=== PATIENT | female | born 1960 | race Asian ===

== ENCOUNTER 2016-08-24 10:21 | Inpatient (IN) | payer MEDICARE, MEDICAID ==
--- NOTE | 2016-08-24 10:59 | ED Physician Chart ---
Chief Complaint/HPI - Patient Information Date Seen:: 08/24/16 Time Seen:: 10:45 Chief Complaint:: agitation History of Present Illness:: This 56-year-old female was discharged from a assisted facility last week. She has since then been living with her elderly mother. She was fine for the first 2-3 days only but then had a hard time sleeping at night. Yesterday the patient became increasingly agitated and for example asked her mother to leave the house. The patient is accompanied by her brother. The plan is to have the patient readmitted to the assisted facility but the they will accept her only after she's been discharged from an acute care facility. Allergies:: Allergies Allergy/AdvReac Type Severity Reaction Status Date / Time No Known Allergies Allergy Verified 08/24/16 10:47 Vitals:: Vital Signs - 8 hr 08/24/16 10:25 Temp 98.9 F HR 108 RR 20 BP 145/73 O2 Sat % 98 Historian:: Patient, Family Member Review:: Nurse's Note Reviewed Review of Systems - Review of Systems General/Constitutional: No fever, No chills Skin: No skin lesions Head: No headache Eyes: No loss of vision ENT: No earache Neck: No neck pain Cardio Vascular: No chest pain, No palpitations Pulmonary: No SOB GI: No nausea, No vomiting G/U: No dysuria, No frequency Musculoskeletal: No bone or joint pain, No back pain Endocrine: No polyuria, No polydipsia Psychiatric: Prior psych history, Depression Hematopoietic: No bruising Allergic/Immuno: No urticaria Neurological: No syncope, No focal symptoms Past Medical History - Past Medical History Past Medical History: HTN (chronic renal disease; hypothyroidism; hyperlipidemia ; paranoid schizophrenia; anxiety; insomnia; major depression), Dyslipidemia, Thyroid disorder, Other (chronic renal disease; type 2 diabetes;) Family History: Diabetes Melitus, HTN Social History: Smoker, No Alcohol Surgical History: other (repair of left wrist laceration sustained 20 years ago in a suicide attempt) Psychiatricy History: Depression, Schizophrenia Medication: Reviewed Family Medical History - Family Member Father Age: 62 Ethnicity: Non- Living Status: Hx Family Hypertension: Yes Hx Family Stroke: Yes Hx Family Diabetes: Yes Physical Exam - Physical Examination General/Constitutional: Well-developed, well-nourished, Alert, No distress, Non- toxic appearing, Ambulatory Other Gen/Cons comments:: Alert and oriented to the correct year only Head: Atraumatic Eyes: Lids, conjuctiva normal, PERRL Skin: Nl inspection, No rash, No skin lesions, No ecchymosis, Well hydrated, No lymphadenopathy ENMT: External ears, nose nl, TM canals nl, Nasal exam nl, Oropharynx nl, Tonsils nl Other ENMT comments:: Some teeth carious to gumline Neck: No nuchal rigidity Respiratory: Nl effort/Exclusion, Clear to Auscultation Cardio Vascular: RRR, No murmur, gallop, rubs, NL S1 S2 GI: No tenderness/rebounding/guarding, No organomegaly, Nondistended, No mass/ bruits : No CVA tenderness Extremities: No tenderness or effusion, Full ROM, Normal digits & nails Neuro/Psych: Normal gait, No focal deficits Misc: Normal back Labs/Radiology/EKG Results - Lab Results Results: Laboratory Results - last 24 hr 08/24/16 08/24/16 11:03 11:03 WBC 7.7 RBC 3.87 Hgb 12.4 Hct 35.3 MCV 91.3 MCH 32.0 H MCHC Differential 35.0 RDW 11.8 Plt Count 242 MPV 7.9 Neutrophils % 68.5 Lymphocytes % 24.4 Monocytes % 5.8 Eosinophils % 0.8 Basophils % 0.5 Sodium 131 L Potassium 4.1 Chloride 103 Carbon Dioxide 24.0 Anion Gap 8.1 BUN 29 H Creatinine 1.7 H Est GFR ( Amer) 39.7 Est GFR (Non-Af Amer) 32.8 BUN/Creatinine Ratio 17.1 Glucose 352 H Calcium 8.9 Triglycerides 185 H Cholesterol 169 LDL Cholesterol Direct 97 HDL Cholesterol 49 - EKG Interpretations Rate & Rhythm: normal sinus rhythm with a rate of 95 [place]: left axis deviation Intervals: incomplete right bundle-branch block ED Septic Shock - . Is Septic Shock (SBP<90, OR Lactate>4 mmol\L) present?: No - <6hrs of presentation: Vital Signs: Vital Signs - 8 hr 08/24/16 10:25 Temp 98.9 F HR 108 RR 20 BP 145/73 O2 Sat % 98 Reassessment (Disposition) - Reassessment Reassessment Condition:: Unchanged - Diagnosis Diagnosis:: paranoid schiizophrenia; hyponatremia; renal insufficiency - Patient Disposition Admitted to:: [facility] Spoke to:: David Luther Admitting Medical Physician:: David Luther Admitting Psych Physician:: Chidi Guardado Condition at Disposition:: Stable, Unchanged ED Discharge Plan - Patient Disposition Instructions: Psychosis
[2016-08-24 11:10] LABS: % BASOPHILS 0.5 % (0.0-2.0); % EOSINOPHILS 0.8 % (0.0-5.0); % LYMPHOCYTES 24.4 % (20.0-50.0); % MONOCYTES 5.8 % (2.0-10.0); % NEUTROPHILS 68.5 % (40.0-80.0); HEMATOCRIT 35.3 % (35.0-45.0); HEMOGLOBIN 12.4 gm/dL (11.7-15.5); MEAN CELL VOLUME 91.3 fl (81-100); MEAN PLATELET VOLUME 7.9 fl; NEUTROPHILE ABSOLUTE 5.3 Th/cmm (1.8-8.0); PLATELET COUNT 242 Th/cmm (150-400); RED BLOOD COUNT 3.87 Mil/cmm (3.80-5.10); RED CELL DISTRIBUTION WIDTH 11.8 % (11.5-20.0); WHITE BLOOD COUNT 7.7 Th/cmm (4.8-10.8)
[2016-08-24 11:32] LABS: ANION GAP 8.1 (7.0-16.0); BUN/CREATININE RATIO 17.1; CALCIUM SERUM 8.9 mg/dL (8.6-10.3); CREATININE - SERUM 1.7 mg/dL (0.6-1.2); POTASSIUM SERUM 4.1 mEq/L (3.5-5.1)
[2016-08-24] MEDS ORDERED: Maalox 30 mL Cup PO PRN (16:10)
[2016-08-24] MEDS ORDERED: Magnesium Hydroxide (MOM) 30 mL UDC PO PRN (16:10)
[2016-08-24 16:20] VITALS: BP 142/84
[2016-08-24] MEDS ORDERED: Haloperidol Lactate 5 mg/mL 1mL Vial IM ONE (16:42)
[2016-08-24] MEDS ORDERED: Haloperidol Lactate 5 mg/mL 1mL Vial ONE (16:44)
[2016-08-24] MEDS ORDERED: Non-Formulary Item 1 EA (Lisinopril [Zestril*] 2.5 MG) PO SCH (21:00)
[2016-08-25] MEDS: INSULIN ASPART SLIDING SCALE 100 UNITS/ML UNIT SUBQ SCH ×2 (06:51→17:07)
[2016-08-25 08:09] LABS: HEP B CORE IGM Negative (Negative); HEP C ANTIBODY <0.1 s/co ratio (0.0-0.9)
[2016-08-25] MEDS: Benztropine 1 MG TAB PO SCH (08:56)
[2016-08-25] MEDS: Multivitamin Tab PO SCH (08:56)
[2016-08-25] MEDS: Insulin Detemir 100 units/mL 10mL Vial SUBQ SCH ×2 (08:58→17:09)
--- NOTE | 2016-08-25 14:21 | History & Physical ---
ADMIT DATE: 08/24/2016 PATIENT IDENTIFICATION: A 56-year-old female. CHIEF COMPLAINT: "I want to go home." HISTORY OF PRESENT ILLNESS: A 56-year-old [place] female who was discharged from retirement facility to home and she was living with her and mother. The patient was noted to have increasing agitation and difficulty in sleeping. The patient was brought in to the Emergency Room at the [facility]. The patient was evaluated and subsequently admitted to Geropsych Unit. PAST MEDICAL HISTORY: Remarkable for: 1. Diabetes. 2. Hypertension. 3. Hyperlipidemia. 4. DJD. 5. Hypothyroidism. 6. Psychotic disorder. MEDICATIONS AT HOME: List has been reviewed and reconciled appropriately. ALLERGIES: The patient is allergic to not on any medications. SOCIAL HISTORY: She lives with her mother. The patient occasionally smokes. The patient denies any alcohol or drug use. She used to work in a [employer] prior to be ____ her disability. FAMILY MEDICAL HISTORY: Remarkable for diabetes and hypertension. REVIEW OF SYSTEMS: The patient currently denies any headache, blurred vision, double vision, dysphagia, odynophagia, runny nose, stuffy nose, fever, chills, cough, chest pain, shortness of breath, palpitation, dizziness, nausea, vomiting, diarrhea, dysuria, hematuria, hematochezia, melena. No seizure or syncopal episode. PHYSICAL EXAMINATION: GENERAL: The patient is alert, awake, oriented, lying in the bed without any acute distress. VITAL SIGNS: Temperature 98, pulse is 74, respiratory rate 18, blood pressure is ____/73. SKIN: Warm to touch. Adequate skin turgor. No petechiae. No purpura. HEENT: Normocephalic, atraumatic. Extraocular muscles are intact. Tongue was pink and coated. Multiple absent teeth and poor dental hygiene noted. No oral lesions noted. No exudate. No sinus tenderness. External auditory canal and tympanic membranes are well visualized. NECK: Supple, no JVD, no hepatojugular reflux. No lymphadenopathy, thyromegaly or carotid bruit. HEART: Both heart sounds are regular. No S3, no S4, no murmur. CHEST: Lung equal in expansion, no wheezing, no crackles. ABDOMEN: Soft. No guarding, no rigidity. Liver and spleen palpable. No palpable mass. EXTREMITIES: No edema, no cyanosis or clubbing. Peripheral pulses +2. No calf tenderness noted. NEUROLOGIC: Alert, awake, lying in the bed without any acute distress, 2-12 cranial nerves are intact. Power in upper and lower extremities 5-. Sensation to touch intact. Babinskis in both toes are going down. No cerebral sign. AVAILABLE DIAGNOSTIC DATA: Performed in the Emergency Room has been reviewed. CLINICAL IMPRESSION: 1. Most likely chronic kidney disease, stage III. 2. Diabetes. 3. Hypertension. 4. Hyperlipidemia. 5. Hypothyroidism. 6. Degenerative joint disease. 7. Psychotic disorder exacerbation. 8. Debility. PLAN: The patient is admitted at this time to psychiatric unit. Psychiatric evaluation and management deferred to psychiatrist. The patient will be placed on sliding scale insulin along with Levemir. Continue her lisinopril for the hypertension and metformin for the diabetes along with other medication as the patient was receiving. The patient will be followed by us during the stay in the Geropsych Unit at [facility]. The patient will be given general nursing care as well. Fall precaution will be given. Care plan has been reviewed and discussed with the staff. JOB# [id number]
--- NOTE | 2016-08-25 15:12 | History & Physical ---
ADMIT DATE: 08/25/2016 IDENTIFYING INFORMATION: The patient is 56-year-old female. REASON FOR ADMISSION: The patient came in because of agitation, uncontrolled at home. HISTORY OF PRESENT ILLNESS: The patient was a poor historian. ___ with her, she said she is not going to talk to me. She has her own psychiatrist. According to the information from the staff that apparently she is ____ in [facility] until 2 weeks ago and she went home. Her brother said she was not manageable at home and when she first came to the unit, she was very agitated, loud, very hard to redirect, had to be medicated. The patient apparently has been on psychotropic medication. She is on Abilify 20 mg at bedtime. She is on Depakote. The dose is not confirmed yet. The patient is on Cogentin 1 mg daily. The patient was a very poor historian and refused to talk to me. When I started ____ questions, she started yelling and punching the bed. She said she is not willing to talk to me, very poor insight. PAST PSYCHIATRIC HISTORY: Some mental illness. MEDICAL HISTORY: Deferred to the medical problems. ALLERGIES: No known drug allergies. MEDICATIONS: She is diabetic. She has high blood pressure. She is also on Zoloft 50 mg daily, Klonopin 1 mg twice a day, metformin, diphenhydramine. FAMILY AND SOCIAL HISTORY: Unable to get any information. The only information I had that she was in a halfway, [facility], then went home 2 weeks ago and has been causing management problems. MENTAL STATUS EXAMINATION: The patient was uncooperative, loud, punching the bed when I started asking questions, telling me is none of my business, how old she is or she has children. She would not answer any of my questions. I was unable to do a formal mental status exam on her as always she was very agitated, irritable, unable to make sense be reasonable. Unable to test her memory. Her insight and judgment is impaired. I was unable to ask about her sleep or appetite, whether she wants to harm herself or anybody, whether she is hearing voices or seeing things. IMPRESSION: AXIS I: Psychosis, not otherwise specified, dementia, cognitive disorder, not otherwise specified. MEDICAL DIAGNOSES: Diabetes mellitus and hypertension. Her assets, she is taking her medication. Negative poor coping skills. INITIAL TREATMENT PLAN: The patient will be started back on her medication. We will do group therapy, milieu therapy, individual therapy. ESTIMATED LENGTH OF STAY: 3-7 days. DISCHARGE CRITERIA: Decrease agitation and psychosis. After discharge, outpatient. PSYCHIATRIC# [id number]
[2016-08-26] MEDS: INSULIN ASPART SLIDING SCALE 100 UNITS/ML UNIT SUBQ SCH ×2 (06:37→16:49)
[2016-08-26] MEDS: Benztropine 1 MG TAB PO SCH (09:11)
[2016-08-26] MEDS: Multivitamin Tab PO SCH (09:11)
[2016-08-26] MEDS: Insulin Detemir 100 units/mL 10mL Vial SUBQ SCH ×2 (10:23→18:34)
--- NOTE | 2016-08-26 21:54 | Progress Notes ---
DATE: 08/26/[address] Guardado. Case was discussed with staff of the patient, reviewed records. The patient continues to be unpredictable and impulsive. She is conserved. She has been needing redirection. She is on Depakote 500 mg twice a day, Zoloft 50 mg daily, aripiprazole 20 mg at bedtime, and Klonopin 1 mg twice a day with no side effects with the medication, no sedation, no nausea, and no extrapyramidal symptoms. Also, she is on Depakote ____ mg twice a day. Depakote level is pending. We will continue to work with the patient in group therapy, milieu therapy, and adjust the medication as needed. JOB# [id number]
[2016-08-27] MEDS: INSULIN ASPART SLIDING SCALE 100 UNITS/ML UNIT SUBQ SCH ×2 (06:36→17:44)
[2016-08-27] MEDS: Multivitamin Tab PO SCH (08:16)
[2016-08-27] MEDS: Insulin Detemir 100 units/mL 10mL Vial SUBQ SCH ×2 (08:17→17:45)
[2016-08-27] MEDS: Benztropine 1 MG TAB PO SCH (08:17)
--- NOTE | 2016-08-28 04:41 | Progress Notes ---
DATE: 08/27/2016 Case was discussed with staff of the patient, reviewed records. The patient continues to be unpredictable, impulsive, continues to have poor insight. Unable to make safe plan for self-care. Continues to have episodes where she is loud, needing redirection. Continues to be unpredictable, impulsive. She has a conservator that is her brother. She has been compliant with the medication, no side effects, no sedation, no nausea and no extrapyramidal symptoms. Lab work showed Depakote levels to be a 56.3, which is within acceptable range. MRSA screen was negative. Her TSH was within normal range. RPR nonreactive. She has high triglycerides 185. The rest of the lipid profile within normal range. Hemoglobin A1c was high at 7.3. Chemistry panel showed low sodium and high blood sugar, high BUN and high creatinine, defer that to the medical doctor. EKG shows normal axis, sinus rhythm, incomplete right bundle branch block. I will be consulting Dr. Luther regarding abnormal lab work and EKG ____ Delfina, the charge nurse regarding that as there is no way to ____ and we will continue outpatient group therapy, milieu therapy and adjust medications as needed. JOB# [id number]
[2016-08-28] MEDS: INSULIN ASPART SLIDING SCALE 100 UNITS/ML UNIT SUBQ SCH ×2 (07:05→17:28)
[2016-08-28] MEDS: Multivitamin Tab PO SCH (08:59)
[2016-08-28] MEDS: Benztropine 1 MG TAB PO SCH (09:00)
--- NOTE | 2016-08-28 09:38 | General Progress Note ---
Subjective - Review of Systems Subjective: PATIENT IS SEEN AND EXAMINED. UNABLE TO GET MEANINGFUL HISTORY. CHART REVIEWED. DISCUSSED WITH STAFF RE:CONCERNS. Objective - Results Result Diagrams: 08/24/16 11:03 08/24/16 11:03 Recent Labs: Laboratory Last Values WBC 7.7 Th/cmm (4.8-10.8) 08/24/16 11:03 RBC 3.87 Mil/cmm (3.80-5.10) 08/24/16 11:03 Hgb 12.4 gm/dL (11.7-15.5) 08/24/16 11:03 Hct 35.3 % (35.0-45.0) 08/24/16 11:03 MCV 91.3 fl (81-100) 08/24/16 11:03 MCH 32.0 pg (27.0-31.0) H 08/24/16 11:03 MCHC Differential 35.0 pg (28.0-36.0) 08/24/16 11:03 RDW 11.8 % (11.5-20.0) 08/24/16 11:03 Plt Count 242 Th/cmm (150-400) 08/24/16 11:03 MPV 7.9 fl 08/24/16 11:03 Neutrophils % 68.5 % (40.0-80.0) 08/24/16 11:03 Lymphocytes % 24.4 % (20.0-50.0) 08/24/16 11:03 Monocytes % 5.8 % (2.0-10.0) 08/24/16 11:03 Eosinophils % 0.8 % (0.0-5.0) 08/24/16 11:03 Basophils % 0.5 % (0.0-2.0) 08/24/16 11:03 Sodium 131 mEq/L (136-145) L 08/24/16 11:03 Potassium 4.1 mEq/L (3.5-5.1) 08/24/16 11:03 Chloride 103 mEq/L (98-107) 08/24/16 11:03 Carbon Dioxide 24.0 mEq/L (21.0-31.0) 08/24/16 11:03 Anion Gap 8.1 (7.0-16.0) 08/24/16 11:03 BUN 29 mg/dL (7-25) H 08/24/16 11:03 Creatinine 1.7 mg/dL (0.6-1.2) H 08/24/16 11:03 Est GFR ( Amer) 39.7 ml/min (>90) 08/24/16 11:03 Est GFR (Non-Af Amer) 32.8 ml/min 08/24/16 11:03 BUN/Creatinine Ratio 17.1 08/24/16 11:03 Glucose 352 mg/dL (70-105) H 08/24/16 11:03 POC Glucose 100 MG/DL (70 - 105) 08/28/16 05:56 Hemoglobin A1c % 7.3 % (4.0-6.0) H 08/24/16 11:03 Calcium 8.9 mg/dL (8.6-10.3) 08/24/16 11:03 Triglycerides 185 mg/dL (<150) H 08/24/16 11:03 Cholesterol 169 mg/dL (<200) 08/24/16 11:03 LDL Cholesterol Direct 97 mg/dL (75-193) 08/24/16 11:03 HDL Cholesterol 49 mg/dL (23-92) 08/24/16 11:03 TSH 0.66 uIU/ml (0.34-5.60) 08/24/16 11:03 Valproic Acid 56.3 ug/mL (50.0-100.0) 08/26/16 12:36 RPR NONREACTIVE (NONREACTIVE) 08/24/16 11:03 Hepatitis A IgM Ab Negative (Negative) 08/24/16 11:03 Hep Bs Antigen Negative (Negative) 08/24/16 11:03 Hep B Core IgM Ab Negative (Negative) 08/24/16 11:03 Hepatitis C Antibody <0.1 s/co ratio (0.0-0.9) 08/24/16 11:03 - Physical Exam Vitals and I&O: Vital Signs Temp 98.3 F 08/28/16 06:06 Pulse 96 08/28/16 06:06 Resp 20 08/28/16 06:06 BP 118/80 08/28/16 06:06 Pulse Ox 99 08/28/16 06:06 Intake & Output 08/27/16 08/28/16 08/28/16 18:59 06:59 18:59 Intake Total 1000 240 Balance 1000 240 Intake: Oral 1000 240 Other: # Voids 4 2 # Bowel Movements 1 0 Stool Characteristics Soft Formed Active Medications: Current Medications Acetaminophen (Tylenol) 650 mg PO Q4HR PRN PRN Reason: Pain (Mild) Stop: 10/23/16 16:09 Last Admin: 08/28/16 08:59 Dose: 650 mg Al Hydrox/Mg Hydrox/Simethicone (Maalox) 30 ml PO Q4HR PRN PRN Reason: GI DISTRESS Stop: 10/23/16 16:09 Aripiprazole (Abilify) 20 mg PO HS JOURDAN Stop: 10/23/16 20:59 Last Admin: 08/27/16 20:48 Dose: 20 mg Benztropine Mesylate (Cogentin) 1 mg PO DAILY JOURDAN Stop: 10/24/16 08:59 Last Admin: 08/28/16 09:00 Dose: 1 mg Clonazepam (Klonopin) 1 mg PO BID JOURDAN PRN Reason: Protocol Stop: 10/24/16 08:59 Last Admin: 08/28/16 09:00 Dose: 1 mg Divalproex Sodium (Depakote Dr) 500 mg PO BID JOURDAN PRN Reason: Protocol Stop: 10/24/16 08:59 Last Admin: 08/28/16 09:00 Dose: 500 mg Docusate Sodium (Colace) 100 mg PO DAILY JOURDAN Stop: 10/24/16 08:59 Last Admin: 08/28/16 09:00 Dose: 100 mg Insulin Aspart (Novolog Insulin Sliding Scale) 0 units SUBQ BIDAC JOURDAN PRN Reason: Protocol Stop: 10/24/16 07:29 Last Admin: 08/28/16 07:05 Dose: Not Given Insulin Detemir (Levemir Insulin) 23 units SUBQ BID JOURDAN PRN Reason: Protocol Stop: 10/24/16 08:59 Last Admin: 08/27/16 17:45 Dose: 23 unit Lisinopril (Zestril) 2.5 mg PO HS JOURDAN Stop: 10/23/16 20:59 Last Admin: 08/27/16 20:48 Dose: 2.5 mg Lorazepam (Ativan) 1 mg PO Q4HR PRN; Protocol PRN Reason: Anxiety Stop: 09/23/16 16:09 Lorazepam (Ativan) 1 mg PO Q6HR JOURDAN PRN Reason: Protocol Stop: 10/24/16 00:00 Last Admin: 08/28/16 06:45 Dose: 1 mg Multivitamins/Vitamin C (Theragran) 1 tab PO DAILY JOURDAN Stop: 10/24/16 08:59 Last Admin: 08/28/16 08:59 Dose: 1 tab Sertraline HCl (Zoloft) 50 mg PO DAILY JOURDAN PRN Reason: Protocol Stop: 10/24/16 08:59 Last Admin: 08/28/16 09:00 Dose: 50 mg Zolpidem Tartrate (Ambien) 5 mg PO HS PRN PRN Reason: Insomnia Stop: 10/23/16 16:09 Last Admin: 08/24/16 21:51 Dose: 5 mg General: Alert, Cooperative, No acute distress HEENT: Atraumatic, PERRLA, EOMI Neck: Supple Cardiovascular: Regular rate, Normal S1, Normal S2 Lungs: Clear to auscultation Abdomen: Bowel sounds, Soft Extremities: Other (no edema.) Neurological: Normal gait, Normal speech, Strength at 5/5 X4 ext, Normal tone Assessment/Plan - Assessment Assessment: DIABETES INSULIN REQUIRING. HYPERTENSION. HYPOTHYRODISM. CKD3. DJD. PSYCH DISORDER. HYPERLIPEDEMIA. - Plan Plan: MONITOR GLUCOSE AND VITALS INSULIN THERAPY PSYCH MEDS PSYCH FOLLOW UP. GENERAL NURSING CARE MEDICATION MANAGEMENT. SYMPTOMS CONTROL CONTINUE CURRENT CARE DISCUSSED WITH STAFF. Nutritional Asmnt/Malnutr-PDOC - Dietary Evaluation Malnutrition Findings (Please click <Entered> for more info): Nutritional Asmnt/Malnutrition Start: 08/25/16 14: 17 Text: Status: Active Freq: Document 08/25/16 14:17 GSUN (Rec: 08/25/16 14:30 GSUN [email or web address]) Nutritional Asmnt/Malnutrition Patient General Information Nutritional Screening High Risk Screening Diagnosis ER: paranoid schizophrenia, renal insufficiency Pertinent Medical Hx/Surgical Hx ER: HTN, chronic renal disease , hypothyroidism, hyperlipidemia, paranoid schizophrenia, anxiety, insomnia, major depression, DM2 Subjective Information 56 year old female from SNF. Upon entering pt's room, pt asked RD to leave, unable to interview. Mild fat wasting to legs noted. Spoke to MANAN Haile RN stated pt has very good appetite, eats whatever she wants, does not follow a DM diet, no difficulties chewing/ swallowing noted. RD discussed [id number] for pt with RN. Current Diet Order/ Nutrition Support [id number] Pertinent Medications Maalox, Colace, Novolog, Levemir, Theragran Pertinent Labs 08/24: sodium 131L, BUN 29H, creaitnine 1.7H, glucose 352H, A1c 7.3H, triglycerides 185H Nutritional Hx/Data Height 1.65 m Height (Calculated Centimeters) 165.1 Current Weight (lbs) 63.957 kg Weight (Calculated Kilograms) 64.0 Weight (Calculated Grams) 93995.5 [place] Body Weight 125 Weight Status Approriate GI Symptoms Skin Integrity/Comment: Paul 20. Skin intact. Estimated Nutritional Goals BEE in Kcals: Using Current wt Calories/Kcals/Kg CBW 64kg Kcals Calculated 1600-1920kcal (25-30kcal/kg) Protein: Using Current wt Protein g/kg: CBW Protein Calculated 38-1g (0.6-1g/kg, renal) Fluid: ml Per MD (hx. renal) Nutritional Problem 1. Problem Problem Altered nutrition related laboratory values related to Etiology DM aeb Signs/Symptoms: A1c 7.3, glucose 352 on adm Intervention/Recommendation Comments 1. Recommend [id number] to promote glycemic control. Discussed with MANAN Haile. 2. Monitor sodium level, recommend low sodium restriction to aid renal function if/once sodium level normalize. Expected Outcomes/Goals Expected Outcomes/Goals 1. PO intake to meet at least 75% of estimated nutritional needs.
[2016-08-28] MEDS: Insulin Detemir 100 units/mL 10mL Vial SUBQ SCH ×2 (09:45→17:31)
[2016-08-28] MEDS ORDERED: ARIPIPRAZOLE PO ONE (14:30)
[2016-08-28] MEDS ORDERED: Haloperidol Lactate 5 mg/mL 1mL Vial IM ONE (14:37)
[2016-08-28] MEDS: ARIPIPRAZOLE PO SCH (21:00)
[2016-08-29] MEDS: INSULIN ASPART SLIDING SCALE 100 UNITS/ML UNIT SUBQ SCH ×2 (06:47→16:52)
--- NOTE | 2016-08-29 07:33 | Progress Notes ---
DATE: 08/28/2016 Case was discussed with staff of the patient, reviewed records. The patient continues to be unpredictable, intrusive, interfering in everybody's business, loud, needing redirection, unpredictable, impulsive, continues to have poor insight. Continues to be unable to make safe plan for self-care. She is conserved, needing redirection. She is on Abilify 20 mg a day; I will be increasing the dose to 25 mg a day, and so far no side effects, no sedation, no nausea, no extrapyramidal symptoms. Her Depakote level is 56.3, which is within acceptable range which also means she has been taking her medication. We will continue to work with the patient in group therapy, milieu therapy, and adjust the medication as needed. JOB# [id number]
[2016-08-29] MEDS: Benztropine 1 MG TAB PO SCH (09:41)
[2016-08-29] MEDS: Insulin Detemir 100 units/mL 10mL Vial SUBQ SCH ×2 (09:42→17:59)
[2016-08-29] MEDS: Multivitamin Tab PO SCH (09:42)
--- NOTE | 2016-08-29 18:44 | General Progress Note ---
Subjective - Review of Systems Subjective: PATIENT IS SEEN AND EXAMINED. CHART REVIEWED. WHEN AM I GOING HOME. DISCUSSED WITH STAFF RE:CONCERNS. Objective - Results Result Diagrams: 08/24/16 11:03 08/24/16 11:03 Recent Labs: Laboratory Last Values WBC 7.7 Th/cmm (4.8-10.8) 08/24/16 11:03 RBC 3.87 Mil/cmm (3.80-5.10) 08/24/16 11:03 Hgb 12.4 gm/dL (11.7-15.5) 08/24/16 11:03 Hct 35.3 % (35.0-45.0) 08/24/16 11:03 MCV 91.3 fl (81-100) 08/24/16 11:03 MCH 32.0 pg (27.0-31.0) H 08/24/16 11:03 MCHC Differential 35.0 pg (28.0-36.0) 08/24/16 11:03 RDW 11.8 % (11.5-20.0) 08/24/16 11:03 Plt Count 242 Th/cmm (150-400) 08/24/16 11:03 MPV 7.9 fl 08/24/16 11:03 Neutrophils % 68.5 % (40.0-80.0) 08/24/16 11:03 Lymphocytes % 24.4 % (20.0-50.0) 08/24/16 11:03 Monocytes % 5.8 % (2.0-10.0) 08/24/16 11:03 Eosinophils % 0.8 % (0.0-5.0) 08/24/16 11:03 Basophils % 0.5 % (0.0-2.0) 08/24/16 11:03 Sodium 131 mEq/L (136-145) L 08/24/16 11:03 Potassium 4.1 mEq/L (3.5-5.1) 08/24/16 11:03 Chloride 103 mEq/L (98-107) 08/24/16 11:03 Carbon Dioxide 24.0 mEq/L (21.0-31.0) 08/24/16 11:03 Anion Gap 8.1 (7.0-16.0) 08/24/16 11:03 BUN 29 mg/dL (7-25) H 08/24/16 11:03 Creatinine 1.7 mg/dL (0.6-1.2) H 08/24/16 11:03 Est GFR ( Amer) 39.7 ml/min (>90) 08/24/16 11:03 Est GFR (Non-Af Amer) 32.8 ml/min 08/24/16 11:03 BUN/Creatinine Ratio 17.1 08/24/16 11:03 Glucose 352 mg/dL (70-105) H 08/24/16 11:03 POC Glucose 150 MG/DL (70 - 105) H 08/29/16 16:10 Hemoglobin A1c % 7.3 % (4.0-6.0) H 08/24/16 11:03 Calcium 8.9 mg/dL (8.6-10.3) 08/24/16 11:03 Triglycerides 185 mg/dL (<150) H 08/24/16 11:03 Cholesterol 169 mg/dL (<200) 08/24/16 11:03 LDL Cholesterol Direct 97 mg/dL (75-193) 08/24/16 11:03 HDL Cholesterol 49 mg/dL (23-92) 08/24/16 11:03 TSH 0.66 uIU/ml (0.34-5.60) 08/24/16 11:03 Valproic Acid 56.3 ug/mL (50.0-100.0) 08/26/16 12:36 RPR NONREACTIVE (NONREACTIVE) 08/24/16 11:03 Hepatitis A IgM Ab Negative (Negative) 08/24/16 11:03 Hep Bs Antigen Negative (Negative) 08/24/16 11:03 Hep B Core IgM Ab Negative (Negative) 08/24/16 11:03 Hepatitis C Antibody <0.1 s/co ratio (0.0-0.9) 08/24/16 11:03 - Physical Exam Vitals and I&O: Vital Signs Temp 98 F 08/29/16 15:47 Pulse 87 08/29/16 15:47 Resp 19 08/29/16 15:47 BP 114/64 08/29/16 15:47 Pulse Ox 99 08/29/16 15:47 Intake & Output 08/28/16 08/29/16 08/29/16 18:59 06:59 18:59 Intake Total 1600 1700 Balance 1600 1700 Intake: Oral 1600 1700 Other: # Voids 4 2 6 # Bowel Movements 1 0 Active Medications: Current Medications Acetaminophen (Tylenol) 650 mg PO Q4HR PRN PRN Reason: Pain (Mild) Stop: 10/23/16 16:09 Last Admin: 08/29/16 11:15 Dose: 650 mg Al Hydrox/Mg Hydrox/Simethicone (Maalox) 30 ml PO Q4HR PRN PRN Reason: GI DISTRESS Stop: 10/23/16 16:09 Aripiprazole 15 mg/ (Aripiprazole 10 mg) 25 mg PO HS JOURDAN Stop: 10/27/16 20:59 Last Admin: 08/28/16 21:00 Dose: 25 mg Benztropine Mesylate (Cogentin) 1 mg PO DAILY JOURDAN Stop: 10/24/16 08:59 Last Admin: 08/29/16 09:41 Dose: 1 mg Clonazepam (Klonopin) 1 mg PO BID JOURDAN PRN Reason: Protocol Stop: 10/24/16 08:59 Last Admin: 08/29/16 16:23 Dose: 1 mg Divalproex Sodium (Depakote Dr) 500 mg PO BID JOURDAN PRN Reason: Protocol Stop: 10/24/16 08:59 Last Admin: 08/29/16 16:24 Dose: 500 mg Docusate Sodium (Colace) 100 mg PO DAILY JOURDAN Stop: 10/24/16 08:59 Last Admin: 08/29/16 09:42 Dose: 100 mg Insulin Aspart (Novolog Insulin Sliding Scale) 0 units SUBQ BIDAC JOURDAN PRN Reason: Protocol Stop: 10/24/16 07:29 Last Admin: 08/29/16 16:52 Dose: Not Given Insulin Detemir (Levemir Insulin) 23 units SUBQ BID JOURDAN PRN Reason: Protocol Stop: 10/24/16 08:59 Last Admin: 08/29/16 17:59 Dose: 23 unit Lisinopril (Zestril) 2.5 mg PO HS JOURDAN Stop: 10/23/16 20:59 Last Admin: 08/28/16 21:00 Dose: 2.5 mg Lorazepam (Ativan) 1 mg PO Q4HR PRN; Protocol PRN Reason: Anxiety Stop: 09/23/16 16:09 Lorazepam (Ativan) 1 mg PO Q6HR JOURDAN PRN Reason: Protocol Stop: 10/24/16 00:00 Last Admin: 08/29/16 17:59 Dose: 1 mg Multivitamins/Vitamin C (Theragran) 1 tab PO DAILY JOURDAN Stop: 10/24/16 08:59 Last Admin: 08/29/16 09:42 Dose: 1 tab Sertraline HCl (Zoloft) 50 mg PO DAILY JOURDAN PRN Reason: Protocol Stop: 10/24/16 08:59 Last Admin: 08/29/16 09:41 Dose: 50 mg Zolpidem Tartrate (Ambien) 5 mg PO HS PRN PRN Reason: Insomnia Stop: 10/23/16 16:09 Last Admin: 08/28/16 21:00 Dose: 5 mg General: Alert, Cooperative, No acute distress HEENT: Atraumatic, PERRLA, EOMI Neck: Supple, +2 carotid pulse wo bruit Cardiovascular: Regular rate, Normal S1, Normal S2 Lungs: Clear to auscultation Abdomen: Bowel sounds, Soft Extremities: Other (no edema.) Neurological: Normal gait, Strength at 5/5 X4 ext Assessment/Plan - Assessment Assessment: DIABETES INSULIN REQUIRING. HYPERTENSION. HYPOTHYRODISM. CKD3. DJD. PSYCH DISORDER. HYPERLIPEDEMIA. - Plan Plan: MONITOR GLUCOSE AND VITALS INSULIN THERAPY PSYCH MEDS PSYCH FOLLOW UP. GENERAL NURSING CARE MEDICATION MANAGEMENT. SYMPTOMS CONTROL CONTINUE CURRENT CARE DISCUSSED WITH STAFF. Nutritional Asmnt/Malnutr-PDOC - Dietary Evaluation Malnutrition Findings (Please click <Entered> for more info): Nutritional Asmnt/Malnutrition Start: 08/25/16 14: 17 Text: Status: Active Freq: Document 08/25/16 14:17 GSUN (Rec: 08/25/16 14:30 [email or web address]) Nutritional Asmnt/Malnutrition Patient General Information Nutritional Screening High Risk Screening Diagnosis ER: paranoid schizophrenia, renal insufficiency Pertinent Medical Hx/Surgical Hx ER: HTN, chronic renal disease , hypothyroidism, hyperlipidemia, paranoid schizophrenia, anxiety, insomnia, major depression, DM2 Subjective Information 56 year old female from SNF. Upon entering pt's room, pt asked RD to leave, unable to interview. Mild fat wasting to legs noted. Spoke to MANAN Haile RN stated pt has very good appetite, eats whatever she wants, does not follow a DM diet, no difficulties chewing/ swallowing noted. RD discussed [id number] for pt with RN. Current Diet Order/ Nutrition Support [id number] Pertinent Medications Maalox, Colace, Novolog, Levemir, Theragran Pertinent Labs 08/24: sodium 131L, BUN 29H, creaitnine 1.7H, glucose 352H, A1c 7.3H, triglycerides 185H Nutritional Hx/Data Height 1.65 m Height (Calculated Centimeters) 165.1 Current Weight (lbs) 63.957 kg Weight (Calculated Kilograms) 64.0 Weight (Calculated Grams) 96041.5 [place] Body Weight 125 Weight Status Approriate GI Symptoms Skin Integrity/Comment: Paul 20. Skin intact. Estimated Nutritional Goals BEE in Kcals: Using Current wt Calories/Kcals/Kg CBW 64kg Kcals Calculated 1600-1920kcal (25-30kcal/kg) Protein: Using Current wt Protein g/kg: CBW Protein Calculated 38-1g (0.6-1g/kg, renal) Fluid: ml Per MD (hx. renal) Nutritional Problem 1. Problem Problem Altered nutrition related laboratory values related to Etiology DM aeb Signs/Symptoms: A1c 7.3, glucose 352 on adm Intervention/Recommendation Comments 1. Recommend [id number] to promote glycemic control. Discussed with MANAN Haile. 2. Monitor sodium level, recommend low sodium restriction to aid renal function if/once sodium level normalize. Expected Outcomes/Goals Expected Outcomes/Goals 1. PO intake to meet at least 75% of estimated nutritional needs.
[2016-08-29] MEDS: ARIPIPRAZOLE PO SCH (20:44)
--- NOTE | 2016-08-30 05:55 | Progress Notes ---
DATE: 08/29/2016 Case discussed with staff of the patient, reviewed records. The patient has been very agitated yesterday, had to be medicated with Haldol and Benadryl. The patient continues to be unpredictable, impulsive, needing redirection. Continues to have poor insight. Unable to make safe plan for her self-care, loud, agitated. I did increase her Abilify dose yesterday and so far, no side effects, no sedation, no nausea, no extrapyramidal symptoms and we will continue to work with the patient in group therapy, milieu therapy, adjust the medication as needed. JOB# [id number]
[2016-08-30] MEDS: INSULIN ASPART SLIDING SCALE 100 UNITS/ML UNIT SUBQ SCH ×3 (06:30→17:19)
--- NOTE | 2016-08-30 07:56 | Progress Notes ---
DATE: 08/30/2016 SUBJECTIVE: Chart reviewed and the patient interviewed. Also discussed the patient's condition with the staff and reviewed records and labs. The patient is still severely manicy and paranoid. The patient did not stop talking most of the time during my interview and her speech is pressured. The patient also is still rambling and she has thought processes that are circumstantial and tangential with flight of ideas. The patient also is intrusive to others and she still gets aggressive and agitated easily. She also needs lots of redirections and she has difficulty following directions. The patient also is having a problem with her anger and she gets agitated when staff tries to redirect her and gets more agitated. The patient is disheveled. She also is restless and she has pressured speech. She also seems to be paranoid. Also thought processes are circumstantial and tangential with flight of ideas. ASSESSMENT: The patient is still manicy and psychotic. TREATMENT PLAN: We will continue to monitor her behavior and her condition closely. Also, it seems that the Abilify has not been helping the patients much. We will discontinue Abilify and we will start the patient on Seroquel in a dose of 50 mg twice a day and 100 mg at bedtime. Also, we will continue to work on her irritability and her agitation. Also, we will get Depakote blood level. JOB# [id number]
[2016-08-30] MEDS: Multivitamin Tab PO SCH (08:18)
[2016-08-30] MEDS: Benztropine 1 MG TAB PO SCH (08:20)
[2016-08-30] MEDS: Insulin Detemir 100 units/mL 10mL Vial SUBQ SCH ×2 (09:32→16:17)
[2016-08-30] MEDS ORDERED: Haloperidol Lactate 5 mg/mL 1mL Vial ONE (18:47)
[2016-08-30] MEDS ORDERED: Haloperidol Lactate 5 mg/mL 1mL Vial IM ONE (18:47)
[2016-08-31] MEDS: INSULIN ASPART SLIDING SCALE 100 UNITS/ML UNIT SUBQ SCH ×2 (06:40→16:39)
[2016-08-31] MEDS: Multivitamin Tab PO SCH (08:12)
[2016-08-31] MEDS: Benztropine 1 MG TAB PO SCH (08:13)
[2016-08-31] MEDS: Insulin Detemir 100 units/mL 10mL Vial SUBQ SCH ×2 (09:48→16:38)
--- NOTE | 2016-08-31 13:43 | General Progress Note ---
Subjective - Review of Systems Subjective: PATIENT IS SEEN AND EXAMINED. CHART REVIEWED. DISCUSSED WITH STAFF RE:CONCERNS. Objective - Results Result Diagrams: 08/24/16 11:03 08/24/16 11:03 Recent Labs: Laboratory Last Values WBC 7.7 Th/cmm (4.8-10.8) 08/24/16 11:03 RBC 3.87 Mil/cmm (3.80-5.10) 08/24/16 11:03 Hgb 12.4 gm/dL (11.7-15.5) 08/24/16 11:03 Hct 35.3 % (35.0-45.0) 08/24/16 11:03 MCV 91.3 fl (81-100) 08/24/16 11:03 MCH 32.0 pg (27.0-31.0) H 08/24/16 11:03 MCHC Differential 35.0 pg (28.0-36.0) 08/24/16 11:03 RDW 11.8 % (11.5-20.0) 08/24/16 11:03 Plt Count 242 Th/cmm (150-400) 08/24/16 11:03 MPV 7.9 fl 08/24/16 11:03 Neutrophils % 68.5 % (40.0-80.0) 08/24/16 11:03 Lymphocytes % 24.4 % (20.0-50.0) 08/24/16 11:03 Monocytes % 5.8 % (2.0-10.0) 08/24/16 11:03 Eosinophils % 0.8 % (0.0-5.0) 08/24/16 11:03 Basophils % 0.5 % (0.0-2.0) 08/24/16 11:03 Sodium 131 mEq/L (136-145) L 08/24/16 11:03 Potassium 4.1 mEq/L (3.5-5.1) 08/24/16 11:03 Chloride 103 mEq/L (98-107) 08/24/16 11:03 Carbon Dioxide 24.0 mEq/L (21.0-31.0) 08/24/16 11:03 Anion Gap 8.1 (7.0-16.0) 08/24/16 11:03 BUN 29 mg/dL (7-25) H 08/24/16 11:03 Creatinine 1.7 mg/dL (0.6-1.2) H 08/24/16 11:03 Est GFR ( Amer) 39.7 ml/min (>90) 08/24/16 11:03 Est GFR (Non-Af Amer) 32.8 ml/min 08/24/16 11:03 BUN/Creatinine Ratio 17.1 08/24/16 11:03 Glucose 352 mg/dL (70-105) H 08/24/16 11:03 POC Glucose 96 MG/DL (70 - 105) 08/31/16 06:15 Hemoglobin A1c % 7.3 % (4.0-6.0) H 08/24/16 11:03 Calcium 8.9 mg/dL (8.6-10.3) 08/24/16 11:03 Triglycerides 185 mg/dL (<150) H 08/24/16 11:03 Cholesterol 169 mg/dL (<200) 08/24/16 11:03 LDL Cholesterol Direct 97 mg/dL (75-193) 08/24/16 11:03 HDL Cholesterol 49 mg/dL (23-92) 08/24/16 11:03 TSH 0.66 uIU/ml (0.34-5.60) 08/24/16 11:03 Valproic Acid 58.7 ug/mL (50.0-100.0) 08/31/16 05:55 RPR NONREACTIVE (NONREACTIVE) 08/24/16 11:03 Hepatitis A IgM Ab Negative (Negative) 08/24/16 11:03 Hep Bs Antigen Negative (Negative) 08/24/16 11:03 Hep B Core IgM Ab Negative (Negative) 08/24/16 11:03 Hepatitis C Antibody <0.1 s/co ratio (0.0-0.9) 08/24/16 11:03 - Physical Exam Vitals and I&O: Vital Signs Temp 97.6 F 08/30/16 14:00 Pulse 101 08/31/16 11:13 Resp 20 08/31/16 11:13 BP 125/70 08/30/16 21:00 Pulse Ox 98 08/30/16 14:00 Intake & Output 08/30/16 08/31/16 08/31/16 18:59 06:59 18:59 Intake Total 800 Balance 800 Intake: Oral 800 Other: # Voids 3 # Bowel Movements 1 Stool Characteristics Soft Formed Active Medications: Current Medications Acetaminophen (Tylenol) 650 mg PO Q4HR PRN PRN Reason: Pain (Mild) Stop: 10/23/16 16:09 Last Admin: 08/30/16 09:17 Dose: 650 mg Al Hydrox/Mg Hydrox/Simethicone (Maalox) 30 ml PO Q4HR PRN PRN Reason: GI DISTRESS Stop: 10/23/16 16:09 Benztropine Mesylate (Cogentin) 1 mg PO DAILY JOURDAN Stop: 10/24/16 08:59 Last Admin: 08/31/16 08:13 Dose: 1 mg Clonazepam (Klonopin) 2 mg PO BID JOURDAN PRN Reason: Protocol Stop: 10/24/16 08:59 Last Admin: 08/31/16 08:12 Dose: 2 mg Divalproex Sodium (Depakote Dr) 500 mg PO BID JOURDAN PRN Reason: Protocol Stop: 10/24/16 08:59 Last Admin: 08/31/16 08:12 Dose: 500 mg Docusate Sodium (Colace) 100 mg PO DAILY JOURDAN Stop: 10/24/16 08:59 Last Admin: 08/31/16 08:12 Dose: 100 mg Insulin Aspart (Novolog Insulin Sliding Scale) 0 units SUBQ BIDAC JOURDAN PRN Reason: Protocol Stop: 10/24/16 07:29 Last Admin: 08/31/16 06:40 Dose: Not Given Insulin Detemir (Levemir Insulin) 23 units SUBQ BID JOURDAN PRN Reason: Protocol Stop: 10/24/16 08:59 Last Admin: 08/31/16 09:48 Dose: 23 unit Lisinopril (Zestril) 2.5 mg PO HS JOURDAN Stop: 10/23/16 20:59 Last Admin: 08/30/16 21:00 Dose: 2.5 mg Lorazepam (Ativan) 1 mg PO Q4HR PRN; Protocol PRN Reason: Anxiety Stop: 09/23/16 16:09 Last Admin: 08/30/16 14:50 Dose: 1 mg Lorazepam (Ativan) 1 mg PO Q6HR JOURDAN PRN Reason: Protocol Stop: 10/24/16 00:00 Last Admin: 08/31/16 12:51 Dose: 1 mg Multivitamins/Vitamin C (Theragran) 1 tab PO DAILY JOURDAN Stop: 10/24/16 08:59 Last Admin: 08/31/16 08:12 Dose: 1 tab Quetiapine Fumarate (Seroquel) 50 mg PO BID JOURDAN PRN Reason: Protocol Stop: 10/29/16 08:59 Last Admin: 08/31/16 08:13 Dose: 50 mg Quetiapine Fumarate (Seroquel) 100 mg PO HS JOURDAN PRN Reason: Protocol Stop: 10/29/16 20:59 Last Admin: 08/30/16 22:50 Dose: 100 mg Sertraline HCl (Zoloft) 50 mg PO DAILY JOURDAN PRN Reason: Protocol Stop: 10/24/16 08:59 Last Admin: 08/31/16 08:12 Dose: 50 mg Zolpidem Tartrate (Ambien) 5 mg PO HS PRN PRN Reason: Insomnia Stop: 10/23/16 16:09 Last Admin: 08/30/16 21:01 Dose: 5 mg General: Alert, Cooperative, No acute distress HEENT: Atraumatic, PERRLA, EOMI Neck: Supple, JVD Cardiovascular: Regular rate, Normal S1, Normal S2 Lungs: Clear to auscultation Abdomen: Bowel sounds, Soft Assessment/Plan - Assessment Assessment: DIABETES INSULIN REQUIRING. HYPERTENSION. HYPOTHYRODISM. CKD3. DJD. PSYCH DISORDER. HYPERLIPEDEMIA. - Plan Plan: MONITOR GLUCOSE AND VITALS INSULIN THERAPY PSYCH MEDS PSYCH FOLLOW UP. GENERAL NURSING CARE MEDICATION MANAGEMENT. SYMPTOMS CONTROL CONTINUE CURRENT CARE DISCUSSED WITH STAFF. Nutritional Asmnt/Malnutr-PDOC - Dietary Evaluation Malnutrition Findings (Please click <Entered> for more info): Nutritional Asmnt/Malnutrition Start: 08/25/16 14: 17 Text: Status: Active Freq: Document 08/25/16 14:17 GSUN (Rec: 08/25/16 14:30 [email or web address]) Nutritional Asmnt/Malnutrition Patient General Information Nutritional Screening High Risk Screening Diagnosis ER: paranoid schizophrenia, renal insufficiency Pertinent Medical Hx/Surgical Hx ER: HTN, chronic renal disease , hypothyroidism, hyperlipidemia, paranoid schizophrenia, anxiety, insomnia, major depression, DM2 Subjective Information 56 year old female from SNF. Upon entering pt's room, pt asked RD to leave, unable to interview. Mild fat wasting to legs noted. Spoke to RN Lazara, RN stated pt has very good appetite, eats whatever she wants, does not follow a DM diet, no difficulties chewing/ swallowing noted. RD discussed [id number] for pt with RN. Current Diet Order/ Nutrition Support [id number] Pertinent Medications Maalox, Colace, Novolog, Levemir, Theragran Pertinent Labs 08/24: sodium 131L, BUN 29H, creaitnine 1.7H, glucose 352H, A1c 7.3H, triglycerides 185H Nutritional Hx/Data Height 1.65 m Height (Calculated Centimeters) 165.1 Current Weight (lbs) 63.957 kg Weight (Calculated Kilograms) 64.0 Weight (Calculated Grams) 21430.5 [place] Body Weight 125 Weight Status Approriate GI Symptoms Skin Integrity/Comment: Paul 20. Skin intact. Estimated Nutritional Goals BEE in Kcals: Using Current wt Calories/Kcals/Kg CBW 64kg Kcals Calculated 1600-1920kcal (25-30kcal/kg) Protein: Using Current wt Protein g/kg: CBW Protein Calculated 38-1g (0.6-1g/kg, renal) Fluid: ml Per MD (hx. renal) Nutritional Problem 1. Problem Problem Altered nutrition related laboratory values related to Etiology DM aeb Signs/Symptoms: A1c 7.3, glucose 352 on adm Intervention/Recommendation Comments 1. Recommend [id number] to promote glycemic control. Discussed with MANAN Haile. 2. Monitor sodium level, recommend low sodium restriction to aid renal function if/once sodium level normalize. Expected Outcomes/Goals Expected Outcomes/Goals 1. PO intake to meet at least 75% of estimated nutritional needs.
--- NOTE | 2016-09-01 04:13 | Progress Notes ---
DATE: 08/31/2016 SUBJECTIVE: Chart reviewed and the patient interviewed. Also, discussed the patient's condition with the staff and reviewed records and labs. The patient continued to be easily agitated and she is still in angry and in irritable mood. The patient also is still resisting care and she is still fighting with peers and staff. She is also going around unit yelling and screaming. Also, according to staff, the patient did not sleep, ____had just few hours last night. She is rather____ intrusive to others and disruptive to the ____ and to the unit. The patient is disheveled and the thought processes are disorganized and the patient is unable to carry on conversation. She is also easily agitated. ASSESSMENT: The patient is still psychotic and agitated. TREATMENT PLAN: Yesterday, I stopped Abilify and started the patient on Seroquel. We will continue adjusting the dose. Also, Depakote level will be done later on today. Also, we will continue to work on her poor impulse control and her agitation and we will continue to follow up closely. JOB# [id number]
[2016-09-01] MEDS: INSULIN ASPART SLIDING SCALE 100 UNITS/ML UNIT SUBQ SCH ×2 (06:52→17:16)
[2016-09-01] MEDS: Multivitamin Tab PO SCH (09:00)
[2016-09-01] MEDS: Benztropine 1 MG TAB PO SCH (09:01)
[2016-09-01] MEDS: Insulin Detemir 100 units/mL 10mL Vial SUBQ SCH ×2 (09:06→17:17)
--- NOTE | 2016-09-02 | Progress Notes ---
DATE: 09/01/2016 SUBJECTIVE: Chart reviewed and the patient interviewed. Also discussed the patient's condition with the staff and reviewed records and labs. The patient is still manicy and hyperverbal and hyper-talkative. The patient also is sexually inappropriate and she was trying to hug me and hold my hands and grapping me while I was trying to talk to her. The patient also is preoccupied with her discharge, but at the same time. She is still manicy and she still has difficulty with her mood. Also, her speech is still pressured. The patient also is intrusive to others. LABORATORY DATA: The patient's Depakote blood level came back to be 58.7 which is within therapeutic level, but still with her manic behavior it can be increased. TREATMENT PLAN: We will continue monitoring her behavior and her condition closely. Also, we will increase Depakote to 500 mg in the morning and 1000 mg at bedtime and also we will increase Seroquel to 100 mg twice a day and 200 mg at bedtime and we will continue to work on her irritability and her agitation and her manic and inappropriate behavior. Also, director case management is working with the patient's in regard to her possibility of getting her home versus if she is going to go to live ____ place if the family will not be able to take care of her. JOB# [id number]
[2016-09-02] MEDS: INSULIN ASPART SLIDING SCALE 100 UNITS/ML UNIT SUBQ SCH ×2 (06:36→16:59)
[2016-09-02] MEDS: Benztropine 1 MG TAB PO SCH (08:31)
[2016-09-02] MEDS: Multivitamin Tab PO SCH (08:32)
[2016-09-02] MEDS: Insulin Detemir 100 units/mL 10mL Vial SUBQ SCH ×2 (09:35→17:18)
--- NOTE | 2016-09-03 02:01 | Progress Notes ---
DATE: 09/02/2016 Case was discussed with staff of the patient, reviewed records. Covering for Dr. Guardado. This is the only case to me as I have seen her for a few days, covering for Dr. Guardado. The patient continues to be very intrusive, irritable, argumentative, and continues to need redirection, unpredictable, and impulsive. Dr. Guardado increased Depakote 2000 mg at bedtime and Seroquel now is increased to 100 mg twice a day and 200 mg at bedtime with no side effects. She is also on Zoloft 50 mg a day and Klonopin 2 mg twice a day with no side effects, no sedation, no nausea, and no extrapyramidal symptoms. I will continue to work with the patient in group therapy, milieu therapy, and adjust medications as needed. JOB# [id number]
[2016-09-03] MEDS: Benztropine 1 MG TAB PO SCH (08:57)
[2016-09-03] MEDS: Insulin Detemir 100 units/mL 10mL Vial SUBQ SCH ×2 (08:58→16:56)
[2016-09-03] MEDS: Multivitamin Tab PO SCH (08:58)
[2016-09-03] MEDS ORDERED: Haloperidol Lactate 5 mg/mL 1mL Vial IM ONE (11:12)
[2016-09-03] MEDS ORDERED: Haloperidol Lactate 5 mg/mL 1mL Vial ONE (11:16)
[2016-09-03] MEDS: INSULIN ASPART SLIDING SCALE 100 UNITS/ML UNIT SUBQ SCH (16:56)
--- NOTE | 2016-09-04 04:40 | Progress Notes ---
DATE: 09/03/[address] Guardado. Case was discussed with staff of the patient, reviewed records. The patient was in the observation room. She was yelling and screaming, continues to be hard to redirect, easily agitated, had to be given emergency medications. She is unpredictable, impulsive, and Dr. Guardado increased her dose recently and with no side effects, no sedation, no nausea, and no extrapyramidal symptoms. So, we will continue to work with the patient in group therapy, milieu therapy, and adjust the medication as needed. JOB# [id number]
[2016-09-04] MEDS: INSULIN ASPART SLIDING SCALE 100 UNITS/ML UNIT SUBQ SCH ×2 (06:43→17:16)
[2016-09-04] MEDS: Insulin Detemir 100 units/mL 10mL Vial SUBQ SCH ×2 (09:04→17:15)
[2016-09-04] MEDS: Benztropine 1 MG TAB PO SCH (09:04)
[2016-09-04] MEDS: Multivitamin Tab PO SCH (09:04)
--- NOTE | 2016-09-05 03:53 | Progress Notes ---
DATE: 09/04/2016 Case was discussed with staff of the patient. The patient continues to be extremely agitated, irritable, loud, yelling and screaming, needing emergency medication. She continues to be unpredictable, impulsive, very poor insight. Dr. Guardado already has her on 1000 mg of Depakote at bedtime and Seroquel 100 mg twice a day and 200 mg at bedtime and she is on Zoloft 50 mg a day. I will be increasing her Seroquel dose during the day to 3 times a day to help decrease her agitation and irritability. So far, no side effects with the medication, no sedation, no nausea, no extrapyramidal symptoms. We will continue to work with the patient in group therapy, milieu therapy, adjust the medication as needed. JOB# [id number]
[2016-09-05] MEDS: INSULIN ASPART SLIDING SCALE 100 UNITS/ML UNIT SUBQ SCH ×2 (07:01→17:21)
[2016-09-05] MEDS: Multivitamin Tab PO SCH (09:19)
[2016-09-05] MEDS: Benztropine 1 MG TAB PO SCH (09:19)
[2016-09-05] MEDS: Insulin Detemir 100 units/mL 10mL Vial SUBQ SCH ×2 (09:35→17:21)
--- NOTE | 2016-09-05 14:45 | Internal Medicine Prog Note ---
Internal Medicine Subjective - Subjective Patient seen and examined:: with staff, chart reviewed Patient is:: awake, verbal, interactive Per staff patient is:: no adverse event, confused Internal Medicine Objective - Results Result Diagrams: 08/24/16 11:03 08/24/16 11:03 Recent Labs: Laboratory Last Values WBC 7.7 Th/cmm (4.8-10.8) 08/24/16 11:03 RBC 3.87 Mil/cmm (3.80-5.10) 08/24/16 11:03 Hgb 12.4 gm/dL (11.7-15.5) 08/24/16 11:03 Hct 35.3 % (35.0-45.0) 08/24/16 11:03 MCV 91.3 fl (81-100) 08/24/16 11:03 MCH 32.0 pg (27.0-31.0) H 08/24/16 11:03 MCHC Differential 35.0 pg (28.0-36.0) 08/24/16 11:03 RDW 11.8 % (11.5-20.0) 08/24/16 11:03 Plt Count 242 Th/cmm (150-400) 08/24/16 11:03 MPV 7.9 fl 08/24/16 11:03 Neutrophils % 68.5 % (40.0-80.0) 08/24/16 11:03 Lymphocytes % 24.4 % (20.0-50.0) 08/24/16 11:03 Monocytes % 5.8 % (2.0-10.0) 08/24/16 11:03 Eosinophils % 0.8 % (0.0-5.0) 08/24/16 11:03 Basophils % 0.5 % (0.0-2.0) 08/24/16 11:03 Sodium 131 mEq/L (136-145) L 08/24/16 11:03 Potassium 4.1 mEq/L (3.5-5.1) 08/24/16 11:03 Chloride 103 mEq/L (98-107) 08/24/16 11:03 Carbon Dioxide 24.0 mEq/L (21.0-31.0) 08/24/16 11:03 Anion Gap 8.1 (7.0-16.0) 08/24/16 11:03 BUN 29 mg/dL (7-25) H 08/24/16 11:03 Creatinine 1.7 mg/dL (0.6-1.2) H 08/24/16 11:03 Est GFR ( Amer) 39.7 ml/min (>90) 08/24/16 11:03 Est GFR (Non-Af Amer) 32.8 ml/min 08/24/16 11:03 BUN/Creatinine Ratio 17.1 08/24/16 11:03 Glucose 352 mg/dL (70-105) H 08/24/16 11:03 POC Glucose 120 MG/DL (70 - 105) H 09/05/16 06:51 Hemoglobin A1c % 7.3 % (4.0-6.0) H 08/24/16 11:03 Calcium 8.9 mg/dL (8.6-10.3) 08/24/16 11:03 Triglycerides 185 mg/dL (<150) H 08/24/16 11:03 Cholesterol 169 mg/dL (<200) 08/24/16 11:03 LDL Cholesterol Direct 97 mg/dL (75-193) 08/24/16 11:03 HDL Cholesterol 49 mg/dL (23-92) 08/24/16 11:03 TSH 0.66 uIU/ml (0.34-5.60) 08/24/16 11:03 Valproic Acid 59.7 ug/mL (50.0-100.0) 09/05/16 08:40 RPR NONREACTIVE (NONREACTIVE) 08/24/16 11:03 Hepatitis A IgM Ab Negative (Negative) 08/24/16 11:03 Hep Bs Antigen Negative (Negative) 08/24/16 11:03 Hep B Core IgM Ab Negative (Negative) 08/24/16 11:03 Hepatitis C Antibody <0.1 s/co ratio (0.0-0.9) 08/24/16 11:03 - Physical Exam Vitals and I&O: Vital Signs Temp 98.2 F 09/05/16 06:43 Pulse 94 09/05/16 06:43 Resp 20 09/05/16 06:43 BP 135/83 09/05/16 06:43 Pulse Ox 99 09/05/16 06:43 Intake & Output 09/04/16 09/05/16 09/05/16 18:59 06:59 18:59 Intake Total 900 120 Balance 900 120 Intake: Oral 900 120 Other: # Voids 3 2 # Bowel Movements 1 0 Active Medications: Current Medications Acetaminophen (Tylenol) 650 mg PO Q4HR PRN PRN Reason: Pain (Mild) Stop: 10/23/16 16:09 Last Admin: 08/30/16 09:17 Dose: 650 mg Al Hydrox/Mg Hydrox/Simethicone (Maalox) 30 ml PO Q4HR PRN PRN Reason: GI DISTRESS Stop: 10/23/16 16:09 Benztropine Mesylate (Cogentin) 1 mg PO DAILY JOURDAN Stop: 10/24/16 08:59 Last Admin: 09/05/16 09:19 Dose: 1 mg Clonazepam (Klonopin) 2 mg PO BID JOURDAN PRN Reason: Protocol Stop: 10/24/16 08:59 Last Admin: 09/05/16 09:19 Dose: 2 mg Divalproex Sodium (Depakote Dr) 1,000 mg PO HS JOURDAN PRN Reason: Protocol Stop: 10/31/16 20:59 Last Admin: 09/04/16 20:38 Dose: 1,000 mg Docusate Sodium (Colace) 100 mg PO DAILY JOURDAN Stop: 10/24/16 08:59 Last Admin: 09/05/16 09:19 Dose: 100 mg Insulin Aspart (Novolog Insulin Sliding Scale) 0 units SUBQ BIDAC JOURDAN PRN Reason: Protocol Stop: 10/24/16 07:29 Last Admin: 09/05/16 07:01 Dose: Not Given Insulin Detemir (Levemir Insulin) 23 units SUBQ BID JOURDAN PRN Reason: Protocol Stop: 10/24/16 08:59 Last Admin: 09/05/16 09:35 Dose: 23 unit Lisinopril (Zestril) 2.5 mg PO HS JOURDAN Stop: 10/23/16 20:59 Last Admin: 09/04/16 20:40 Dose: 2.5 mg Lorazepam (Ativan) 1 mg PO Q4HR PRN; Protocol PRN Reason: Anxiety Stop: 09/23/16 16:09 Last Admin: 08/30/16 14:50 Dose: 1 mg Lorazepam (Ativan) 1 mg PO Q6HR JOURDAN PRN Reason: Protocol Stop: 10/24/16 00:00 Last Admin: 09/05/16 05:00 Dose: 1 mg Multivitamins/Vitamin C (Theragran) 1 tab PO DAILY JOURDAN Stop: 10/24/16 08:59 Last Admin: 09/05/16 09:19 Dose: 1 tab Quetiapine Fumarate (Seroquel) 200 mg PO HS JOURDAN PRN Reason: Protocol Stop: 10/29/16 20:59 Last Admin: 09/04/16 20:39 Dose: 200 mg Quetiapine Fumarate (Seroquel) 100 mg PO TID JOURDAN PRN Reason: Protocol Stop: 11/03/16 13:59 Last Admin: 09/05/16 09:19 Dose: 100 mg Sertraline HCl (Zoloft) 50 mg PO DAILY JOURDAN PRN Reason: Protocol Stop: 10/24/16 08:59 Last Admin: 09/05/16 09:19 Dose: 50 mg Zolpidem Tartrate (Ambien) 5 mg PO HS PRN PRN Reason: Insomnia Stop: 10/23/16 16:09 Last Admin: 09/03/16 20:18 Dose: 5 mg General: demented HEENT: NC/AT, PERRLA Neck: Supple, No JVD Lungs: CTAB Cardiovascular: RRR, Normal S1, Normal S2 Abdomen: soft non-tender, globular, positive bowel sound Extremities: excoriation Neurological: no change Internal Medicine Assmt/Plan - Assessment Assessment: DIABETES INSULIN REQUIRING. HYPERTENSION. HYPOTHYRODISM. CKD3. DJD. PSYCH DISORDER. HYPERLIPEDEMIA. - Plan Plan: MONITOR GLUCOSE AND VITALS INSULIN THERAPY PSYCH MEDS PSYCH FOLLOW UP. GENERAL NURSING CARE MEDICATION MANAGEMENT. SYMPTOMS CONTROL CONTINUE CURRENT CARE DISCUSSED WITH STAFF. - Plan Plan: see above Nutritional Asmnt/Malnutr-PDOC - Dietary Evaluation Malnutrition Findings (Please click <Entered> for more info): Nutritional Asmnt/Malnutrition Start: 08/25/16 14: 17 Text: Status: Active Freq: Document 08/25/16 14:17 GSCINDA (Rec: 08/25/16 14:30 [email or web address]) Nutritional Asmnt/Malnutrition Patient General Information Nutritional Screening High Risk Screening Diagnosis ER: paranoid schizophrenia, renal insufficiency Pertinent Medical Hx/Surgical Hx ER: HTN, chronic renal disease , hypothyroidism, hyperlipidemia, paranoid schizophrenia, anxiety, insomnia, major depression, DM2 Subjective Information 56 year old female from SNF. Upon entering pt's room, pt asked RD to leave, unable to interview. Mild fat wasting to legs noted. Spoke to MANAN Haile, RN stated pt has very good appetite, eats whatever she wants, does not follow a DM diet, no difficulties chewing/ swallowing noted. RD discussed [id number] for pt with RN. Current Diet Order/ Nutrition Support [id number] Pertinent Medications Maalox, Colace, Novolog, Levemir, Theragran Pertinent Labs 08/24: sodium 131L, BUN 29H, creaitnine 1.7H, glucose 352H, A1c 7.3H, triglycerides 185H Nutritional Hx/Data Height 1.65 m Height (Calculated Centimeters) 165.1 Current Weight (lbs) 63.957 kg Weight (Calculated Kilograms) 64.0 Weight (Calculated Grams) 25721.5 [place] Body Weight 125 Weight Status Approriate GI Symptoms Skin Integrity/Comment: Paul 20. Skin intact. Estimated Nutritional Goals BEE in Kcals: Using Current wt Calories/Kcals/Kg CBW 64kg Kcals Calculated 1600-1920kcal (25-30kcal/kg) Protein: Using Current wt Protein g/kg: CBW Protein Calculated 38-1g (0.6-1g/kg, renal) Fluid: ml Per MD (hx. renal) Nutritional Problem 1. Problem Problem Altered nutrition related laboratory values related to Etiology DM aeb Signs/Symptoms: A1c 7.3, glucose 352 on adm Intervention/Recommendation Comments 1. Recommend [id number] to promote glycemic control. Discussed with MANAN Haile. 2. Monitor sodium level, recommend low sodium restriction to aid renal function if/once sodium level normalize. Expected Outcomes/Goals Expected Outcomes/Goals 1. PO intake to meet at least 75% of estimated nutritional needs.
--- NOTE | 2016-09-06 02:44 | Progress Notes ---
DATE: 09/05/2016 Case was discussed with staff of the patient. The patient continues to be easily agitated, continues to be unpredictable and impulsive; however, did not need emergency medication since yesterday. She is sleeping better and eating better. She is not yelling and screaming as much as she was before, needing redirection. She is compliant with the medication with no side effects, no sedation, no nausea, no extrapyramidal symptoms and we will continue to work. I did increase her Seroquel yesterday to 100 mg 3 times a day and she is already on 200 mg at bedtime and we will continue to work with the patient in group therapy, milieu therapy and adjust medication as needed. JOB# [id number]
[2016-09-06] MEDS: INSULIN ASPART SLIDING SCALE 100 UNITS/ML UNIT SUBQ SCH ×2 (06:59→17:09)
[2016-09-06] MEDS: Multivitamin Tab PO SCH (09:44)
[2016-09-06] MEDS: Benztropine 1 MG TAB PO SCH (09:44)
[2016-09-06] MEDS: Insulin Detemir 100 units/mL 10mL Vial SUBQ SCH ×2 (10:32→17:09)
--- NOTE | 2016-09-06 15:23 | Internal Medicine Prog Note ---
Internal Medicine Subjective - Subjective Patient seen and examined:: with staff, chart reviewed Patient is:: awake, verbal, interactive Per staff patient is:: no adverse event, confused Internal Medicine Objective - Results Result Diagrams: 08/24/16 11:03 08/24/16 11:03 Recent Labs: Laboratory Last Values WBC 7.7 Th/cmm (4.8-10.8) 08/24/16 11:03 RBC 3.87 Mil/cmm (3.80-5.10) 08/24/16 11:03 Hgb 12.4 gm/dL (11.7-15.5) 08/24/16 11:03 Hct 35.3 % (35.0-45.0) 08/24/16 11:03 MCV 91.3 fl (81-100) 08/24/16 11:03 MCH 32.0 pg (27.0-31.0) H 08/24/16 11:03 MCHC Differential 35.0 pg (28.0-36.0) 08/24/16 11:03 RDW 11.8 % (11.5-20.0) 08/24/16 11:03 Plt Count 242 Th/cmm (150-400) 08/24/16 11:03 MPV 7.9 fl 08/24/16 11:03 Neutrophils % 68.5 % (40.0-80.0) 08/24/16 11:03 Lymphocytes % 24.4 % (20.0-50.0) 08/24/16 11:03 Monocytes % 5.8 % (2.0-10.0) 08/24/16 11:03 Eosinophils % 0.8 % (0.0-5.0) 08/24/16 11:03 Basophils % 0.5 % (0.0-2.0) 08/24/16 11:03 Sodium 131 mEq/L (136-145) L 08/24/16 11:03 Potassium 4.1 mEq/L (3.5-5.1) 08/24/16 11:03 Chloride 103 mEq/L (98-107) 08/24/16 11:03 Carbon Dioxide 24.0 mEq/L (21.0-31.0) 08/24/16 11:03 Anion Gap 8.1 (7.0-16.0) 08/24/16 11:03 BUN 29 mg/dL (7-25) H 08/24/16 11:03 Creatinine 1.7 mg/dL (0.6-1.2) H 08/24/16 11:03 Est GFR ( Amer) 39.7 ml/min (>90) 08/24/16 11:03 Est GFR (Non-Af Amer) 32.8 ml/min 08/24/16 11:03 BUN/Creatinine Ratio 17.1 08/24/16 11:03 Glucose 352 mg/dL (70-105) H 08/24/16 11:03 POC Glucose 133 MG/DL (70 - 105) H 09/06/16 06:51 Hemoglobin A1c % 7.3 % (4.0-6.0) H 08/24/16 11:03 Calcium 8.9 mg/dL (8.6-10.3) 08/24/16 11:03 Triglycerides 185 mg/dL (<150) H 08/24/16 11:03 Cholesterol 169 mg/dL (<200) 08/24/16 11:03 LDL Cholesterol Direct 97 mg/dL (75-193) 08/24/16 11:03 HDL Cholesterol 49 mg/dL (23-92) 08/24/16 11:03 TSH 0.66 uIU/ml (0.34-5.60) 08/24/16 11:03 Valproic Acid 59.7 ug/mL (50.0-100.0) 09/05/16 08:40 RPR NONREACTIVE (NONREACTIVE) 08/24/16 11:03 Hepatitis A IgM Ab Negative (Negative) 08/24/16 11:03 Hep Bs Antigen Negative (Negative) 08/24/16 11:03 Hep B Core IgM Ab Negative (Negative) 08/24/16 11:03 Hepatitis C Antibody <0.1 s/co ratio (0.0-0.9) 08/24/16 11:03 - Physical Exam Vitals and I&O: Vital Signs Temp 97.7 F 09/06/16 06:48 Pulse 78 09/06/16 06:48 Resp 20 09/06/16 06:48 BP 136/86 09/06/16 06:48 Pulse Ox 98 09/06/16 06:48 Intake & Output 09/05/16 09/06/16 09/06/16 18:59 06:59 18:59 Intake Total 1800 480 Balance 1800 480 Intake: Oral 1800 480 Other: # Voids 5 3 # Bowel Movements 1 0 Active Medications: Current Medications Acetaminophen (Tylenol) 650 mg PO Q4HR PRN PRN Reason: Pain (Mild) Stop: 10/23/16 16:09 Last Admin: 08/30/16 09:17 Dose: 650 mg Al Hydrox/Mg Hydrox/Simethicone (Maalox) 30 ml PO Q4HR PRN PRN Reason: GI DISTRESS Stop: 10/23/16 16:09 Benztropine Mesylate (Cogentin) 1 mg PO DAILY JOURDAN Stop: 10/24/16 08:59 Last Admin: 09/06/16 09:44 Dose: 1 mg Clonazepam (Klonopin) 2 mg PO BID JOURDAN PRN Reason: Protocol Stop: 10/24/16 08:59 Last Admin: 09/06/16 09:43 Dose: 2 mg Divalproex Sodium (Depakote Dr) 1,000 mg PO HS JOURDAN PRN Reason: Protocol Stop: 10/31/16 20:59 Last Admin: 09/05/16 20:37 Dose: 1,000 mg Docusate Sodium (Colace) 100 mg PO DAILY JOURDAN Stop: 10/24/16 08:59 Last Admin: 09/06/16 09:43 Dose: 100 mg Insulin Aspart (Novolog Insulin Sliding Scale) 0 units SUBQ BIDAC JOURDAN PRN Reason: Protocol Stop: 10/24/16 07:29 Last Admin: 09/06/16 06:59 Dose: Not Given Insulin Detemir (Levemir Insulin) 23 units SUBQ BID JOURDAN PRN Reason: Protocol Stop: 10/24/16 08:59 Last Admin: 09/06/16 10:32 Dose: 23 unit Lisinopril (Zestril) 2.5 mg PO HS JOURDAN Stop: 10/23/16 20:59 Last Admin: 09/05/16 20:38 Dose: 2.5 mg Lorazepam (Ativan) 1 mg PO Q4HR PRN; Protocol PRN Reason: Anxiety Stop: 09/23/16 16:09 Last Admin: 08/30/16 14:50 Dose: 1 mg Lorazepam (Ativan) 1 mg PO Q6HR JOURDAN PRN Reason: Protocol Stop: 10/24/16 00:00 Last Admin: 09/06/16 12:44 Dose: 1 mg Multivitamins/Vitamin C (Theragran) 1 tab PO DAILY JOURDAN Stop: 10/24/16 08:59 Last Admin: 09/06/16 09:44 Dose: 1 tab Quetiapine Fumarate (Seroquel) 200 mg PO HS JOURDAN PRN Reason: Protocol Stop: 10/29/16 20:59 Last Admin: 09/05/16 20:38 Dose: 200 mg Quetiapine Fumarate (Seroquel) 100 mg PO TID JOURDAN PRN Reason: Protocol Stop: 11/03/16 13:59 Last Admin: 09/06/16 09:44 Dose: 100 mg Sertraline HCl (Zoloft) 50 mg PO DAILY JOURDAN PRN Reason: Protocol Stop: 10/24/16 08:59 Last Admin: 09/06/16 09:44 Dose: 50 mg Zolpidem Tartrate (Ambien) 5 mg PO HS PRN PRN Reason: Insomnia Stop: 10/23/16 16:09 Last Admin: 09/05/16 20:38 Dose: 5 mg General: demented HEENT: NC/AT, PERRLA Neck: Supple, No JVD Lungs: CTAB Cardiovascular: RRR, Normal S1, Normal S2 Abdomen: soft non-tender, globular, positive bowel sound Extremities: excoriation Neurological: no change Internal Medicine Assmt/Plan - Assessment Assessment: DIABETES INSULIN REQUIRING. HYPERTENSION. HYPOTHYRODISM. CKD3. DJD. PSYCH DISORDER. HYPERLIPEDEMIA. - Plan Plan: MONITOR GLUCOSE AND VITALS INSULIN THERAPY PSYCH MEDS PSYCH FOLLOW UP. GENERAL NURSING CARE MEDICATION MANAGEMENT. SYMPTOMS CONTROL CONTINUE CURRENT CARE DISCUSSED WITH STAFF. - Plan Plan: see above Nutritional Asmnt/Malnutr-PDOC - Dietary Evaluation Malnutrition Findings (Please click <Entered> for more info): Nutritional Asmnt/Malnutrition Start: 08/25/16 14: 17 Text: Status: Complete Freq: Document 08/25/16 14:17 GSCINDA (Rec: 08/25/16 14:30 GSCINDA [email or web address]) Nutritional Asmnt/Malnutrition Patient General Information Nutritional Screening High Risk Screening Diagnosis ER: paranoid schizophrenia, renal insufficiency Pertinent Medical Hx/Surgical Hx ER: HTN, chronic renal disease , hypothyroidism, hyperlipidemia, paranoid schizophrenia, anxiety, insomnia, major depression, DM2 Subjective Information 56 year old female from SNF. Upon entering pt's room, pt asked RD to leave, unable to interview. Mild fat wasting to legs noted. Spoke to MANAN Haile, RN stated pt has very good appetite, eats whatever she wants, does not follow a DM diet, no difficulties chewing/ swallowing noted. RD discussed [id number] for pt with RN. Current Diet Order/ Nutrition Support [id number] Pertinent Medications Maalox, Colace, Novolog, Levemir, Theragran Pertinent Labs 08/24: sodium 131L, BUN 29H, creaitnine 1.7H, glucose 352H, A1c 7.3H, triglycerides 185H Nutritional Hx/Data Height 1.65 m Height (Calculated Centimeters) 165.1 Current Weight (lbs) 63.957 kg Weight (Calculated Kilograms) 64.0 Weight (Calculated Grams) 12398.5 [place] Body Weight 125 Weight Status Approriate GI Symptoms Skin Integrity/Comment: Paul 20. Skin intact. Estimated Nutritional Goals BEE in Kcals: Using Current wt Calories/Kcals/Kg CBW 64kg Kcals Calculated 1600-1920kcal (25-30kcal/kg) Protein: Using Current wt Protein g/kg: CBW Protein Calculated 38-1g (0.6-1g/kg, renal) Fluid: ml Per MD (hx. renal) Nutritional Problem 1. Problem Problem Altered nutrition related laboratory values related to Etiology DM aeb Signs/Symptoms: A1c 7.3, glucose 352 on adm Intervention/Recommendation Comments 1. Recommend [id number] to promote glycemic control. Discussed with MANAN Haile. 2. Monitor sodium level, recommend low sodium restriction to aid renal function if/once sodium level normalize. Expected Outcomes/Goals Expected Outcomes/Goals 1. PO intake to meet at least 75% of estimated nutritional needs.
--- NOTE | 2016-09-07 01:43 | Progress Notes ---
DATE: 09/06/2016 SUBJECTIVE: Chart reviewed and the patient interviewed. Also discussed the patient's condition with the staff and reviewed records and labs. The patient is still manicy and she is still easily agitated and in irritable mood. The patient also is still hyperverbal and she is still intrusive to others and needs lot of redirections. She also gets agitated at times. Also, personal hygiene is still poor. During interview, the patient's thought processes are circumstantial and tangential with flight of ideas. She also is easily agitated. ASSESSMENT: The patient is still manicy and is still agitated. TREATMENT PLAN: Depakote blood level that was done yesterday came back to be 59.7 which is within therapeutic level. The patient still needs close monitoring of her condition. Also, caseworker intake is trying to place the patient and Wendy Hester refused to take her and waiting to hear from [facility]. At the same time, we will continue working on her irritability and manic behavior and adjusting psychotropic medications. JOB# [id number]
[2016-09-07] MEDS: INSULIN ASPART SLIDING SCALE 100 UNITS/ML UNIT SUBQ SCH ×2 (06:48→17:06)
[2016-09-07] MEDS: Multivitamin Tab PO SCH (08:43)
[2016-09-07] MEDS: Insulin Detemir 100 units/mL 10mL Vial SUBQ SCH ×2 (08:44→17:00)
[2016-09-07] MEDS: Benztropine 1 MG TAB PO SCH (09:43)
--- NOTE | 2016-09-07 19:53 | Internal Medicine Prog Note ---
Internal Medicine Subjective - Subjective Patient seen and examined:: with staff, chart reviewed Patient is:: awake, verbal Per staff patient is:: no adverse event, confused Internal Medicine Objective - Results Result Diagrams: 08/24/16 11:03 08/24/16 11:03 Recent Labs: Laboratory Last Values WBC 7.7 Th/cmm (4.8-10.8) 08/24/16 11:03 RBC 3.87 Mil/cmm (3.80-5.10) 08/24/16 11:03 Hgb 12.4 gm/dL (11.7-15.5) 08/24/16 11:03 Hct 35.3 % (35.0-45.0) 08/24/16 11:03 MCV 91.3 fl (81-100) 08/24/16 11:03 MCH 32.0 pg (27.0-31.0) H 08/24/16 11:03 MCHC Differential 35.0 pg (28.0-36.0) 08/24/16 11:03 RDW 11.8 % (11.5-20.0) 08/24/16 11:03 Plt Count 242 Th/cmm (150-400) 08/24/16 11:03 MPV 7.9 fl 08/24/16 11:03 Neutrophils % 68.5 % (40.0-80.0) 08/24/16 11:03 Lymphocytes % 24.4 % (20.0-50.0) 08/24/16 11:03 Monocytes % 5.8 % (2.0-10.0) 08/24/16 11:03 Eosinophils % 0.8 % (0.0-5.0) 08/24/16 11:03 Basophils % 0.5 % (0.0-2.0) 08/24/16 11:03 Sodium 131 mEq/L (136-145) L 08/24/16 11:03 Potassium 4.1 mEq/L (3.5-5.1) 08/24/16 11:03 Chloride 103 mEq/L (98-107) 08/24/16 11:03 Carbon Dioxide 24.0 mEq/L (21.0-31.0) 08/24/16 11:03 Anion Gap 8.1 (7.0-16.0) 08/24/16 11:03 BUN 29 mg/dL (7-25) H 08/24/16 11:03 Creatinine 1.7 mg/dL (0.6-1.2) H 08/24/16 11:03 Est GFR ( Amer) 39.7 ml/min (>90) 08/24/16 11:03 Est GFR (Non-Af Amer) 32.8 ml/min 08/24/16 11:03 BUN/Creatinine Ratio 17.1 08/24/16 11:03 Glucose 352 mg/dL (70-105) H 08/24/16 11:03 POC Glucose 80 MG/DL (70 - 105) 09/07/16 16:40 Hemoglobin A1c % 7.3 % (4.0-6.0) H 08/24/16 11:03 Calcium 8.9 mg/dL (8.6-10.3) 08/24/16 11:03 Triglycerides 185 mg/dL (<150) H 08/24/16 11:03 Cholesterol 169 mg/dL (<200) 08/24/16 11:03 LDL Cholesterol Direct 97 mg/dL (75-193) 08/24/16 11:03 HDL Cholesterol 49 mg/dL (23-92) 08/24/16 11:03 TSH 0.66 uIU/ml (0.34-5.60) 08/24/16 11:03 Valproic Acid 59.7 ug/mL (50.0-100.0) 09/05/16 08:40 RPR NONREACTIVE (NONREACTIVE) 08/24/16 11:03 Hepatitis A IgM Ab Negative (Negative) 08/24/16 11:03 Hep Bs Antigen Negative (Negative) 08/24/16 11:03 Hep B Core IgM Ab Negative (Negative) 08/24/16 11:03 Hepatitis C Antibody <0.1 s/co ratio (0.0-0.9) 08/24/16 11:03 - Physical Exam Vitals and I&O: Vital Signs Temp 97.6 F 09/07/16 14:00 Pulse 88 09/07/16 14:00 Resp 20 09/07/16 14:00 BP 97/68 09/07/16 14:00 Pulse Ox 96 09/07/16 14:00 Intake & Output 09/07/16 09/07/16 09/08/16 06:59 18:59 06:59 Intake Total 900 Balance 900 Intake: Oral 900 Other: # Voids 3 # Bowel Movements 1 Active Medications: Current Medications Acetaminophen (Tylenol) 650 mg PO Q4HR PRN PRN Reason: Pain (Mild) Stop: 10/23/16 16:09 Last Admin: 08/30/16 09:17 Dose: 650 mg Al Hydrox/Mg Hydrox/Simethicone (Maalox) 30 ml PO Q4HR PRN PRN Reason: GI DISTRESS Stop: 10/23/16 16:09 Benztropine Mesylate (Cogentin) 1 mg PO DAILY JOURDAN Stop: 10/24/16 08:59 Last Admin: 09/07/16 09:43 Dose: 1 mg Clonazepam (Klonopin) 2 mg PO BID JOURDAN PRN Reason: Protocol Stop: 10/24/16 08:59 Last Admin: 09/07/16 17:10 Dose: 2 mg Divalproex Sodium (Depakote Dr) 1,000 mg PO HS JOURDAN PRN Reason: Protocol Stop: 10/31/16 20:59 Last Admin: 09/06/16 20:51 Dose: 1,000 mg Docusate Sodium (Colace) 100 mg PO DAILY JOURDAN Stop: 10/24/16 08:59 Last Admin: 09/07/16 08:43 Dose: 100 mg Insulin Aspart (Novolog Insulin Sliding Scale) 0 units SUBQ BIDAC JOURDAN PRN Reason: Protocol Stop: 10/24/16 07:29 Last Admin: 09/07/16 17:06 Dose: Not Given Insulin Detemir (Levemir Insulin) 23 units SUBQ BID JOURDAN PRN Reason: Protocol Stop: 10/24/16 08:59 Last Admin: 09/07/16 08:44 Dose: 23 unit Lisinopril (Zestril) 2.5 mg PO HS JOURDAN Stop: 10/23/16 20:59 Last Admin: 09/06/16 20:51 Dose: 2.5 mg Lorazepam (Ativan) 1 mg PO Q4HR PRN; Protocol PRN Reason: Anxiety Stop: 09/23/16 16:09 Last Admin: 08/30/16 14:50 Dose: 1 mg Lorazepam (Ativan) 1 mg PO Q6HR JOURDAN PRN Reason: Protocol Stop: 10/24/16 00:00 Last Admin: 09/07/16 17:10 Dose: 1 mg Multivitamins/Vitamin C (Theragran) 1 tab PO DAILY JOURDAN Stop: 10/24/16 08:59 Last Admin: 09/07/16 08:43 Dose: 1 tab Quetiapine Fumarate (Seroquel) 200 mg PO HS JOURDAN PRN Reason: Protocol Stop: 10/29/16 20:59 Last Admin: 09/06/16 20:51 Dose: 200 mg Quetiapine Fumarate (Seroquel) 100 mg PO TID JOURDAN PRN Reason: Protocol Stop: 11/03/16 13:59 Last Admin: 09/07/16 14:46 Dose: 100 mg Sertraline HCl (Zoloft) 50 mg PO DAILY JOURDAN PRN Reason: Protocol Stop: 10/24/16 08:59 Last Admin: 09/07/16 08:43 Dose: 50 mg Zolpidem Tartrate (Ambien) 5 mg PO HS PRN PRN Reason: Insomnia Stop: 10/23/16 16:09 Last Admin: 09/05/16 20:38 Dose: 5 mg General: demented HEENT: NC/AT, PERRLA Neck: Supple, No JVD Lungs: CTAB Cardiovascular: RRR, Normal S1, Normal S2 Abdomen: soft non-tender, globular, non-distended, positive bowel sound Extremities: clear Neurological: no change, no disorganized Internal Medicine Assmt/Plan - Assessment Assessment: DIABETES INSULIN REQUIRING. HYPERTENSION. HYPOTHYRODISM. CKD3. DJD. PSYCH DISORDER. HYPERLIPEDEMIA. - Plan Plan: MONITOR GLUCOSE AND VITALS INSULIN THERAPY PSYCH MEDS PSYCH FOLLOW UP. GENERAL NURSING CARE MEDICATION MANAGEMENT. SYMPTOMS CONTROL CONTINUE CURRENT CARE DISCUSSED WITH STAFF. - Plan Plan: see above Nutritional Asmnt/Malnutr-PDOC - Dietary Evaluation Malnutrition Findings (Please click <Entered> for more info): Nutritional Asmnt/Malnutrition Start: 08/25/16 14: 17 Text: Status: Complete Freq: Document 08/25/16 14:17 GSUN (Rec: 08/25/16 14:30 [id number]) Nutritional Asmnt/Malnutrition Patient General Information Nutritional Screening High Risk Screening Diagnosis ER: paranoid schizophrenia, renal insufficiency Pertinent Medical Hx/Surgical Hx ER: HTN, chronic renal disease , hypothyroidism, hyperlipidemia, paranoid schizophrenia, anxiety, insomnia, major depression, DM2 Subjective Information 56 year old female from SNF. Upon entering pt's room, pt asked RD to leave, unable to interview. Mild fat wasting to legs noted. Spoke to MANAN Haile, RN stated pt has very good appetite, eats whatever she wants, does not follow a DM diet, no difficulties chewing/ swallowing noted. RD discussed [id number] for pt with RN. Current Diet Order/ Nutrition Support [id number] Pertinent Medications Maalox, Colace, Novolog, Levemir, Theragran Pertinent Labs 08/24: sodium 131L, BUN 29H, creaitnine 1.7H, glucose 352H, A1c 7.3H, triglycerides 185H Nutritional Hx/Data Height 1.65 m Height (Calculated Centimeters) 165.1 Current Weight (lbs) 63.957 kg Weight (Calculated Kilograms) 64.0 Weight (Calculated Grams) 55694.5 [place] Body Weight 125 Weight Status Approriate GI Symptoms Skin Integrity/Comment: Paul 20. Skin intact. Estimated Nutritional Goals BEE in Kcals: Using Current wt Calories/Kcals/Kg CBW 64kg Kcals Calculated 1600-1920kcal (25-30kcal/kg) Protein: Using Current wt Protein g/kg: CBW Protein Calculated 38-1g (0.6-1g/kg, renal) Fluid: ml Per MD (hx. renal) Nutritional Problem 1. Problem Problem Altered nutrition related laboratory values related to Etiology DM aeb Signs/Symptoms: A1c 7.3, glucose 352 on adm Intervention/Recommendation Comments 1. Recommend [id number] to promote glycemic control. Discussed with MANAN Haile. 2. Monitor sodium level, recommend low sodium restriction to aid renal function if/once sodium level normalize. Expected Outcomes/Goals Expected Outcomes/Goals 1. PO intake to meet at least 75% of estimated nutritional needs.
--- NOTE | 2016-09-07 21:28 | Progress Notes ---
DATE: 09/07/2016 SUBJECTIVE: Chart reviewed and the patient interviewed. Also, discussed the patient's condition with the staff and reviewed records and labs. The patient is still agitated and is still manicky with pressured speech. The patient also is still intrusive to other and she is still having severe mood swings. The patient also is still hyperverbal and speech is pressured. Also, she needs ____ instructions in regards to hygiene. Otherwise, the patient continued to comply with taking her medications with no side effects of medications. ASSESSMENT: The patient is still manicky, but seems to be less than before. TREATMENT PLAN: We will continue monitoring her behavior and her condition closely. Also, family caseworker is still working on placement issue and so far no luck in accepting the patient anywhere and still waiting for placement. JOB# [id number]
[2016-09-08] MEDS: INSULIN ASPART SLIDING SCALE 100 UNITS/ML UNIT SUBQ SCH ×2 (06:42→16:43)
[2016-09-08] MEDS: Benztropine 1 MG TAB PO SCH (09:04)
[2016-09-08] MEDS: Multivitamin Tab PO SCH (09:05)
[2016-09-08] MEDS: Insulin Detemir 100 units/mL 10mL Vial SUBQ SCH ×2 (09:07→16:42)
--- NOTE | 2016-09-08 15:32 | Internal Medicine Prog Note ---
Internal Medicine Subjective - Subjective Patient seen and examined:: with staff, chart reviewed Patient is:: awake, verbal, interactive Per staff patient is:: no adverse event, confused Internal Medicine Objective - Results Result Diagrams: 08/24/16 11:03 08/24/16 11:03 Recent Labs: Laboratory Last Values WBC 7.7 Th/cmm (4.8-10.8) 08/24/16 11:03 RBC 3.87 Mil/cmm (3.80-5.10) 08/24/16 11:03 Hgb 12.4 gm/dL (11.7-15.5) 08/24/16 11:03 Hct 35.3 % (35.0-45.0) 08/24/16 11:03 MCV 91.3 fl (81-100) 08/24/16 11:03 MCH 32.0 pg (27.0-31.0) H 08/24/16 11:03 MCHC Differential 35.0 pg (28.0-36.0) 08/24/16 11:03 RDW 11.8 % (11.5-20.0) 08/24/16 11:03 Plt Count 242 Th/cmm (150-400) 08/24/16 11:03 MPV 7.9 fl 08/24/16 11:03 Neutrophils % 68.5 % (40.0-80.0) 08/24/16 11:03 Lymphocytes % 24.4 % (20.0-50.0) 08/24/16 11:03 Monocytes % 5.8 % (2.0-10.0) 08/24/16 11:03 Eosinophils % 0.8 % (0.0-5.0) 08/24/16 11:03 Basophils % 0.5 % (0.0-2.0) 08/24/16 11:03 Sodium 131 mEq/L (136-145) L 08/24/16 11:03 Potassium 4.1 mEq/L (3.5-5.1) 08/24/16 11:03 Chloride 103 mEq/L (98-107) 08/24/16 11:03 Carbon Dioxide 24.0 mEq/L (21.0-31.0) 08/24/16 11:03 Anion Gap 8.1 (7.0-16.0) 08/24/16 11:03 BUN 29 mg/dL (7-25) H 08/24/16 11:03 Creatinine 1.7 mg/dL (0.6-1.2) H 08/24/16 11:03 Est GFR ( Amer) 39.7 ml/min (>90) 08/24/16 11:03 Est GFR (Non-Af Amer) 32.8 ml/min 08/24/16 11:03 BUN/Creatinine Ratio 17.1 08/24/16 11:03 Glucose 352 mg/dL (70-105) H 08/24/16 11:03 POC Glucose 136 MG/DL (70 - 105) H 09/08/16 05:58 Hemoglobin A1c % 7.3 % (4.0-6.0) H 08/24/16 11:03 Calcium 8.9 mg/dL (8.6-10.3) 08/24/16 11:03 Triglycerides 185 mg/dL (<150) H 08/24/16 11:03 Cholesterol 169 mg/dL (<200) 08/24/16 11:03 LDL Cholesterol Direct 97 mg/dL (75-193) 08/24/16 11:03 HDL Cholesterol 49 mg/dL (23-92) 08/24/16 11:03 TSH 0.66 uIU/ml (0.34-5.60) 08/24/16 11:03 Valproic Acid 59.7 ug/mL (50.0-100.0) 09/05/16 08:40 RPR NONREACTIVE (NONREACTIVE) 08/24/16 11:03 Hepatitis A IgM Ab Negative (Negative) 08/24/16 11:03 Hep Bs Antigen Negative (Negative) 08/24/16 11:03 Hep B Core IgM Ab Negative (Negative) 08/24/16 11:03 Hepatitis C Antibody <0.1 s/co ratio (0.0-0.9) 08/24/16 11:03 - Physical Exam Vitals and I&O: Vital Signs Temp 98 F 09/08/16 06:31 Pulse 77 09/08/16 06:31 Resp 20 09/08/16 06:31 BP 114/69 09/08/16 06:31 Pulse Ox 99 09/08/16 06:31 Intake & Output 09/07/16 09/08/16 09/08/16 18:59 06:59 18:59 Intake Total 900 120 Balance 900 120 Intake: Oral 900 120 Other: # Voids 3 3 # Bowel Movements 1 Active Medications: Current Medications Acetaminophen (Tylenol) 650 mg PO Q4HR PRN PRN Reason: Pain (Mild) Stop: 10/23/16 16:09 Last Admin: 08/30/16 09:17 Dose: 650 mg Al Hydrox/Mg Hydrox/Simethicone (Maalox) 30 ml PO Q4HR PRN PRN Reason: GI DISTRESS Stop: 10/23/16 16:09 Benztropine Mesylate (Cogentin) 1 mg PO DAILY JOURDAN Stop: 10/24/16 08:59 Last Admin: 09/08/16 09:04 Dose: 1 mg Clonazepam (Klonopin) 2 mg PO BID JOURDAN PRN Reason: Protocol Stop: 10/24/16 08:59 Last Admin: 09/08/16 09:04 Dose: 2 mg Divalproex Sodium (Depakote Dr) 1,000 mg PO HS JOURDAN PRN Reason: Protocol Stop: 10/31/16 20:59 Last Admin: 09/07/16 20:47 Dose: 1,000 mg Docusate Sodium (Colace) 100 mg PO DAILY JOURDAN Stop: 10/24/16 08:59 Last Admin: 09/08/16 09:05 Dose: 100 mg Insulin Aspart (Novolog Insulin Sliding Scale) 0 units SUBQ BIDAC JOURDAN PRN Reason: Protocol Stop: 10/24/16 07:29 Last Admin: 09/08/16 06:42 Dose: Not Given Insulin Detemir (Levemir Insulin) 23 units SUBQ BID JOURDAN PRN Reason: Protocol Stop: 10/24/16 08:59 Last Admin: 09/08/16 09:07 Dose: Not Given Lisinopril (Zestril) 2.5 mg PO HS JOURDAN Stop: 10/23/16 20:59 Last Admin: 09/07/16 20:45 Dose: 2.5 mg Lorazepam (Ativan) 1 mg PO Q6HR JOURDAN PRN Reason: Protocol Stop: 10/24/16 00:00 Last Admin: 09/08/16 13:00 Dose: 1 mg Multivitamins/Vitamin C (Theragran) 1 tab PO DAILY JOURDAN Stop: 10/24/16 08:59 Last Admin: 09/08/16 09:05 Dose: 1 tab Quetiapine Fumarate (Seroquel) 200 mg PO HS JOURDAN PRN Reason: Protocol Stop: 10/29/16 20:59 Last Admin: 09/07/16 20:47 Dose: 200 mg Quetiapine Fumarate (Seroquel) 100 mg PO TID JOURDAN PRN Reason: Protocol Stop: 11/03/16 13:59 Last Admin: 09/08/16 13:28 Dose: 100 mg Sertraline HCl (Zoloft) 50 mg PO DAILY JOURDAN PRN Reason: Protocol Stop: 10/24/16 08:59 Last Admin: 09/08/16 09:05 Dose: 50 mg Zolpidem Tartrate (Ambien) 5 mg PO HS PRN PRN Reason: Insomnia Stop: 10/23/16 16:09 Last Admin: 09/05/16 20:38 Dose: 5 mg General: demented HEENT: NC/AT, PERRLA Neck: Supple, No JVD Lungs: CTAB Cardiovascular: RRR, Normal S1, Normal S2 Abdomen: soft non-tender, globular, positive bowel sound Extremities: excoriation Neurological: no change Internal Medicine Assmt/Plan - Assessment Assessment: DIABETES INSULIN REQUIRING. HYPERTENSION. HYPOTHYRODISM. CKD3. DJD. PSYCH DISORDER. HYPERLIPEDEMIA. - Plan Plan: MONITOR GLUCOSE AND VITALS INSULIN THERAPY PSYCH MEDS PSYCH FOLLOW UP. GENERAL NURSING CARE MEDICATION MANAGEMENT. SYMPTOMS CONTROL CONTINUE CURRENT CARE DISCUSSED WITH STAFF. - Plan Plan: see above Nutritional Asmnt/Malnutr-PDOC - Dietary Evaluation Malnutrition Findings (Please click <Entered> for more info): Nutritional Asmnt/Malnutrition Start: 08/25/16 14: 17 Text: Status: Complete Freq: Document 08/25/16 14:17 GSUN (Rec: 08/25/16 14:30 [email or web address]) Nutritional Asmnt/Malnutrition Patient General Information Nutritional Screening High Risk Screening Diagnosis ER: paranoid schizophrenia, renal insufficiency Pertinent Medical Hx/Surgical Hx ER: HTN, chronic renal disease , hypothyroidism, hyperlipidemia, paranoid schizophrenia, anxiety, insomnia, major depression, DM2 Subjective Information 56 year old female from SNF. Upon entering pt's room, pt asked RD to leave, unable to interview. Mild fat wasting to legs noted. Spoke to MANAN Haile RN stated pt has very good appetite, eats whatever she wants, does not follow a DM diet, no difficulties chewing/ swallowing noted. RD discussed [id number] for pt with RN. Current Diet Order/ Nutrition Support [id number] Pertinent Medications Maalox, Colace, Novolog, Levemir, Theragran Pertinent Labs 08/24: sodium 131L, BUN 29H, creaitnine 1.7H, glucose 352H, A1c 7.3H, triglycerides 185H Nutritional Hx/Data Height 1.65 m Height (Calculated Centimeters) 165.1 Current Weight (lbs) 63.957 kg Weight (Calculated Kilograms) 64.0 Weight (Calculated Grams) 74809.5 [place] Body Weight 125 Weight Status Approriate GI Symptoms Skin Integrity/Comment: Paul 20. Skin intact. Estimated Nutritional Goals BEE in Kcals: Using Current wt Calories/Kcals/Kg CBW 64kg Kcals Calculated 1600-1920kcal (25-30kcal/kg) Protein: Using Current wt Protein g/kg: CBW Protein Calculated 38-1g (0.6-1g/kg, renal) Fluid: ml Per MD (hx. renal) Nutritional Problem 1. Problem Problem Altered nutrition related laboratory values related to Etiology DM aeb Signs/Symptoms: A1c 7.3, glucose 352 on adm Intervention/Recommendation Comments 1. Recommend [id number] to promote glycemic control. Discussed with MANAN Haile. 2. Monitor sodium level, recommend low sodium restriction to aid renal function if/once sodium level normalize. Expected Outcomes/Goals Expected Outcomes/Goals 1. PO intake to meet at least 75% of estimated nutritional needs.
--- NOTE | 2016-09-09 01:14 | Progress Notes ---
DATE: 09/08/2016 SUBJECTIVE: Chart was reviewed and the patient was interviewed. Also discussed the patient's condition with the staff and reviewed records and labs. The patient is still manicky and restless, and she is still pacing up and down in the unit at times. The patient also is still hyperverbal. Easier to redirect her and easier to follow directions. She also has been compliant with taking her medications . During interview, thought processes are circumstantial and tangential, but no flight of ideas. The patient . ASSESSMENT: The patient is still manicky. TREATMENT PLAN: We will continue monitoring her behavior and her condition. Also, she is paranoid and still unable to find a place for the patient, and we will continue to work on placement issue and on discharge plans. Also, we will continue adjusting psychotropic medications. JOB# [id number]
[2016-09-09] MEDS: Benztropine 1 MG TAB PO SCH (08:31)
[2016-09-09] MEDS: Multivitamin Tab PO SCH (08:31)
[2016-09-09] MEDS: INSULIN ASPART SLIDING SCALE 100 UNITS/ML UNIT SUBQ SCH ×2 (08:34→17:22)
[2016-09-09] MEDS: Insulin Detemir 100 units/mL 10mL Vial SUBQ SCH ×2 (09:00→16:09)
[2016-09-09] MEDS: Magnesium Hydroxide (MOM) 30 mL UDC PO PRN (20:04)
--- NOTE | 2016-09-09 21:46 | Internal Medicine Prog Note ---
Internal Medicine Subjective - Subjective Patient seen and examined:: with staff, chart reviewed Patient is:: awake, verbal, interactive Per staff patient is:: no adverse event, no episodes of fall, confused Internal Medicine Objective - Results Result Diagrams: 08/24/16 11:03 08/24/16 11:03 Recent Labs: Laboratory Last Values WBC 7.7 Th/cmm (4.8-10.8) 08/24/16 11:03 RBC 3.87 Mil/cmm (3.80-5.10) 08/24/16 11:03 Hgb 12.4 gm/dL (11.7-15.5) 08/24/16 11:03 Hct 35.3 % (35.0-45.0) 08/24/16 11:03 MCV 91.3 fl (81-100) 08/24/16 11:03 MCH 32.0 pg (27.0-31.0) H 08/24/16 11:03 MCHC Differential 35.0 pg (28.0-36.0) 08/24/16 11:03 RDW 11.8 % (11.5-20.0) 08/24/16 11:03 Plt Count 242 Th/cmm (150-400) 08/24/16 11:03 MPV 7.9 fl 08/24/16 11:03 Neutrophils % 68.5 % (40.0-80.0) 08/24/16 11:03 Lymphocytes % 24.4 % (20.0-50.0) 08/24/16 11:03 Monocytes % 5.8 % (2.0-10.0) 08/24/16 11:03 Eosinophils % 0.8 % (0.0-5.0) 08/24/16 11:03 Basophils % 0.5 % (0.0-2.0) 08/24/16 11:03 Sodium 131 mEq/L (136-145) L 08/24/16 11:03 Potassium 4.1 mEq/L (3.5-5.1) 08/24/16 11:03 Chloride 103 mEq/L (98-107) 08/24/16 11:03 Carbon Dioxide 24.0 mEq/L (21.0-31.0) 08/24/16 11:03 Anion Gap 8.1 (7.0-16.0) 08/24/16 11:03 BUN 29 mg/dL (7-25) H 08/24/16 11:03 Creatinine 1.7 mg/dL (0.6-1.2) H 08/24/16 11:03 Est GFR ( Amer) 39.7 ml/min (>90) 08/24/16 11:03 Est GFR (Non-Af Amer) 32.8 ml/min 08/24/16 11:03 BUN/Creatinine Ratio 17.1 08/24/16 11:03 Glucose 352 mg/dL (70-105) H 08/24/16 11:03 POC Glucose 234 MG/DL (70 - 105) H 09/09/16 16:09 Hemoglobin A1c % 7.3 % (4.0-6.0) H 08/24/16 11:03 Calcium 8.9 mg/dL (8.6-10.3) 08/24/16 11:03 Triglycerides 185 mg/dL (<150) H 08/24/16 11:03 Cholesterol 169 mg/dL (<200) 08/24/16 11:03 LDL Cholesterol Direct 97 mg/dL (75-193) 08/24/16 11:03 HDL Cholesterol 49 mg/dL (23-92) 08/24/16 11:03 TSH 0.66 uIU/ml (0.34-5.60) 08/24/16 11:03 Valproic Acid 59.7 ug/mL (50.0-100.0) 09/05/16 08:40 RPR NONREACTIVE (NONREACTIVE) 08/24/16 11:03 Hepatitis A IgM Ab Negative (Negative) 08/24/16 11:03 Hep Bs Antigen Negative (Negative) 08/24/16 11:03 Hep B Core IgM Ab Negative (Negative) 08/24/16 11:03 Hepatitis C Antibody <0.1 s/co ratio (0.0-0.9) 08/24/16 11:03 - Physical Exam Vitals and I&O: Vital Signs Temp 98.2 F 09/09/16 19:57 Pulse 98 09/09/16 20:05 Resp 18 09/09/16 20:00 BP 107/48 09/09/16 20:05 Pulse Ox 99 09/09/16 19:57 Intake & Output 09/09/16 09/09/1609/10/17 06:59 18:59 06:59 Intake Total 1000 480 Balance 1000 480 Intake: Oral 1000 480 Other: # Voids 4 2 # Bowel Movements 1 Active Medications: Current Medications Acetaminophen (Tylenol) 650 mg PO Q4HR PRN PRN Reason: Pain (Mild) Stop: 10/23/16 16:09 Last Admin: 08/30/16 09:17 Dose: 650 mg Al Hydrox/Mg Hydrox/Simethicone (Maalox) 30 ml PO Q4HR PRN PRN Reason: GI DISTRESS Stop: 10/23/16 16:09 Benztropine Mesylate (Cogentin) 1 mg PO DAILY JOURDAN Stop: 10/24/16 08:59 Last Admin: 09/09/16 08:31 Dose: 1 mg Clonazepam (Klonopin) 2 mg PO BID JOURDAN PRN Reason: Protocol Stop: 10/24/16 08:59 Last Admin: 09/09/16 16:07 Dose: 2 mg Divalproex Sodium (Depakote Dr) 1,000 mg PO HS JOURDAN PRN Reason: Protocol Stop: 10/31/16 20:59 Last Admin: 09/09/16 20:05 Dose: 1,000 mg Docusate Sodium (Colace) 100 mg PO DAILY JOURDAN Stop: 10/24/16 08:59 Last Admin: 09/09/16 08:30 Dose: 100 mg Insulin Aspart (Novolog Insulin Sliding Scale) 0 units SUBQ BIDAC JOURDAN PRN Reason: Protocol Stop: 10/24/16 07:29 Last Admin: 09/09/16 17:22 Dose: 3 units Insulin Detemir (Levemir Insulin) 23 units SUBQ BID JOURDAN PRN Reason: Protocol Stop: 10/24/16 08:59 Last Admin: 09/09/16 16:09 Dose: 23 unit Lisinopril (Zestril) 2.5 mg PO HS JOURDAN Stop: 10/23/16 20:59 Last Admin: 09/09/16 20:05 Dose: 2.5 mg Lorazepam (Ativan) 1 mg PO Q6HR JOURDAN PRN Reason: Protocol Stop: 10/24/16 00:00 Last Admin: 09/09/16 17:22 Dose: 1 mg Magnesium Hydroxide (Milk Of Magnesia) 30 ml PO HS PRN PRN Reason: Constipation Stop: 11/08/16 18:32 Last Admin: 09/09/16 20:04 Dose: 30 ml Multivitamins/Vitamin C (Theragran) 1 tab PO DAILY JOURDAN Stop: 10/24/16 08:59 Last Admin: 09/09/16 08:31 Dose: 1 tab Quetiapine Fumarate (Seroquel) 200 mg PO HS JOURDAN PRN Reason: Protocol Stop: 10/29/16 20:59 Last Admin: 09/09/16 20:04 Dose: 200 mg Quetiapine Fumarate (Seroquel) 100 mg PO TID JOURDAN PRN Reason: Protocol Stop: 11/03/16 13:59 Last Admin: 09/09/16 20:05 Dose: 100 mg Sertraline HCl (Zoloft) 50 mg PO DAILY JOURDAN PRN Reason: Protocol Stop: 10/24/16 08:59 Last Admin: 09/09/16 08:33 Dose: 50 mg Zolpidem Tartrate (Ambien) 5 mg PO HS PRN PRN Reason: Insomnia Stop: 10/23/16 16:09 Last Admin: 09/05/16 20:38 Dose: 5 mg General: demented HEENT: NC/AT, PERRLA Neck: Supple, No JVD Lungs: CTAB Cardiovascular: RRR, Normal S1 Abdomen: soft non-tender, globular, positive bowel sound Extremities: excoriation Neurological: no change Internal Medicine Assmt/Plan - Assessment Assessment: DIABETES INSULIN REQUIRING. HYPERTENSION. HYPOTHYRODISM. CKD3. DJD. PSYCH DISORDER. HYPERLIPEDEMIA. - Plan Plan: MONITOR GLUCOSE AND VITALS INSULIN THERAPY PSYCH MEDS PSYCH FOLLOW UP. GENERAL NURSING CARE MEDICATION MANAGEMENT. SYMPTOMS CONTROL CONTINUE CURRENT CARE DISCUSSED WITH STAFF. - Plan Plan: see above Nutritional Asmnt/Malnutr-PDOC - Dietary Evaluation Malnutrition Findings (Please click <Entered> for more info): Nutritional Asmnt/Malnutrition Start: 08/25/16 14: 17 Text: Status: Complete Freq: Document 08/25/16 14:17 GSUN (Rec: 08/25/16 14:30 [email or web address]) Nutritional Asmnt/Malnutrition Patient General Information Nutritional Screening High Risk Screening Diagnosis ER: paranoid schizophrenia, renal insufficiency Pertinent Medical Hx/Surgical Hx ER: HTN, chronic renal disease , hypothyroidism, hyperlipidemia, paranoid schizophrenia, anxiety, insomnia, major depression, DM2 Subjective Information 56 year old female from SNF. Upon entering pt's room, pt asked RD to leave, unable to interview. Mild fat wasting to legs noted. Spoke to MANAN Haile, RN stated pt has very good appetite, eats whatever she wants, does not follow a DM diet, no difficulties chewing/ swallowing noted. RD discussed [id number] for pt with RN. Current Diet Order/ Nutrition Support [id number] Pertinent Medications Maalox, Colace, Novolog, Levemir, Theragran Pertinent Labs 08/24: sodium 131L, BUN 29H, creaitnine 1.7H, glucose 352H, A1c 7.3H, triglycerides 185H Nutritional Hx/Data Height 1.65 m Height (Calculated Centimeters) 165.1 Current Weight (lbs) 63.957 kg Weight (Calculated Kilograms) 64.0 Weight (Calculated Grams) 70352.5 [place] Body Weight 125 Weight Status Approriate GI Symptoms Skin Integrity/Comment: Paul 20. Skin intact. Estimated Nutritional Goals BEE in Kcals: Using Current wt Calories/Kcals/Kg CBW 64kg Kcals Calculated 1600-1920kcal (25-30kcal/kg) Protein: Using Current wt Protein g/kg: CBW Protein Calculated 38-1g (0.6-1g/kg, renal) Fluid: ml Per MD (hx. renal) Nutritional Problem 1. Problem Problem Altered nutrition related laboratory values related to Etiology DM aeb Signs/Symptoms: A1c 7.3, glucose 352 on adm Intervention/Recommendation Comments 1. Recommend [id number] to promote glycemic control. Discussed with MANAN Haile. 2. Monitor sodium level, recommend low sodium restriction to aid renal function if/once sodium level normalize. Expected Outcomes/Goals Expected Outcomes/Goals 1. PO intake to meet at least 75% of estimated nutritional needs.
--- NOTE | 2016-09-10 06:23 | Progress Notes ---
DATE: 09/09/[address] Guardado. The patient was seen and evaluated. The patient's chart was reviewed. The patient is 56-year-old female who was initially brought in here after presenting disorganized. Nursing station is reporting that the patient has been at times isolative, intrusive, and hyperverbal, although med compliant with minimum participating in regards to emotions. On [id number] evaluation, the patient is dismissive, irritable, not able to engage in linear conversation to cope and discuss safety plan. MENTAL EXAMINATION: Withdrawn, minimizing, guarded, safety. ASSESSMENT AND PLAN: The patient is a 56-year-old female with a history of major depressive disorder with psychosis who presents still withdrawn, isolative, unable to formulate safe plan outside a structured environment. We will continue with primary psychiatrist's treatment plan and goals. She is currently on benzodiazepine and clonazepam 2 mg twice a day. She is not expressing any oversedated effects. She also wants quetiapine. We will continue monitoring the current symptoms to target the patient's disorganized thought process. JOB# [id number]
[2016-09-10] MEDS: INSULIN ASPART SLIDING SCALE 100 UNITS/ML UNIT SUBQ SCH ×2 (09:10→16:36)
[2016-09-10] MEDS: Benztropine 1 MG TAB PO SCH (09:18)
[2016-09-10] MEDS: Multivitamin Tab PO SCH (09:19)
[2016-09-10] MEDS: Insulin Detemir 100 units/mL 10mL Vial SUBQ SCH ×2 (09:30→16:41)
--- NOTE | 2016-09-10 21:19 | Internal Medicine Prog Note ---
Internal Medicine Subjective - Subjective Patient seen and examined:: with staff, chart reviewed Patient is:: interactive Per staff patient is:: no adverse event, confused Internal Medicine Objective - Results Result Diagrams: 08/24/16 11:03 08/24/16 11:03 Recent Labs: Laboratory Last Values WBC 7.7 Th/cmm (4.8-10.8) 08/24/16 11:03 RBC 3.87 Mil/cmm (3.80-5.10) 08/24/16 11:03 Hgb 12.4 gm/dL (11.7-15.5) 08/24/16 11:03 Hct 35.3 % (35.0-45.0) 08/24/16 11:03 MCV 91.3 fl (81-100) 08/24/16 11:03 MCH 32.0 pg (27.0-31.0) H 08/24/16 11:03 MCHC Differential 35.0 pg (28.0-36.0) 08/24/16 11:03 RDW 11.8 % (11.5-20.0) 08/24/16 11:03 Plt Count 242 Th/cmm (150-400) 08/24/16 11:03 MPV 7.9 fl 08/24/16 11:03 Neutrophils % 68.5 % (40.0-80.0) 08/24/16 11:03 Lymphocytes % 24.4 % (20.0-50.0) 08/24/16 11:03 Monocytes % 5.8 % (2.0-10.0) 08/24/16 11:03 Eosinophils % 0.8 % (0.0-5.0) 08/24/16 11:03 Basophils % 0.5 % (0.0-2.0) 08/24/16 11:03 Sodium 131 mEq/L (136-145) L 08/24/16 11:03 Potassium 4.1 mEq/L (3.5-5.1) 08/24/16 11:03 Chloride 103 mEq/L (98-107) 08/24/16 11:03 Carbon Dioxide 24.0 mEq/L (21.0-31.0) 08/24/16 11:03 Anion Gap 8.1 (7.0-16.0) 08/24/16 11:03 BUN 29 mg/dL (7-25) H 08/24/16 11:03 Creatinine 1.7 mg/dL (0.6-1.2) H 08/24/16 11:03 Est GFR ( Amer) 39.7 ml/min (>90) 08/24/16 11:03 Est GFR (Non-Af Amer) 32.8 ml/min 08/24/16 11:03 BUN/Creatinine Ratio 17.1 08/24/16 11:03 Glucose 352 mg/dL (70-105) H 08/24/16 11:03 POC Glucose 131 MG/DL (70 - 105) H 09/10/16 16:35 Hemoglobin A1c % 7.3 % (4.0-6.0) H 08/24/16 11:03 Calcium 8.9 mg/dL (8.6-10.3) 08/24/16 11:03 Triglycerides 185 mg/dL (<150) H 08/24/16 11:03 Cholesterol 169 mg/dL (<200) 08/24/16 11:03 LDL Cholesterol Direct 97 mg/dL (75-193) 08/24/16 11:03 HDL Cholesterol 49 mg/dL (23-92) 08/24/16 11:03 TSH 0.66 uIU/ml (0.34-5.60) 08/24/16 11:03 Valproic Acid 59.7 ug/mL (50.0-100.0) 09/05/16 08:40 RPR NONREACTIVE (NONREACTIVE) 08/24/16 11:03 Hepatitis A IgM Ab Negative (Negative) 08/24/16 11:03 Hep Bs Antigen Negative (Negative) 08/24/16 11:03 Hep B Core IgM Ab Negative (Negative) 08/24/16 11:03 Hepatitis C Antibody <0.1 s/co ratio (0.0-0.9) 08/24/16 11:03 - Physical Exam Vitals and I&O: Vital Signs Temp 98.2 F 09/10/16 20:00 Pulse 91 09/10/16 20:15 Resp 18 09/10/16 20:00 BP 100/66 09/10/16 20:15 Pulse Ox 98 09/10/16 20:00 Intake & Output 09/10/16 09/10/16 09/11/16 06:59 18:59 06:59 Intake Total 480 1000 480 Balance 480 1000 480 Intake: Oral 480 1000 480 Other: # Voids 2 4 1 # Bowel Movements 1 Active Medications: Current Medications Acetaminophen (Tylenol) 650 mg PO Q4HR PRN PRN Reason: Pain (Mild) Stop: 10/23/16 16:09 Last Admin: 09/10/16 12:34 Dose: 650 mg Al Hydrox/Mg Hydrox/Simethicone (Maalox) 30 ml PO Q4HR PRN PRN Reason: GI DISTRESS Stop: 10/23/16 16:09 Benztropine Mesylate (Cogentin) 1 mg PO DAILY JOURDAN Stop: 10/24/16 08:59 Last Admin: 09/10/16 09:18 Dose: 1 mg Clonazepam (Klonopin) 2 mg PO BID JOURDAN PRN Reason: Protocol Stop: 10/24/16 08:59 Last Admin: 09/10/16 16:42 Dose: 2 mg Divalproex Sodium (Depakote Dr) 1,000 mg PO HS JOURDAN PRN Reason: Protocol Stop: 10/31/16 20:59 Last Admin: 09/10/16 20:14 Dose: 1,000 mg Docusate Sodium (Colace) 100 mg PO DAILY JOURDAN Stop: 10/24/16 08:59 Last Admin: 09/10/16 09:20 Dose: 100 mg Insulin Aspart (Novolog Insulin Sliding Scale) 0 units SUBQ BIDAC JOURDAN PRN Reason: Protocol Stop: 10/24/16 07:29 Last Admin: 09/10/16 16:36 Dose: Not Given Insulin Detemir (Levemir Insulin) 23 units SUBQ BID JOURDAN PRN Reason: Protocol Stop: 10/24/16 08:59 Last Admin: 09/10/16 16:41 Dose: 23 unit Lisinopril (Zestril) 2.5 mg PO HS JOURDAN Stop: 10/23/16 20:59 Last Admin: 09/10/16 20:15 Dose: 2.5 mg Lorazepam (Ativan) 1 mg PO Q6HR JOURDAN PRN Reason: Protocol Stop: 10/24/16 00:00 Last Admin: 09/10/16 17:18 Dose: 1 mg Magnesium Hydroxide (Milk Of Magnesia) 30 ml PO HS PRN PRN Reason: Constipation Stop: 11/08/16 18:32 Last Admin: 09/09/16 20:04 Dose: 30 ml Multivitamins/Vitamin C (Theragran) 1 tab PO DAILY JOURDAN Stop: 10/24/16 08:59 Last Admin: 09/10/16 09:19 Dose: 1 tab Quetiapine Fumarate (Seroquel) 200 mg PO HS JOURDAN PRN Reason: Protocol Stop: 10/29/16 20:59 Last Admin: 09/10/16 20:14 Dose: 200 mg Quetiapine Fumarate (Seroquel) 100 mg PO TID JOURDAN PRN Reason: Protocol Stop: 11/03/16 13:59 Last Admin: 09/10/16 20:15 Dose: 100 mg Sertraline HCl (Zoloft) 50 mg PO DAILY JOURDAN PRN Reason: Protocol Stop: 10/24/16 08:59 Last Admin: 09/10/16 09:19 Dose: 50 mg Zolpidem Tartrate (Ambien) 5 mg PO HS PRN PRN Reason: Insomnia Stop: 10/23/16 16:09 Last Admin: 09/05/16 20:38 Dose: 5 mg General: demented HEENT: NC/AT, PERRLA Neck: Supple, No JVD Lungs: CTAB Cardiovascular: RRR, Normal S1 Abdomen: globular, positive bowel sound Internal Medicine Assmt/Plan - Assessment Assessment: DIABETES INSULIN REQUIRING. HYPERTENSION. HYPOTHYRODISM. CKD3. DJD. PSYCH DISORDER. HYPERLIPEDEMIA. - Plan Plan: MONITOR GLUCOSE AND VITALS INSULIN THERAPY PSYCH MEDS PSYCH FOLLOW UP. GENERAL NURSING CARE MEDICATION MANAGEMENT. SYMPTOMS CONTROL CONTINUE CURRENT CARE DISCUSSED WITH STAFF. - Plan Plan: see above Nutritional Asmnt/Malnutr-PDOC - Dietary Evaluation Malnutrition Findings (Please click <Entered> for more info): Nutritional Asmnt/Malnutrition Start: 08/25/16 14: 17 Text: Status: Complete Freq: Document 08/25/16 14:17 GSCINDA (Rec: 08/25/16 14:30 DILCIA [email or web address]) Nutritional Asmnt/Malnutrition Patient General Information Nutritional Screening High Risk Screening Diagnosis ER: paranoid schizophrenia, renal insufficiency Pertinent Medical Hx/Surgical Hx ER: HTN, chronic renal disease , hypothyroidism, hyperlipidemia, paranoid schizophrenia, anxiety, insomnia, major depression, DM2 Subjective Information 56 year old female from SNF. Upon entering pt's room, pt asked RD to leave, unable to interview. Mild fat wasting to legs noted. Spoke to MANAN Haile, RN stated pt has very good appetite, eats whatever she wants, does not follow a DM diet, no difficulties chewing/ swallowing noted. RD discussed [id number] for pt with RN. Current Diet Order/ Nutrition Support [id number] Pertinent Medications Maalox, Colace, Novolog, Levemir, Theragran Pertinent Labs 08/24: sodium 131L, BUN 29H, creaitnine 1.7H, glucose 352H, A1c 7.3H, triglycerides 185H Nutritional Hx/Data Height 1.65 m Height (Calculated Centimeters) 165.1 Current Weight (lbs) 63.957 kg Weight (Calculated Kilograms) 64.0 Weight (Calculated Grams) 06265.5 [place] Body Weight 125 Weight Status Approriate GI Symptoms Skin Integrity/Comment: Paul 20. Skin intact. Estimated Nutritional Goals BEE in Kcals: Using Current wt Calories/Kcals/Kg CBW 64kg Kcals Calculated 1600-1920kcal (25-30kcal/kg) Protein: Using Current wt Protein g/kg: CBW Protein Calculated 38-1g (0.6-1g/kg, renal) Fluid: ml Per MD (hx. renal) Nutritional Problem 1. Problem Problem Altered nutrition related laboratory values related to Etiology DM aeb Signs/Symptoms: A1c 7.3, glucose 352 on adm Intervention/Recommendation Comments 1. Recommend [id number] to promote glycemic control. Discussed with MANAN Haile. 2. Monitor sodium level, recommend low sodium restriction to aid renal function if/once sodium level normalize. Expected Outcomes/Goals Expected Outcomes/Goals 1. PO intake to meet at least 75% of estimated nutritional needs.
--- NOTE | 2016-09-10 22:44 | Progress Notes ---
DATE: 09/10/[address] Guardado. SUBJECTIVE: The patient was seen and evaluated. The patient's chart was reviewed. Overnight staff members reported that the patient continues to be easily irritable and agitated. Today on [id number] evaluation, the patient very guarded, minimizing. MENTAL STATUS EXAMINATION: Guarded, minimizing, withdrawn, unable to formulate a safe plan about her safety. ASSESSMENT AND PLAN: The patient is a 56-year-old female with a history of major depressive disorder with psychosis who still continues to present very withdrawn, agitated, unable to formulate safe plan. We will continue with primary psychiatrist's treatment plan and goals to target the patient's still depressive symptoms and residual psychotic thought process. [facility]# [id number]
[2016-09-11] MEDS: INSULIN ASPART SLIDING SCALE 100 UNITS/ML UNIT SUBQ SCH ×2 (06:45→16:48)
[2016-09-11] MEDS: Insulin Detemir 100 units/mL 10mL Vial SUBQ SCH ×2 (08:53→17:01)
[2016-09-11] MEDS: Multivitamin Tab PO SCH (08:54)
[2016-09-11] MEDS: Benztropine 1 MG TAB PO SCH (08:54)
--- NOTE | 2016-09-11 15:36 | Internal Medicine Prog Note ---
Internal Medicine Subjective - Subjective Patient seen and examined:: with staff, chart reviewed Patient is:: awake, verbal, interactive Per staff patient is:: no adverse event, eating well, confused Internal Medicine Objective - Results Result Diagrams: 08/24/16 11:03 08/24/16 11:03 Recent Labs: Laboratory Last Values WBC 7.7 Th/cmm (4.8-10.8) 08/24/16 11:03 RBC 3.87 Mil/cmm (3.80-5.10) 08/24/16 11:03 Hgb 12.4 gm/dL (11.7-15.5) 08/24/16 11:03 Hct 35.3 % (35.0-45.0) 08/24/16 11:03 MCV 91.3 fl (81-100) 08/24/16 11:03 MCH 32.0 pg (27.0-31.0) H 08/24/16 11:03 MCHC Differential 35.0 pg (28.0-36.0) 08/24/16 11:03 RDW 11.8 % (11.5-20.0) 08/24/16 11:03 Plt Count 242 Th/cmm (150-400) 08/24/16 11:03 MPV 7.9 fl 08/24/16 11:03 Neutrophils % 68.5 % (40.0-80.0) 08/24/16 11:03 Lymphocytes % 24.4 % (20.0-50.0) 08/24/16 11:03 Monocytes % 5.8 % (2.0-10.0) 08/24/16 11:03 Eosinophils % 0.8 % (0.0-5.0) 08/24/16 11:03 Basophils % 0.5 % (0.0-2.0) 08/24/16 11:03 Sodium 131 mEq/L (136-145) L 08/24/16 11:03 Potassium 4.1 mEq/L (3.5-5.1) 08/24/16 11:03 Chloride 103 mEq/L (98-107) 08/24/16 11:03 Carbon Dioxide 24.0 mEq/L (21.0-31.0) 08/24/16 11:03 Anion Gap 8.1 (7.0-16.0) 08/24/16 11:03 BUN 29 mg/dL (7-25) H 08/24/16 11:03 Creatinine 1.7 mg/dL (0.6-1.2) H 08/24/16 11:03 Est GFR ( Amer) 39.7 ml/min (>90) 08/24/16 11:03 Est GFR (Non-Af Amer) 32.8 ml/min 08/24/16 11:03 BUN/Creatinine Ratio 17.1 08/24/16 11:03 Glucose 352 mg/dL (70-105) H 08/24/16 11:03 POC Glucose 105 MG/DL (70 - 105) 09/11/16 05:57 Hemoglobin A1c % 7.3 % (4.0-6.0) H 08/24/16 11:03 Calcium 8.9 mg/dL (8.6-10.3) 08/24/16 11:03 Triglycerides 185 mg/dL (<150) H 08/24/16 11:03 Cholesterol 169 mg/dL (<200) 08/24/16 11:03 LDL Cholesterol Direct 97 mg/dL (75-193) 08/24/16 11:03 HDL Cholesterol 49 mg/dL (23-92) 08/24/16 11:03 TSH 0.66 uIU/ml (0.34-5.60) 08/24/16 11:03 Valproic Acid 59.7 ug/mL (50.0-100.0) 09/05/16 08:40 RPR NONREACTIVE (NONREACTIVE) 08/24/16 11:03 Hepatitis A IgM Ab Negative (Negative) 08/24/16 11:03 Hep Bs Antigen Negative (Negative) 08/24/16 11:03 Hep B Core IgM Ab Negative (Negative) 08/24/16 11:03 Hepatitis C Antibody <0.1 s/co ratio (0.0-0.9) 08/24/16 11:03 - Physical Exam Vitals and I&O: Vital Signs Temp 98.3 F 09/11/16 05:56 Pulse 74 09/11/16 05:56 Resp 20 09/11/16 05:56 BP 121/71 09/11/16 05:56 Pulse Ox 99 09/11/16 05:56 Intake & Output 09/10/16 09/11/16 09/11/16 18:59 06:59 18:59 Intake Total 1000 480 Balance 1000 480 Intake: Oral 1000 480 Other: # Voids 4 2 # Bowel Movements 1 0 Active Medications: Current Medications Acetaminophen (Tylenol) 650 mg PO Q4HR PRN PRN Reason: Pain (Mild) Stop: 10/23/16 16:09 Last Admin: 09/10/16 12:34 Dose: 650 mg Al Hydrox/Mg Hydrox/Simethicone (Maalox) 30 ml PO Q4HR PRN PRN Reason: GI DISTRESS Stop: 10/23/16 16:09 Benztropine Mesylate (Cogentin) 1 mg PO DAILY JOURDAN Stop: 10/24/16 08:59 Last Admin: 09/11/16 08:54 Dose: 1 mg Clonazepam (Klonopin) 2 mg PO BID JOURDAN PRN Reason: Protocol Stop: 10/24/16 08:59 Last Admin: 09/11/16 08:54 Dose: 2 mg Divalproex Sodium (Depakote Dr) 1,000 mg PO HS JOURDAN PRN Reason: Protocol Stop: 10/31/16 20:59 Last Admin: 09/10/16 20:14 Dose: 1,000 mg Docusate Sodium (Colace) 100 mg PO DAILY JOURDAN Stop: 10/24/16 08:59 Last Admin: 09/11/16 08:54 Dose: 100 mg Insulin Aspart (Novolog Insulin Sliding Scale) 0 units SUBQ BIDAC JOURDAN PRN Reason: Protocol Stop: 10/24/16 07:29 Last Admin: 09/11/16 06:45 Dose: Not Given Insulin Detemir (Levemir Insulin) 23 units SUBQ BID JOURDAN PRN Reason: Protocol Stop: 10/24/16 08:59 Last Admin: 09/11/16 08:53 Dose: 23 unit Lisinopril (Zestril) 2.5 mg PO HS JOURDAN Stop: 10/23/16 20:59 Last Admin: 09/10/16 20:15 Dose: 2.5 mg Lorazepam (Ativan) 1 mg PO Q6HR JOURDAN PRN Reason: Protocol Stop: 10/24/16 00:00 Last Admin: 09/11/16 11:44 Dose: 1 mg Magnesium Hydroxide (Milk Of Magnesia) 30 ml PO HS PRN PRN Reason: Constipation Stop: 11/08/16 18:32 Last Admin: 09/09/16 20:04 Dose: 30 ml Multivitamins/Vitamin C (Theragran) 1 tab PO DAILY JOURDAN Stop: 10/24/16 08:59 Last Admin: 09/11/16 08:54 Dose: 1 tab Quetiapine Fumarate (Seroquel) 200 mg PO HS JOURDAN PRN Reason: Protocol Stop: 10/29/16 20:59 Last Admin: 09/10/16 20:14 Dose: 200 mg Quetiapine Fumarate (Seroquel) 100 mg PO TID JOURDAN PRN Reason: Protocol Stop: 11/03/16 13:59 Last Admin: 09/11/16 13:53 Dose: 100 mg Sertraline HCl (Zoloft) 50 mg PO DAILY JOURDAN PRN Reason: Protocol Stop: 10/24/16 08:59 Last Admin: 09/11/16 08:54 Dose: 50 mg Zolpidem Tartrate (Ambien) 5 mg PO HS PRN PRN Reason: Insomnia Stop: 10/23/16 16:09 Last Admin: 09/05/16 20:38 Dose: 5 mg General: demented HEENT: NC/AT, PERRLA Neck: Supple, No JVD Lungs: CTAB Cardiovascular: RRR, Normal S1, Normal S2 Abdomen: soft non-tender, thin, positive bowel sound Extremities: excoriation Neurological: no change Internal Medicine Assmt/Plan - Assessment Assessment: DIABETES INSULIN REQUIRING. HYPERTENSION. HYPOTHYRODISM. CKD3. DJD. PSYCH DISORDER. HYPERLIPEDEMIA. - Plan Plan: MONITOR GLUCOSE AND VITALS INSULIN THERAPY PSYCH MEDS PSYCH FOLLOW UP. GENERAL NURSING CARE MEDICATION MANAGEMENT. SYMPTOMS CONTROL CONTINUE CURRENT CARE DISCUSSED WITH STAFF. - Plan Plan: see above Nutritional Asmnt/Malnutr-PDOC - Dietary Evaluation Malnutrition Findings (Please click <Entered> for more info): Nutritional Asmnt/Malnutrition Start: 08/25/16 14: 17 Text: Status: Complete Freq: Document 08/25/16 14:17 GSCINDA (Rec: 08/25/16 14:30 GSCINDA [email or web address]) Nutritional Asmnt/Malnutrition Patient General Information Nutritional Screening High Risk Screening Diagnosis ER: paranoid schizophrenia, renal insufficiency Pertinent Medical Hx/Surgical Hx ER: HTN, chronic renal disease , hypothyroidism, hyperlipidemia, paranoid schizophrenia, anxiety, insomnia, major depression, DM2 Subjective Information 56 year old female from SNF. Upon entering pt's room, pt asked RD to leave, unable to interview. Mild fat wasting to legs noted. Spoke to MANAN Haile, RN stated pt has very good appetite, eats whatever she wants, does not follow a DM diet, no difficulties chewing/ swallowing noted. RD discussed [id number] for pt with RN. Current Diet Order/ Nutrition Support [id number] Pertinent Medications Maalox, Colace, Novolog, Levemir, Theragran Pertinent Labs 08/24: sodium 131L, BUN 29H, creaitnine 1.7H, glucose 352H, A1c 7.3H, triglycerides 185H Nutritional Hx/Data Height 1.65 m Height (Calculated Centimeters) 165.1 Current Weight (lbs) 63.957 kg Weight (Calculated Kilograms) 64.0 Weight (Calculated Grams) 11168.5 [place] Body Weight 125 Weight Status Approriate GI Symptoms Skin Integrity/Comment: Paul 20. Skin intact. Estimated Nutritional Goals BEE in Kcals: Using Current wt Calories/Kcals/Kg CBW 64kg Kcals Calculated 1600-1920kcal (25-30kcal/kg) Protein: Using Current wt Protein g/kg: CBW Protein Calculated 38-1g (0.6-1g/kg, renal) Fluid: ml Per MD (hx. renal) Nutritional Problem 1. Problem Problem Altered nutrition related laboratory values related to Etiology DM aeb Signs/Symptoms: A1c 7.3, glucose 352 on adm Intervention/Recommendation Comments 1. Recommend [id number] to promote glycemic control. Discussed with MANAN Haile. 2. Monitor sodium level, recommend low sodium restriction to aid renal function if/once sodium level normalize. Expected Outcomes/Goals Expected Outcomes/Goals 1. PO intake to meet at least 75% of estimated nutritional needs.
[2016-09-12] MEDS: INSULIN ASPART SLIDING SCALE 100 UNITS/ML UNIT SUBQ SCH ×2 (06:38→16:20)
--- NOTE | 2016-09-12 08:13 | General Progress Note ---
Subjective - Review of Systems Subjective: PATIENT IS SEEN AND EXAMINED. CHART REVIEWED. LABILE MOOD. REFUSING MEDS AT TIMES. DISCUSSED WITH STAFF RE; THEIR CONCERNS. Objective - Results Result Diagrams: 08/24/16 11:03 08/24/16 11:03 Recent Labs: Laboratory Last Values WBC 7.7 Th/cmm (4.8-10.8) 08/24/16 11:03 RBC 3.87 Mil/cmm (3.80-5.10) 08/24/16 11:03 Hgb 12.4 gm/dL (11.7-15.5) 08/24/16 11:03 Hct 35.3 % (35.0-45.0) 08/24/16 11:03 MCV 91.3 fl (81-100) 08/24/16 11:03 MCH 32.0 pg (27.0-31.0) H 08/24/16 11:03 MCHC Differential 35.0 pg (28.0-36.0) 08/24/16 11:03 RDW 11.8 % (11.5-20.0) 08/24/16 11:03 Plt Count 242 Th/cmm (150-400) 08/24/16 11:03 MPV 7.9 fl 08/24/16 11:03 Neutrophils % 68.5 % (40.0-80.0) 08/24/16 11:03 Lymphocytes % 24.4 % (20.0-50.0) 08/24/16 11:03 Monocytes % 5.8 % (2.0-10.0) 08/24/16 11:03 Eosinophils % 0.8 % (0.0-5.0) 08/24/16 11:03 Basophils % 0.5 % (0.0-2.0) 08/24/16 11:03 Sodium 131 mEq/L (136-145) L 08/24/16 11:03 Potassium 4.1 mEq/L (3.5-5.1) 08/24/16 11:03 Chloride 103 mEq/L (98-107) 08/24/16 11:03 Carbon Dioxide 24.0 mEq/L (21.0-31.0) 08/24/16 11:03 Anion Gap 8.1 (7.0-16.0) 08/24/16 11:03 BUN 29 mg/dL (7-25) H 08/24/16 11:03 Creatinine 1.7 mg/dL (0.6-1.2) H 08/24/16 11:03 Est GFR ( Amer) 39.7 ml/min (>90) 08/24/16 11:03 Est GFR (Non-Af Amer) 32.8 ml/min 08/24/16 11:03 BUN/Creatinine Ratio 17.1 08/24/16 11:03 Glucose 352 mg/dL (70-105) H 08/24/16 11:03 POC Glucose 72 MG/DL (70 - 105) 09/12/16 06:00 Hemoglobin A1c % 7.3 % (4.0-6.0) H 08/24/16 11:03 Calcium 8.9 mg/dL (8.6-10.3) 08/24/16 11:03 Triglycerides 185 mg/dL (<150) H 08/24/16 11:03 Cholesterol 169 mg/dL (<200) 08/24/16 11:03 LDL Cholesterol Direct 97 mg/dL (75-193) 08/24/16 11:03 HDL Cholesterol 49 mg/dL (23-92) 08/24/16 11:03 TSH 0.66 uIU/ml (0.34-5.60) 08/24/16 11:03 Valproic Acid 59.7 ug/mL (50.0-100.0) 09/05/16 08:40 RPR NONREACTIVE (NONREACTIVE) 08/24/16 11:03 Hepatitis A IgM Ab Negative (Negative) 08/24/16 11:03 Hep Bs Antigen Negative (Negative) 08/24/16 11:03 Hep B Core IgM Ab Negative (Negative) 08/24/16 11:03 Hepatitis C Antibody <0.1 s/co ratio (0.0-0.9) 08/24/16 11:03 - Physical Exam Vitals and I&O: Vital Signs Temp 98.3 F 09/12/16 06:17 Pulse 78 09/12/16 06:17 Resp 18 09/12/16 06:17 BP 98/68 09/12/16 06:17 Pulse Ox 96 09/12/16 06:17 Intake & Output 09/11/16 09/12/16 09/12/16 18:59 06:59 18:59 Intake Total 1800 480 Balance 1800 480 Intake: Oral 1800 480 Other: # Voids 4 3 # Bowel Movements 1 0 Active Medications: Current Medications Acetaminophen (Tylenol) 650 mg PO Q4HR PRN PRN Reason: Pain (Mild) Stop: 10/23/16 16:09 Last Admin: 09/10/16 12:34 Dose: 650 mg Al Hydrox/Mg Hydrox/Simethicone (Maalox) 30 ml PO Q4HR PRN PRN Reason: GI DISTRESS Stop: 10/23/16 16:09 Benztropine Mesylate (Cogentin) 1 mg PO DAILY JOURDAN Stop: 10/24/16 08:59 Last Admin: 09/11/16 08:54 Dose: 1 mg Clonazepam (Klonopin) 2 mg PO BID JOURDAN PRN Reason: Protocol Stop: 10/24/16 08:59 Last Admin: 09/11/16 17:01 Dose: 2 mg Divalproex Sodium (Depakote Dr) 1,000 mg PO HS JOURDAN PRN Reason: Protocol Stop: 10/31/16 20:59 Last Admin: 09/11/16 20:44 Dose: 1,000 mg Docusate Sodium (Colace) 100 mg PO DAILY JOURDAN Stop: 10/24/16 08:59 Last Admin: 09/11/16 08:54 Dose: 100 mg Insulin Aspart (Novolog Insulin Sliding Scale) 0 units SUBQ BIDAC JOURDAN PRN Reason: Protocol Stop: 10/24/16 07:29 Last Admin: 09/12/16 06:38 Dose: Not Given Insulin Detemir (Levemir Insulin) 23 units SUBQ BID JOURDAN PRN Reason: Protocol Stop: 10/24/16 08:59 Last Admin: 09/11/16 17:01 Dose: 1 unit Lisinopril (Zestril) 2.5 mg PO HS JOURDAN Stop: 10/23/16 20:59 Last Admin: 09/11/16 20:39 Dose: 2.5 mg Lorazepam (Ativan) 1 mg PO Q6HR JOURDAN PRN Reason: Protocol Stop: 10/24/16 00:00 Last Admin: 09/12/16 05:57 Dose: 1 mg Magnesium Hydroxide (Milk Of Magnesia) 30 ml PO HS PRN PRN Reason: Constipation Stop: 11/08/16 18:32 Last Admin: 09/09/16 20:04 Dose: 30 ml Multivitamins/Vitamin C (Theragran) 1 tab PO DAILY JOURDAN Stop: 10/24/16 08:59 Last Admin: 09/11/16 08:54 Dose: 1 tab Quetiapine Fumarate (Seroquel) 200 mg PO HS JOURDAN PRN Reason: Protocol Stop: 10/29/16 20:59 Last Admin: 09/11/16 20:44 Dose: 200 mg Quetiapine Fumarate (Seroquel) 100 mg PO TID JOURDAN PRN Reason: Protocol Stop: 11/03/16 13:59 Last Admin: 09/11/16 20:45 Dose: 100 mg Sertraline HCl (Zoloft) 50 mg PO DAILY JOURDAN PRN Reason: Protocol Stop: 10/24/16 08:59 Last Admin: 09/11/16 08:54 Dose: 50 mg Zolpidem Tartrate (Ambien) 5 mg PO HS PRN PRN Reason: Insomnia Stop: 10/23/16 16:09 Last Admin: 09/05/16 20:38 Dose: 5 mg General: Alert, Cooperative HEENT: Atraumatic, PERRLA, EOMI Neck: Supple, JVD, Thyromegaly Cardiovascular: Regular rate, Normal S1, Normal S2 Abdomen: Bowel sounds, Soft Extremities: Other (No edema.) Neurological: Normal gait Assessment/Plan - Assessment Assessment: DIABETES INSULIN REQUIRING. HYPERTENSION. HYPOTHYRODISM. CKD3. DJD. PSYCH DISORDER. HYPERLIPEDEMIA. - Plan Plan: MONITOR GLUCOSE AND VITALS INSULIN THERAPY PSYCH MEDS PSYCH FOLLOW UP. FALL PRECAUTIONS. GENERAL NURSING CARE MEDICATION MANAGEMENT. SYMPTOMS CONTROL CONTINUE CURRENT CARE DISCUSSED WITH STAFF. Nutritional Asmnt/Malnutr-PDOC - Dietary Evaluation Malnutrition Findings (Please click <Entered> for more info): Nutritional Asmnt/Malnutrition Start: 08/25/16 14: 17 Text: Status: Complete Freq: Document 08/25/16 14:17 DILCIA (Rec: 08/25/16 14:30 DILCIA [email or web address]) Nutritional Asmnt/Malnutrition Patient General Information Nutritional Screening High Risk Screening Diagnosis ER: paranoid schizophrenia, renal insufficiency Pertinent Medical Hx/Surgical Hx ER: HTN, chronic renal disease , hypothyroidism, hyperlipidemia, paranoid schizophrenia, anxiety, insomnia, major depression, DM2 Subjective Information 56 year old female from SNF. Upon entering pt's room, pt asked RD to leave, unable to interview. Mild fat wasting to legs noted. Spoke to MANAN Haile, RN stated pt has very good appetite, eats whatever she wants, does not follow a DM diet, no difficulties chewing/ swallowing noted. RD discussed [id number] for pt with RN. Current Diet Order/ Nutrition Support [id number] Pertinent Medications Maalox, Colace, Novolog, Levemir, Theragran Pertinent Labs 08/24: sodium 131L, BUN 29H, creaitnine 1.7H, glucose 352H, A1c 7.3H, triglycerides 185H Nutritional Hx/Data Height 1.65 m Height (Calculated Centimeters) 165.1 Current Weight (lbs) 63.957 kg Weight (Calculated Kilograms) 64.0 Weight (Calculated Grams) 12336.5 Hye Body Weight 125 Weight Status Approriate GI Symptoms Skin Integrity/Comment: Paul 20. Skin intact. Estimated Nutritional Goals BEE in Kcals: Using Current wt Calories/Kcals/Kg CBW 64kg Kcals Calculated 1600-1920kcal (25-30kcal/kg) Protein: Using Current wt Protein g/kg: CBW Protein Calculated 38-1g (0.6-1g/kg, renal) Fluid: ml Per MD (hx. renal) Nutritional Problem 1. Problem Problem Altered nutrition related laboratory values related to Etiology DM aeb Signs/Symptoms: A1c 7.3, glucose 352 on adm Intervention/Recommendation Comments 1. Recommend [id number] to promote glycemic control. Discussed with MANAN Haile. 2. Monitor sodium level, recommend low sodium restriction to aid renal function if/once sodium level normalize. Expected Outcomes/Goals Expected Outcomes/Goals 1. PO intake to meet at least 75% of estimated nutritional needs.
[2016-09-12] MEDS: Insulin Detemir 100 units/mL 10mL Vial SUBQ SCH ×2 (09:01→16:27)
[2016-09-12] MEDS: Magnesium Hydroxide (MOM) 30 mL UDC PO PRN (09:04)
[2016-09-12] MEDS: Multivitamin Tab PO SCH (09:04)
[2016-09-12] MEDS: Benztropine 1 MG TAB PO SCH (09:05)
--- NOTE | 2016-09-12 10:44 | Progress Notes ---
DATE: 09/11/2016 SUBJECTIVE: Chart reviewed and the patient interviewed. Also discussed the patient's condition with the staff and reviewed records and labs. The patient is still paranoid and is still manicky, but less than before. Much easier to redirect her. Also thought processes are more goal directed, although occasionally circumstantial and tangential, but no flight of ideas. The patient denies any thoughts of suicide or homicide. She denies any side effects of medications. ASSESSMENT: The patient is still waiting for placement, but less manicky. TREATMENT PLAN: Continue current medications. Also, continue working on placement issue and discharge plan and continue to follow up. She is still awaiting for placement. [facility]# [id number]
[2016-09-13] MEDS: INSULIN ASPART SLIDING SCALE 100 UNITS/ML UNIT SUBQ SCH ×2 (06:34→17:13)
[2016-09-13] MEDS: Multivitamin Tab PO SCH (08:18)
[2016-09-13] MEDS: Benztropine 1 MG TAB PO SCH (08:18)
--- NOTE | 2016-09-13 08:56 | General Progress Note ---
Subjective - Review of Systems Subjective: PATIENT IS SEEN AND EXAMINED. LABILE MOOD. DISCUSSED WITH STAFF RE; THEIR CONCERNS. Objective - Results Result Diagrams: 08/24/16 11:03 08/24/16 11:03 Recent Labs: Laboratory Last Values WBC 7.7 Th/cmm (4.8-10.8) 08/24/16 11:03 RBC 3.87 Mil/cmm (3.80-5.10) 08/24/16 11:03 Hgb 12.4 gm/dL (11.7-15.5) 08/24/16 11:03 Hct 35.3 % (35.0-45.0) 08/24/16 11:03 MCV 91.3 fl (81-100) 08/24/16 11:03 MCH 32.0 pg (27.0-31.0) H 08/24/16 11:03 MCHC Differential 35.0 pg (28.0-36.0) 08/24/16 11:03 RDW 11.8 % (11.5-20.0) 08/24/16 11:03 Plt Count 242 Th/cmm (150-400) 08/24/16 11:03 MPV 7.9 fl 08/24/16 11:03 Neutrophils % 68.5 % (40.0-80.0) 08/24/16 11:03 Lymphocytes % 24.4 % (20.0-50.0) 08/24/16 11:03 Monocytes % 5.8 % (2.0-10.0) 08/24/16 11:03 Eosinophils % 0.8 % (0.0-5.0) 08/24/16 11:03 Basophils % 0.5 % (0.0-2.0) 08/24/16 11:03 Sodium 131 mEq/L (136-145) L 08/24/16 11:03 Potassium 4.1 mEq/L (3.5-5.1) 08/24/16 11:03 Chloride 103 mEq/L (98-107) 08/24/16 11:03 Carbon Dioxide 24.0 mEq/L (21.0-31.0) 08/24/16 11:03 Anion Gap 8.1 (7.0-16.0) 08/24/16 11:03 BUN 29 mg/dL (7-25) H 08/24/16 11:03 Creatinine 1.7 mg/dL (0.6-1.2) H 08/24/16 11:03 Est GFR ( Amer) 39.7 ml/min (>90) 08/24/16 11:03 Est GFR (Non-Af Amer) 32.8 ml/min 08/24/16 11:03 BUN/Creatinine Ratio 17.1 08/24/16 11:03 Glucose 352 mg/dL (70-105) H 08/24/16 11:03 POC Glucose 99 MG/DL (70 - 105) 09/13/16 06:19 Hemoglobin A1c % 7.3 % (4.0-6.0) H 08/24/16 11:03 Calcium 8.9 mg/dL (8.6-10.3) 08/24/16 11:03 Triglycerides 185 mg/dL (<150) H 08/24/16 11:03 Cholesterol 169 mg/dL (<200) 08/24/16 11:03 LDL Cholesterol Direct 97 mg/dL (75-193) 08/24/16 11:03 HDL Cholesterol 49 mg/dL (23-92) 08/24/16 11:03 TSH 0.66 uIU/ml (0.34-5.60) 08/24/16 11:03 Valproic Acid 59.7 ug/mL (50.0-100.0) 09/05/16 08:40 RPR NONREACTIVE (NONREACTIVE) 08/24/16 11:03 Hepatitis A IgM Ab Negative (Negative) 08/24/16 11:03 Hep Bs Antigen Negative (Negative) 08/24/16 11:03 Hep B Core IgM Ab Negative (Negative) 08/24/16 11:03 Hepatitis C Antibody <0.1 s/co ratio (0.0-0.9) 08/24/16 11:03 - Physical Exam Vitals and I&O: Vital Signs Temp 98.2 F 09/13/16 05:44 Pulse 72 09/13/16 05:44 Resp 20 09/13/16 05:44 BP 95/56 09/13/16 05:44 Pulse Ox 98 09/13/16 05:44 Intake & Output 09/12/16 09/13/16 09/13/16 18:59 06:59 18:59 Intake Total 1000 Balance 1000 Intake: Oral 1000 Other: # Voids 4 1 # Bowel Movements 1 1 Active Medications: Current Medications Acetaminophen (Tylenol) 650 mg PO Q4HR PRN PRN Reason: Pain (Mild) Stop: 10/23/16 16:09 Last Admin: 09/10/16 12:34 Dose: 650 mg Al Hydrox/Mg Hydrox/Simethicone (Maalox) 30 ml PO Q4HR PRN PRN Reason: GI DISTRESS Stop: 10/23/16 16:09 Benztropine Mesylate (Cogentin) 1 mg PO DAILY JOURDAN Stop: 10/24/16 08:59 Last Admin: 09/13/16 08:18 Dose: 1 mg Clonazepam (Klonopin) 2 mg PO BID JOURDAN PRN Reason: Protocol Stop: 10/24/16 08:59 Last Admin: 09/13/16 08:21 Dose: 2 mg Divalproex Sodium (Depakote Dr) 1,000 mg PO HS JOURDAN PRN Reason: Protocol Stop: 10/31/16 20:59 Last Admin: 09/12/16 20:19 Dose: 1,000 mg Docusate Sodium (Colace) 100 mg PO DAILY JOURDAN Stop: 10/24/16 08:59 Last Admin: 09/13/16 08:18 Dose: 100 mg Insulin Aspart (Novolog Insulin Sliding Scale) 0 units SUBQ BIDAC JOURDAN PRN Reason: Protocol Stop: 10/24/16 07:29 Last Admin: 09/13/16 06:34 Dose: Not Given Insulin Detemir (Levemir Insulin) 23 units SUBQ BID JOURDAN PRN Reason: Protocol Stop: 10/24/16 08:59 Last Admin: 09/12/16 16:27 Dose: 23 unit Lisinopril (Zestril) 2.5 mg PO HS JOURDAN Stop: 10/23/16 20:59 Last Admin: 09/12/16 20:18 Dose: 2.5 mg Lorazepam (Ativan) 1 mg PO Q6HR JOURDAN PRN Reason: Protocol Stop: 10/24/16 00:00 Last Admin: 09/13/16 06:34 Dose: Not Given Magnesium Hydroxide (Milk Of Magnesia) 30 ml PO HS PRN PRN Reason: Constipation Stop: 11/08/16 18:32 Last Admin: 09/12/16 09:04 Dose: 30 ml Multivitamins/Vitamin C (Theragran) 1 tab PO DAILY JOURDAN Stop: 10/24/16 08:59 Last Admin: 09/13/16 08:18 Dose: 1 tab Quetiapine Fumarate (Seroquel) 200 mg PO HS JOURDAN PRN Reason: Protocol Stop: 10/29/16 20:59 Last Admin: 09/12/16 20:19 Dose: 200 mg Quetiapine Fumarate (Seroquel) 100 mg PO TID JOURDAN PRN Reason: Protocol Stop: 11/03/16 13:59 Last Admin: 09/13/16 08:18 Dose: 100 mg Sertraline HCl (Zoloft) 50 mg PO DAILY JOURDAN PRN Reason: Protocol Stop: 10/24/16 08:59 Last Admin: 09/13/16 08:18 Dose: 50 mg Zolpidem Tartrate (Ambien) 5 mg PO HS PRN PRN Reason: Insomnia Stop: 10/23/16 16:09 Last Admin: 09/12/16 21:31 Dose: 5 mg General: Alert, Cooperative HEENT: Atraumatic, PERRLA, EOMI, Mucous membr. moist/pink Neck: Supple, +2 carotid pulse wo bruit Cardiovascular: Regular rate, Normal S1, Normal S2 Lungs: Clear to auscultation Abdomen: Bowel sounds, Soft Assessment/Plan - Assessment Assessment: DIABETES INSULIN REQUIRING. HYPERTENSION. HYPOTHYRODISM. CKD3. DJD. PSYCH DISORDER. HYPERLIPEDEMIA. - Plan Plan: MONITOR GLUCOSE AND VITALS INSULIN THERAPY PSYCH MEDS PSYCH FOLLOW UP. FALL PRECAUTIONS. GENERAL NURSING CARE MEDICATION MANAGEMENT. SYMPTOMS CONTROL CONTINUE CURRENT CARE DISCUSSED WITH STAFF. Nutritional Asmnt/Malnutr-PDOC - Dietary Evaluation Malnutrition Findings (Please click <Entered> for more info): Nutritional Asmnt/Malnutrition Start: 08/25/16 14: 17 Text: Status: Complete Freq: Document 08/25/16 14:17 GSCINDA (Rec: 08/25/16 14:30 DILCIA [email or web address]) Nutritional Asmnt/Malnutrition Patient General Information Nutritional Screening High Risk Screening Diagnosis ER: paranoid schizophrenia, renal insufficiency Pertinent Medical Hx/Surgical Hx ER: HTN, chronic renal disease , hypothyroidism, hyperlipidemia, paranoid schizophrenia, anxiety, insomnia, major depression, DM2 Subjective Information 56 year old female from SNF. Upon entering pt's room, pt asked RD to leave, unable to interview. Mild fat wasting to legs noted. Spoke to MANAN Haile, RN stated pt has very good appetite, eats whatever she wants, does not follow a DM diet, no difficulties chewing/ swallowing noted. RD discussed [id number] for pt with RN. Current Diet Order/ Nutrition Support [id number] Pertinent Medications Maalox, Colace, Novolog, Levemir, Theragran Pertinent Labs 08/24: sodium 131L, BUN 29H, creaitnine 1.7H, glucose 352H, A1c 7.3H, triglycerides 185H Nutritional Hx/Data Height 1.65 m Height (Calculated Centimeters) 165.1 Current Weight (lbs) 63.957 kg Weight (Calculated Kilograms) 64.0 Weight (Calculated Grams) 53797.5 [place] Body Weight 125 Weight Status Approriate GI Symptoms Skin Integrity/Comment: Paul Garcia. Skin intact. Estimated Nutritional Goals BEE in Kcals: Using Current wt Calories/Kcals/Kg CBW 64kg Kcals Calculated 1600-1920kcal (25-30kcal/kg) Protein: Using Current wt Protein g/kg: CBW Protein Calculated 38-1g (0.6-1g/kg, renal) Fluid: ml Per MD (hx. renal) Nutritional Problem 1. Problem Problem Altered nutrition related laboratory values related to Etiology DM aeb Signs/Symptoms: A1c 7.3, glucose 352 on adm Intervention/Recommendation Comments 1. Recommend [id number] to promote glycemic control. Discussed with MANAN Haile. 2. Monitor sodium level, recommend low sodium restriction to aid renal function if/once sodium level normalize. Expected Outcomes/Goals Expected Outcomes/Goals 1. PO intake to meet at least 75% of estimated nutritional needs.
[2016-09-13] MEDS: Insulin Detemir 100 units/mL 10mL Vial SUBQ SCH ×2 (10:11→17:29)
[2016-09-13] MEDS: Magnesium Hydroxide (MOM) 30 mL UDC PO PRN (13:07)
--- NOTE | 2016-09-13 19:57 | Progress Notes ---
DATE: 09/12/2016 SUBJECTIVE: Chart reviewed and the patient interviewed. Also discussed the patient's condition with the staff and reviewed records and labs. The patient is still slightly manicky, but she is showing much improvement lately, and she is easier to redirect. She also still pacing up and down the unit, but not as much. Also her speech not as pressured. The patient is still preoccupied with "going home." Trying to discuss with the patient the fact that she will not able to go home, but we are looking for placement for her, but the patient has difficulty understanding, and she is still insisting that she wants to go home. On the other hand, the patient continued to comply with taking her medications with no side effects of medications. ASSESSMENT: The patient is less manicky. TREATMENT PLAN: manager maintenance still have difficulty finding placement for the patient, but continue to work on placement issue. At the same time, we will continue to work on adjusting care medications and continue to work on her ineffective coping. JOB# [id number]
--- NOTE | 2016-09-14 03:46 | Progress Notes ---
DATE: 09/13/2016 SUBJECTIVE: Chart is reviewed and the patient interviewed. Also discussed the patient's condition with the staff and reviewed the records and labs. The patient is still anxious about her discharge and about where she is going to live and she is still insisting that she wants to go home. The patient also still has pressured speech and she is still rambling and gets agitated, but easier to redirect her. The patient also is still pacing up and down the unit, but no major behavioral problems. The patient is compliant with taking her medications with no side effects of medications ASSESSMENT: The patient still needs placement and is still exhibiting some manic behavior, but seems to be decreasing ____. TREATMENT PLAN: gym manager continue to work on placement issue and discharge plans. At the same time, we will continue to monitor her behavior and we will continue to follow up. JOB# [id number]
[2016-09-14] MEDS: INSULIN ASPART SLIDING SCALE 100 UNITS/ML UNIT SUBQ SCH ×2 (06:40→17:04)
--- NOTE | 2016-09-14 08:30 | General Progress Note ---
Subjective - Review of Systems Subjective: PATIENT IS SEEN AND EXAMINED. AMBULATING IN HALLWAY. I AM FEELIN OK. DISCUSSED WITH STAFF RE: OVERNIGHT EVENTS. Objective - Results Result Diagrams: 08/24/16 11:03 08/24/16 11:03 Recent Labs: Laboratory Last Values WBC 7.7 Th/cmm (4.8-10.8) 08/24/16 11:03 RBC 3.87 Mil/cmm (3.80-5.10) 08/24/16 11:03 Hgb 12.4 gm/dL (11.7-15.5) 08/24/16 11:03 Hct 35.3 % (35.0-45.0) 08/24/16 11:03 MCV 91.3 fl (81-100) 08/24/16 11:03 MCH 32.0 pg (27.0-31.0) H 08/24/16 11:03 MCHC Differential 35.0 pg (28.0-36.0) 08/24/16 11:03 RDW 11.8 % (11.5-20.0) 08/24/16 11:03 Plt Count 242 Th/cmm (150-400) 08/24/16 11:03 MPV 7.9 fl 08/24/16 11:03 Neutrophils % 68.5 % (40.0-80.0) 08/24/16 11:03 Lymphocytes % 24.4 % (20.0-50.0) 08/24/16 11:03 Monocytes % 5.8 % (2.0-10.0) 08/24/16 11:03 Eosinophils % 0.8 % (0.0-5.0) 08/24/16 11:03 Basophils % 0.5 % (0.0-2.0) 08/24/16 11:03 Sodium 131 mEq/L (136-145) L 08/24/16 11:03 Potassium 4.1 mEq/L (3.5-5.1) 08/24/16 11:03 Chloride 103 mEq/L (98-107) 08/24/16 11:03 Carbon Dioxide 24.0 mEq/L (21.0-31.0) 08/24/16 11:03 Anion Gap 8.1 (7.0-16.0) 08/24/16 11:03 BUN 29 mg/dL (7-25) H 08/24/16 11:03 Creatinine 1.7 mg/dL (0.6-1.2) H 08/24/16 11:03 Est GFR ( Amer) 39.7 ml/min (>90) 08/24/16 11:03 Est GFR (Non-Af Amer) 32.8 ml/min 08/24/16 11:03 BUN/Creatinine Ratio 17.1 08/24/16 11:03 Glucose 352 mg/dL (70-105) H 08/24/16 11:03 POC Glucose 71 MG/DL (70 - 105) 09/14/16 06:08 Hemoglobin A1c % 7.3 % (4.0-6.0) H 08/24/16 11:03 Calcium 8.9 mg/dL (8.6-10.3) 08/24/16 11:03 Triglycerides 185 mg/dL (<150) H 08/24/16 11:03 Cholesterol 169 mg/dL (<200) 08/24/16 11:03 LDL Cholesterol Direct 97 mg/dL (75-193) 08/24/16 11:03 HDL Cholesterol 49 mg/dL (23-92) 08/24/16 11:03 TSH 0.66 uIU/ml (0.34-5.60) 08/24/16 11:03 Valproic Acid 59.7 ug/mL (50.0-100.0) 09/05/16 08:40 RPR NONREACTIVE (NONREACTIVE) 08/24/16 11:03 Hepatitis A IgM Ab Negative (Negative) 08/24/16 11:03 Hep Bs Antigen Negative (Negative) 08/24/16 11:03 Hep B Core IgM Ab Negative (Negative) 08/24/16 11:03 Hepatitis C Antibody <0.1 s/co ratio (0.0-0.9) 08/24/16 11:03 - Physical Exam Vitals and I&O: Vital Signs Temp 97.8 F 09/13/16 14:00 Pulse 90 09/13/16 20:28 Resp 20 09/13/16 20:00 BP 103/64 09/13/16 20:28 Pulse Ox 96 09/13/16 14:00 Intake & Output 05/03/17 05/04/17 05/04/17 18:59 06:59 18:59 Intake Total 900 Balance 900 Weight (lbs) 64.365 kg Intake: Oral 900 Other: # Voids 3 # Bowel Movements 1 Active Medications: Current Medications Acetaminophen (Tylenol) 650 mg PO Q4HR PRN PRN Reason: Pain (Mild) Stop: 10/23/16 16:09 Last Admin: 09/10/16 12:34 Dose: 650 mg Al Hydrox/Mg Hydrox/Simethicone (Maalox) 30 ml PO Q4HR PRN PRN Reason: GI DISTRESS Stop: 10/23/16 16:09 Benztropine Mesylate (Cogentin) 1 mg PO DAILY JOURDAN Stop: 10/24/16 08:59 Last Admin: 09/13/16 08:18 Dose: 1 mg Clonazepam (Klonopin) 2 mg PO BID JOURDAN PRN Reason: Protocol Stop: 10/24/16 08:59 Last Admin: 09/13/16 17:13 Dose: 2 mg Divalproex Sodium (Depakote Dr) 1,000 mg PO HS JOURDAN PRN Reason: Protocol Stop: 10/31/16 20:59 Last Admin: 09/13/16 20:28 Dose: 1,000 mg Docusate Sodium (Colace) 100 mg PO DAILY JOURDAN Stop: 10/24/16 08:59 Last Admin: 09/13/16 08:18 Dose: 100 mg Insulin Aspart (Novolog Insulin Sliding Scale) 0 units SUBQ BIDAC JOURDAN PRN Reason: Protocol Stop: 10/24/16 07:29 Last Admin: 09/14/16 06:40 Dose: Not Given Insulin Detemir (Levemir Insulin) 23 units SUBQ BID JOURDAN PRN Reason: Protocol Stop: 10/24/16 08:59 Last Admin: 09/13/16 17:29 Dose: 23 unit Lisinopril (Zestril) 2.5 mg PO HS JOURDAN Stop: 10/23/16 20:59 Last Admin: 09/13/16 20:28 Dose: 2.5 mg Lorazepam (Ativan) 1 mg PO Q6HR JOURDAN PRN Reason: Protocol Stop: 10/24/16 00:00 Last Admin: 09/14/16 06:04 Dose: 1 mg Magnesium Hydroxide (Milk Of Magnesia) 30 ml PO HS PRN PRN Reason: Constipation Stop: 11/08/16 18:32 Last Admin: 09/13/16 13:07 Dose: 30 ml Multivitamins/Vitamin C (Theragran) 1 tab PO DAILY JOURDAN Stop: 10/24/16 08:59 Last Admin: 09/13/16 08:18 Dose: 1 tab Quetiapine Fumarate (Seroquel) 200 mg PO HS JOURDAN PRN Reason: Protocol Stop: 10/29/16 20:59 Last Admin: 09/13/16 20:29 Dose: 200 mg Quetiapine Fumarate (Seroquel) 100 mg PO TID JOURDAN PRN Reason: Protocol Stop: 11/03/16 13:59 Last Admin: 09/13/16 20:28 Dose: 100 mg Sertraline HCl (Zoloft) 50 mg PO DAILY JOURDAN PRN Reason: Protocol Stop: 10/24/16 08:59 Last Admin: 09/13/16 08:18 Dose: 50 mg Zolpidem Tartrate (Ambien) 5 mg PO HS PRN PRN Reason: Insomnia Stop: 10/23/16 16:09 Last Admin: 09/13/16 20:41 Dose: 5 mg General: Alert, Cooperative, No acute distress HEENT: Atraumatic, PERRLA, EOMI Neck: Supple, +2 carotid pulse wo bruit Cardiovascular: Regular rate, Normal S1, Normal S2 Lungs: Clear to auscultation Abdomen: Bowel sounds, Soft Neurological: Normal gait Assessment/Plan - Assessment Assessment: DIABETES INSULIN REQUIRING BETTER SUGAR CONTROL. HYPERTENSION. HYPOTHYRODISM. CKD3. DJD. PSYCH DISORDER. HYPERLIPEDEMIA. - Plan Plan: MONITOR GLUCOSE AND VITALS INSULIN THERAPY PSYCH MEDS. FOLLOW UP LAB. PSYCH FOLLOW UP. FALL PRECAUTIONS. GENERAL NURSING CARE MEDICATION MANAGEMENT. SYMPTOMS CONTROL CONTINUE CURRENT CARE DISCUSSED WITH STAFF. Nutritional Asmnt/Malnutr-PDOC - Dietary Evaluation Malnutrition Findings (Please click <Entered> for more info): Nutritional Asmnt/Malnutrition Start: 08/25/16 14: 17 Text: Status: Complete Freq: Document 08/25/16 14:17 GSUN (Rec: 08/25/16 14:30 GSCINDA [email or web address]) Nutritional Asmnt/Malnutrition Patient General Information Nutritional Screening High Risk Screening Diagnosis ER: paranoid schizophrenia, renal insufficiency Pertinent Medical Hx/Surgical Hx ER: HTN, chronic renal disease , hypothyroidism, hyperlipidemia, paranoid schizophrenia, anxiety, insomnia, major depression, DM2 Subjective Information 56 year old female from SNF. Upon entering pt's room, pt asked RD to leave, unable to interview. Mild fat wasting to legs noted. Spoke to MANAN Haile, RN stated pt has very good appetite, eats whatever she wants, does not follow a DM diet, no difficulties chewing/ swallowing noted. RD discussed [id number] for pt with RN. Current Diet Order/ Nutrition Support [id number] Pertinent Medications Maalox, Colace, Novolog, Levemir, Theragran Pertinent Labs 08/24: sodium 131L, BUN 29H, creaitnine 1.7H, glucose 352H, A1c 7.3H, triglycerides 185H Nutritional Hx/Data Height 1.65 m Height (Calculated Centimeters) 165.1 Current Weight (lbs) 63.957 kg Weight (Calculated Kilograms) 64.0 Weight (Calculated Grams) 19782.5 [place] Body Weight 125 Weight Status Approriate GI Symptoms Skin Integrity/Comment: Paul 20. Skin intact. Estimated Nutritional Goals BEE in Kcals: Using Current wt Calories/Kcals/Kg CBW 64kg Kcals Calculated 1600-1920kcal (25-30kcal/kg) Protein: Using Current wt Protein g/kg: CBW Protein Calculated 38-1g (0.6-1g/kg, renal) Fluid: ml Per MD (hx. renal) Nutritional Problem 1. Problem Problem Altered nutrition related laboratory values related to Etiology DM aeb Signs/Symptoms: A1c 7.3, glucose 352 on adm Intervention/Recommendation Comments 1. Recommend [id number] to promote glycemic control. Discussed with MANAN Haile. 2. Monitor sodium level, recommend low sodium restriction to aid renal function if/once sodium level normalize. Expected Outcomes/Goals Expected Outcomes/Goals 1. PO intake to meet at least 75% of estimated nutritional needs.
[2016-09-14] MEDS: Multivitamin Tab PO SCH (09:49)
[2016-09-14] MEDS: Benztropine 1 MG TAB PO SCH (09:49)
[2016-09-14] MEDS: Insulin Detemir 100 units/mL 10mL Vial SUBQ SCH ×2 (09:49→17:09)
[2016-09-15 07:01] LABS: % BASOPHILS 0.6 % (0.0-2.0); % LYMPHOCYTES 36.9 % (20.0-50.0); % MONOCYTES 6.7 % (2.0-10.0); % NEUTROPHILS 52.8 % (40.0-80.0); HEMATOCRIT 32.1 % (35.0-45.0); HEMOGLOBIN 11.2 gm/dL (11.7-15.5); MEAN CORPUSCULAR HEMOGLOBIN 31.7 pg (27.0-31.0); MEAN CORPUSCULAR HGB CONC 34.8 pg (28.0-36.0); MEAN PLATELET VOLUME 6.8 fl; NEUTROPHILE ABSOLUTE 2.3 Th/cmm (1.8-8.0); PLATELET COUNT 205 Th/cmm (150-400); RED BLOOD COUNT 3.53 Mil/cmm (3.80-5.10); RED CELL DISTRIBUTION WIDTH 11.2 % (11.5-20.0); WHITE BLOOD COUNT 4.3 Th/cmm (4.8-10.8)
[2016-09-15] MEDS: INSULIN ASPART SLIDING SCALE 100 UNITS/ML UNIT SUBQ SCH ×2 (07:01→17:13)
[2016-09-15 07:23] LABS: ALB/GLOB RATIO 1.4 (1.0-1.8); ANION GAP 4.2 (7.0-16.0); BILIRUBIN,TOTAL 0.3 mg/dL (0.3-1.0); CALCIUM SERUM 9.4 mg/dL (8.6-10.3); CREATININE - SERUM 1.8 mg/dL (0.6-1.2); POTASSIUM SERUM 4.2 mEq/L (3.5-5.1)
[2016-09-15] MEDS: Multivitamin Tab PO SCH (08:23)
[2016-09-15] MEDS: Benztropine 1 MG TAB PO SCH (08:23)
[2016-09-15] MEDS: Insulin Detemir 100 units/mL 10mL Vial SUBQ SCH ×2 (08:24→17:13)
--- NOTE | 2016-09-15 09:11 | Progress Notes ---
DATE: 09/14/2016 SUBJECTIVE: Chart reviewed and the patient interviewed. Also discussed the patient's condition with the staff and reviewed records and labs. The patient is still anxious and is still in irritable mood. The patient also is still pacing up and down the unit, but easier to redirect her. The patient is preoccupied with "my will not take me and I will go other place." at the time being, but she is still nervous and tensed. ASSESSMENT: The patient is still manicky, but not overtly manicky and easier to redirect her. TREATMENT PLAN: manager of health is still working on placement issue and I discussed with both case management manager and red hat linux administrator of the hospital placement issue, and they are both working on discharge plans and placement issue at the same time. We will continue monitoring her medications and behavior and continue to follow up. [facility]# [id number]
--- NOTE | 2016-09-15 20:56 | General Progress Note ---
Subjective - Review of Systems Subjective: PATIENT IS SEEN AND EXAMINED. NO CHEST PAIN,SOB,NAUSEA,VOMITING,HEADACHE. I AM FEELING OK. DISCUSSED WITH STAFF RE: OVERNIGHT EVENTS. Objective - Results Result Diagrams: 09/15/16 06:50 09/15/16 06:50 Recent Labs: Laboratory Last Values WBC 4.3 Th/cmm (4.8-10.8) L D 09/15/16 06:50 RBC 3.53 Mil/cmm (3.80-5.10) L 09/15/16 06:50 Hgb 11.2 gm/dL (11.7-15.5) L 09/15/16 06:50 Hct 32.1 % (35.0-45.0) L 09/15/16 06:50 MCV 91.0 fl (81-100) 09/15/16 06:50 MCH 31.7 pg (27.0-31.0) H 09/15/16 06:50 MCHC Differential 34.8 pg (28.0-36.0) 09/15/16 06:50 RDW 11.2 % (11.5-20.0) L 09/15/16 06:50 Plt Count 205 Th/cmm (150-400) 09/15/16 06:50 MPV 6.8 fl 09/15/16 06:50 Neutrophils % 52.8 % (40.0-80.0) 09/15/16 06:50 Lymphocytes % 36.9 % (20.0-50.0) 09/15/16 06:50 Monocytes % 6.7 % (2.0-10.0) 09/15/16 06:50 Eosinophils % 3.0 % (0.0-5.0) 09/15/16 06:50 Basophils % 0.6 % (0.0-2.0) 09/15/16 06:50 Sodium 143 mEq/L (136-145) 09/15/16 06:50 Potassium 4.2 mEq/L (3.5-5.1) 09/15/16 06:50 Chloride 113 mEq/L (98-107) H 09/15/16 06:50 Carbon Dioxide 30.0 mEq/L (21.0-31.0) 09/15/16 06:50 Anion Gap 4.2 (7.0-16.0) L 09/15/16 06:50 BUN 36 mg/dL (7-25) H 09/15/16 06:50 Creatinine 1.8 mg/dL (0.6-1.2) H 09/15/16 06:50 Est GFR ( Amer) 37.2 ml/min (>90) 09/15/16 06:50 Est GFR (Non-Af Amer) 30.7 ml/min 09/15/16 06:50 BUN/Creatinine Ratio 20.0 09/15/16 06:50 Glucose 86 mg/dL (70-105) 09/15/16 06:50 POC Glucose 282 MG/DL (70 - 105) H 09/15/16 17:04 Hemoglobin A1c % 7.3 % (4.0-6.0) H 08/24/16 11:03 Calcium 9.4 mg/dL (8.6-10.3) 09/15/16 06:50 Total Bilirubin 0.3 mg/dL (0.3-1.0) 09/15/16 06:50 AST 15 U/L (13-39) 09/15/16 06:50 ALT 13 U/L (7-52) 09/15/16 06:50 Alkaline Phosphatase 45 U/L (34-104) 09/15/16 06:50 Total Protein 6.2 gm/dL (6.0-8.3) 09/15/16 06:50 Albumin 3.6 gm/dL (3.7-5.3) L 09/15/16 06:50 Globulin 2.6 gm/dL 09/15/16 06:50 Albumin/Globulin Ratio 1.4 (1.0-1.8) 09/15/16 06:50 Triglycerides 185 mg/dL (<150) H 08/24/16 11:03 Cholesterol 169 mg/dL (<200) 08/24/16 11:03 LDL Cholesterol Direct 97 mg/dL (75-193) 08/24/16 11:03 HDL Cholesterol 49 mg/dL (23-92) 08/24/16 11:03 TSH 0.66 uIU/ml (0.34-5.60) 08/24/16 11:03 Valproic Acid 59.7 ug/mL (50.0-100.0) 09/05/16 08:40 RPR NONREACTIVE (NONREACTIVE) 08/24/16 11:03 Hepatitis A IgM Ab Negative (Negative) 08/24/16 11:03 Hep Bs Antigen Negative (Negative) 08/24/16 11:03 Hep B Core IgM Ab Negative (Negative) 08/24/16 11:03 Hepatitis C Antibody <0.1 s/co ratio (0.0-0.9) 08/24/16 11:03 - Physical Exam Vitals and I&O: Vital Signs Temp 98.2 F 09/15/16 16:41 Pulse 91 09/15/16 16:41 Resp 20 09/15/16 16:41 BP 124/75 09/15/16 16:41 Pulse Ox 97 09/15/16 16:41 Intake & Output 09/15/16 09/15/16 09/16/16 06:59 18:59 06:59 Intake Total 1000 Balance 1000 Intake: Oral 1000 Other: # Voids 4 # Bowel Movements 2 Active Medications: Current Medications Acetaminophen (Tylenol) 650 mg PO Q4HR PRN PRN Reason: Pain (Mild) Stop: 10/23/16 16:09 Last Admin: 09/10/16 12:34 Dose: 650 mg Al Hydrox/Mg Hydrox/Simethicone (Maalox) 30 ml PO Q4HR PRN PRN Reason: GI DISTRESS Stop: 10/23/16 16:09 Benztropine Mesylate (Cogentin) 1 mg PO DAILY JOURDAN Stop: 10/24/16 08:59 Last Admin: 09/15/16 08:23 Dose: 1 mg Clonazepam (Klonopin) 2 mg PO BID JOURDAN PRN Reason: Protocol Stop: 10/24/16 08:59 Last Admin: 09/15/16 17:05 Dose: 2 mg Divalproex Sodium (Depakote Dr) 1,000 mg PO HS JOURDAN PRN Reason: Protocol Stop: 10/31/16 20:59 Last Admin: 09/14/16 20:43 Dose: 1,000 mg Docusate Sodium (Colace) 100 mg PO DAILY JOURDAN Stop: 10/24/16 08:59 Last Admin: 09/15/16 08:23 Dose: 100 mg Insulin Aspart (Novolog Insulin Sliding Scale) 0 units SUBQ BIDAC JOURDAN PRN Reason: Protocol Stop: 10/24/16 07:29 Last Admin: 09/15/16 17:13 Dose: 5 units Insulin Detemir (Levemir Insulin) 23 units SUBQ BID JOURDAN PRN Reason: Protocol Stop: 10/24/16 08:59 Last Admin: 09/15/16 17:13 Dose: 23 unit Lisinopril (Zestril) 2.5 mg PO HS JOURDAN Stop: 10/23/16 20:59 Last Admin: 09/14/16 20:43 Dose: 2.5 mg Lorazepam (Ativan) 1 mg PO Q6HR JOURDAN PRN Reason: Protocol Stop: 10/24/16 00:00 Last Admin: 09/15/16 17:06 Dose: 1 mg Magnesium Hydroxide (Milk Of Magnesia) 30 ml PO HS PRN PRN Reason: Constipation Stop: 11/08/16 18:32 Last Admin: 09/13/16 13:07 Dose: 30 ml Multivitamins/Vitamin C (Theragran) 1 tab PO DAILY JOURDAN Stop: 10/24/16 08:59 Last Admin: 09/15/16 08:23 Dose: 1 tab Quetiapine Fumarate (Seroquel) 200 mg PO HS JOURDAN PRN Reason: Protocol Stop: 10/29/16 20:59 Last Admin: 09/14/16 20:44 Dose: 200 mg Quetiapine Fumarate (Seroquel) 100 mg PO TID JOURDAN PRN Reason: Protocol Stop: 11/03/16 13:59 Last Admin: 09/15/16 14:23 Dose: 100 mg Sertraline HCl (Zoloft) 50 mg PO DAILY JOURDAN PRN Reason: Protocol Stop: 10/24/16 08:59 Last Admin: 09/15/16 08:23 Dose: 50 mg Zolpidem Tartrate (Ambien) 5 mg PO HS PRN PRN Reason: Insomnia Stop: 10/23/16 16:09 Last Admin: 09/14/16 20:58 Dose: 5 mg General: Alert, Cooperative, No acute distress HEENT: Atraumatic, PERRLA, EOMI Neck: Supple, +2 carotid pulse wo bruit Cardiovascular: Regular rate, Normal S1, Normal S2 Lungs: Clear to auscultation Abdomen: Bowel sounds, Soft Extremities: Other (no edema) Neurological: Normal gait Assessment/Plan - Assessment Assessment: DIABETES INSULIN REQUIRING BETTER SUGAR CONTROL. HYPERTENSION. HYPOTHYRODISM. CKD3. DJD. DEBILITY PSYCH DISORDER. HYPERLIPEDEMIA. - Plan Plan: MONITOR GLUCOSE AND VITALS INSULIN THERAPY. ORAL HYPOGLYCEMIC AGENT. PSYCH MEDS. FOLLOW UP LAB. PSYCH FOLLOW UP. FALL PRECAUTIONS. GENERAL NURSING CARE MEDICATION MANAGEMENT. SYMPTOMS CONTROL CONTINUE CURRENT CARE DISCUSSED WITH STAFF. Nutritional Asmnt/Malnutr-PDOC - Dietary Evaluation Malnutrition Findings (Please click <Entered> for more info): Nutritional Asmnt/Malnutrition Start: 08/25/16 14: 17 Text: Status: Complete Freq: Document 08/25/16 14:17 GSUN (Rec: 08/25/16 14:30 [email or web address]) Nutritional Asmnt/Malnutrition Patient General Information Nutritional Screening High Risk Screening Diagnosis ER: paranoid schizophrenia, renal insufficiency Pertinent Medical Hx/Surgical Hx ER: HTN, chronic renal disease , hypothyroidism, hyperlipidemia, paranoid schizophrenia, anxiety, insomnia, major depression, DM2 Subjective Information 56 year old female from SNF. Upon entering pt's room, pt asked RD to leave, unable to interview. Mild fat wasting to legs noted. Spoke to RN MANAN Haile stated pt has very good appetite, eats whatever she wants, does not follow a DM diet, no difficulties chewing/ swallowing noted. RD discussed [id number] for pt with RN. Current Diet Order/ Nutrition Support [id number] Pertinent Medications Maalox, Colace, Novolog, Levemir, Theragran Pertinent Labs 08/24: sodium 131L, BUN 29H, creaitnine 1.7H, glucose 352H, A1c 7.3H, triglycerides 185H Nutritional Hx/Data Height 1.65 m Height (Calculated Centimeters) 165.1 Current Weight (lbs) 63.957 kg Weight (Calculated Kilograms) 64.0 Weight (Calculated Grams) 97023.5 [place] Body Weight 125 Weight Status Approriate GI Symptoms Skin Integrity/Comment: Paul 20. Skin intact. Estimated Nutritional Goals BEE in Kcals: Using Current wt Calories/Kcals/Kg CBW 64kg Kcals Calculated 1600-1920kcal (25-30kcal/kg) Protein: Using Current wt Protein g/kg: CBW Protein Calculated 38-1g (0.6-1g/kg, renal) Fluid: ml Per MD (hx. renal) Nutritional Problem 1. Problem Problem Altered nutrition related laboratory values related to Etiology DM aeb Signs/Symptoms: A1c 7.3, glucose 352 on adm Intervention/Recommendation Comments 1. Recommend [id number] to promote glycemic control. Discussed with RN Lazara. 2. Monitor sodium level, recommend low sodium restriction to aid renal function if/once sodium level normalize. Expected Outcomes/Goals Expected Outcomes/Goals 1. PO intake to meet at least 75% of estimated nutritional needs.
--- NOTE | 2016-09-16 01:33 | Progress Notes ---
DATE: 09/15/2016 SUBJECTIVE: Chart reviewed and the patient interviewed. Also, discussed the patient's condition with the staff and reviewed records and labs. The patient still has periods of anxiety and agitation, but less than before. The patient also is interacting more and slightly easier to redirect her. She also is sleeping better. The patient is still obsessed with her and ____ to talk to him. He is still calling her every now and then, which makes the patient ____. The patient continued to comply with taking her medications. client solutions manager is still unable to find a place for the patient and is still working on trying to find placement for the patient. ASSESSMENT AND PLAN: The patient is still waiting for placement and comply with taking medications. We will continue current medications and monitor her condition and behavior and we will continue to follow up. JOB# [id number]
[2016-09-16] MEDS: INSULIN ASPART SLIDING SCALE 100 UNITS/ML UNIT SUBQ SCH ×2 (06:57→16:28)
[2016-09-16] MEDS: Benztropine 1 MG TAB PO SCH (08:26)
[2016-09-16] MEDS: Multivitamin Tab PO SCH (08:26)
[2016-09-16] MEDS: Insulin Detemir 100 units/mL 10mL Vial SUBQ SCH ×2 (08:28→16:31)
--- NOTE | 2016-09-16 23:36 | Progress Notes ---
DATE: 09/16/2016 SUBJECTIVE: The patient was seen, chart reviewed, and discussed with staff. I have reviewed the reasons of the patient's admission. She does remain anxious, agitated, upset, so states she is leaving today, thanking all the staff members, approaching the door, requiring a lot of redirection and disoriented. The patient has been medication compliant, but remains symptomatic, not safe for discharge at this time. ASSESSMENT: The patient remains gravely disabled, still bizarre, confused, disoriented. PLAN: Continue to monitor. We will titrate her medications. Given the severity of the patient's current symptoms, she is not safe for discharge. [facility]# [id number]
[2016-09-17] MEDS: INSULIN ASPART SLIDING SCALE 100 UNITS/ML UNIT SUBQ SCH ×2 (07:51→16:40)
[2016-09-17] MEDS: Magnesium Hydroxide (MOM) 30 mL UDC PO PRN (09:02)
[2016-09-17] MEDS: Benztropine 1 MG TAB PO SCH (09:03)
[2016-09-17] MEDS: Multivitamin Tab PO SCH (09:03)
[2016-09-17] MEDS: Insulin Detemir 100 units/mL 10mL Vial SUBQ SCH ×2 (09:58→16:41)
--- NOTE | 2016-09-17 23:20 | Progress Notes ---
DATE: 09/17/2016 SUBJECTIVE: The patient was seen, chart reviewed, and discussed with staff. The patient is still confused, saying good bye to everybody, believes that she is leaving today, thanking all the staff members, requiring a lot of prompting, somewhat confused, wandering behaviors; however, no agitation noted. No escalation. No violent behaviors. Medications were reviewed. No side effects. ASSESSMENT: The patient remains somewhat disoriented, bizarre, confused, and not safe for a lower level of care. PLAN: Continue to monitor. Continue Zoloft, continue Seroquel. The patient does seem to be calmer. We will monitor and follow up. [facility]# [id number]
[2016-09-18] MEDS: INSULIN ASPART SLIDING SCALE 100 UNITS/ML UNIT SUBQ SCH ×2 (06:46→16:16)
[2016-09-18] MEDS: Benztropine 1 MG TAB PO SCH (08:50)
[2016-09-18] MEDS: Multivitamin Tab PO SCH (08:50)
[2016-09-18] MEDS: Insulin Detemir 100 units/mL 10mL Vial SUBQ SCH ×3 (09:09→17:20)
[2016-09-19] MEDS: INSULIN ASPART SLIDING SCALE 100 UNITS/ML UNIT SUBQ SCH ×2 (06:41→17:01)
[2016-09-19] MEDS: Insulin Detemir 100 units/mL 10mL Vial SUBQ SCH ×2 (08:12→17:05)
[2016-09-19] MEDS: Benztropine 1 MG TAB PO SCH (09:00)
[2016-09-19] MEDS: Multivitamin Tab PO SCH (09:01)
--- NOTE | 2016-09-19 16:19 | General Progress Note ---
Subjective - Review of Systems Subjective: PATIENT IS SEEN AND EXAMINED. NO CHEST PAIN,SOB,NAUSEA,VOMITING,HEADACHE. DISCUSSED WITH STAFF RE: OVERNIGHT EVENTS. Objective - Results Result Diagrams: 09/15/16 06:50 09/15/16 06:50 Recent Labs: Laboratory Last Values WBC 4.3 Th/cmm (4.8-10.8) L D 09/15/16 06:50 RBC 3.53 Mil/cmm (3.80-5.10) L 09/15/16 06:50 Hgb 11.2 gm/dL (11.7-15.5) L 09/15/16 06:50 Hct 32.1 % (35.0-45.0) L 09/15/16 06:50 MCV 91.0 fl (81-100) 09/15/16 06:50 MCH 31.7 pg (27.0-31.0) H 09/15/16 06:50 MCHC Differential 34.8 pg (28.0-36.0) 09/15/16 06:50 RDW 11.2 % (11.5-20.0) L 09/15/16 06:50 Plt Count 205 Th/cmm (150-400) 09/15/16 06:50 MPV 6.8 fl 09/15/16 06:50 Neutrophils % 52.8 % (40.0-80.0) 09/15/16 06:50 Lymphocytes % 36.9 % (20.0-50.0) 09/15/16 06:50 Monocytes % 6.7 % (2.0-10.0) 09/15/16 06:50 Eosinophils % 3.0 % (0.0-5.0) 09/15/16 06:50 Basophils % 0.6 % (0.0-2.0) 09/15/16 06:50 Sodium 143 mEq/L (136-145) 09/15/16 06:50 Potassium 4.2 mEq/L (3.5-5.1) 09/15/16 06:50 Chloride 113 mEq/L (98-107) H 09/15/16 06:50 Carbon Dioxide 30.0 mEq/L (21.0-31.0) 09/15/16 06:50 Anion Gap 4.2 (7.0-16.0) L 09/15/16 06:50 BUN 36 mg/dL (7-25) H 09/15/16 06:50 Creatinine 1.8 mg/dL (0.6-1.2) H 09/15/16 06:50 Est GFR ( Amer) 37.2 ml/min (>90) 09/15/16 06:50 Est GFR (Non-Af Amer) 30.7 ml/min 09/15/16 06:50 BUN/Creatinine Ratio 20.0 09/15/16 06:50 Glucose 86 mg/dL (70-105) 09/15/16 06:50 POC Glucose 120 MG/DL (70 - 105) H 09/19/16 06:37 Hemoglobin A1c % 7.3 % (4.0-6.0) H 08/24/16 11:03 Calcium 9.4 mg/dL (8.6-10.3) 09/15/16 06:50 Total Bilirubin 0.3 mg/dL (0.3-1.0) 09/15/16 06:50 AST 15 U/L (13-39) 09/15/16 06:50 ALT 13 U/L (7-52) 09/15/16 06:50 Alkaline Phosphatase 45 U/L (34-104) 09/15/16 06:50 Total Protein 6.2 gm/dL (6.0-8.3) 09/15/16 06:50 Albumin 3.6 gm/dL (3.7-5.3) L 09/15/16 06:50 Globulin 2.6 gm/dL 09/15/16 06:50 Albumin/Globulin Ratio 1.4 (1.0-1.8) 09/15/16 06:50 Triglycerides 185 mg/dL (<150) H 08/24/16 11:03 Cholesterol 169 mg/dL (<200) 08/24/16 11:03 LDL Cholesterol Direct 97 mg/dL (75-193) 08/24/16 11:03 HDL Cholesterol 49 mg/dL (23-92) 08/24/16 11:03 TSH 0.66 uIU/ml (0.34-5.60) 08/24/16 11:03 Valproic Acid 59.7 ug/mL (50.0-100.0) 09/05/16 08:40 RPR NONREACTIVE (NONREACTIVE) 08/24/16 11:03 Hepatitis A IgM Ab Negative (Negative) 08/24/16 11:03 Hep Bs Antigen Negative (Negative) 08/24/16 11:03 Hep B Core IgM Ab Negative (Negative) 08/24/16 11:03 Hepatitis C Antibody <0.1 s/co ratio (0.0-0.9) 08/24/16 11:03 - Physical Exam Vitals and I&O: Vital Signs Temp 98.1 F 09/19/16 15:13 Pulse 76 09/19/16 15:13 Resp 18 09/19/16 15:13 BP 112/67 09/19/16 15:13 Pulse Ox 96 09/19/16 15:13 Intake & Output 09/18/16 09/19/16 09/19/16 18:59 06:59 18:59 Intake Total 1200 480 Balance 1200 480 Intake: Oral 1200 480 Other: # Voids 4 2 # Bowel Movements 1 0 Active Medications: Current Medications Acetaminophen (Tylenol) 650 mg PO Q4HR PRN PRN Reason: Pain (Mild) Stop: 10/23/16 16:09 Last Admin: 09/19/16 12:38 Dose: 650 mg Al Hydrox/Mg Hydrox/Simethicone (Maalox) 30 ml PO Q4HR PRN PRN Reason: GI DISTRESS Stop: 10/23/16 16:09 Last Admin: 09/17/16 18:44 Dose: 30 ml Benztropine Mesylate (Cogentin) 1 mg PO DAILY JOURDAN Stop: 10/24/16 08:59 Last Admin: 09/19/16 09:00 Dose: 1 mg Clonazepam (Klonopin) 2 mg PO BID JOURDAN PRN Reason: Protocol Stop: 10/24/16 08:59 Last Admin: 09/19/16 09:00 Dose: 2 mg Divalproex Sodium (Depakote Dr) 1,000 mg PO HS JOURDAN PRN Reason: Protocol Stop: 10/31/16 20:59 Last Admin: 09/18/16 21:06 Dose: 1,000 mg Docusate Sodium (Colace) 100 mg PO DAILY JOURDAN Stop: 10/24/16 08:59 Last Admin: 09/19/16 09:01 Dose: 100 mg Insulin Aspart (Novolog Insulin Sliding Scale) 0 units SUBQ BIDAC JOURDAN PRN Reason: Protocol Stop: 10/24/16 07:29 Last Admin: 09/19/16 06:41 Dose: Not Given Insulin Detemir (Levemir Insulin) 23 units SUBQ BID JOURDAN PRN Reason: Protocol Stop: 10/24/16 08:59 Last Admin: 09/19/16 08:12 Dose: 23 unit Lisinopril (Zestril) 2.5 mg PO HS JOURDAN Stop: 10/23/16 20:59 Last Admin: 09/18/16 21:07 Dose: Not Given Lorazepam (Ativan) 1 mg PO Q6HR JOURDAN PRN Reason: Protocol Stop: 10/24/16 00:00 Last Admin: 09/19/16 12:38 Dose: 1 mg Magnesium Hydroxide (Milk Of Magnesia) 30 ml PO HS PRN PRN Reason: Constipation Stop: 11/08/16 18:32 Last Admin: 09/17/16 09:02 Dose: 30 ml Multivitamins/Vitamin C (Theragran) 1 tab PO DAILY JOURDAN Stop: 10/24/16 08:59 Last Admin: 09/19/16 09:01 Dose: 1 tab Quetiapine Fumarate (Seroquel) 200 mg PO HS JOURDAN PRN Reason: Protocol Stop: 10/29/16 20:59 Last Admin: 09/18/16 21:08 Dose: 200 mg Quetiapine Fumarate (Seroquel) 100 mg PO TID JOURDAN PRN Reason: Protocol Stop: 11/03/16 13:59 Last Admin: 09/19/16 13:58 Dose: 100 mg Sertraline HCl (Zoloft) 50 mg PO DAILY JOURDAN PRN Reason: Protocol Stop: 10/24/16 08:59 Last Admin: 09/19/16 09:02 Dose: 50 mg Zolpidem Tartrate (Ambien) 5 mg PO HS PRN PRN Reason: Insomnia Stop: 10/23/16 16:09 Last Admin: 09/17/16 21:09 Dose: 5 mg General: Alert, Cooperative, No acute distress HEENT: Atraumatic, PERRLA, EOMI Neck: Supple, +2 carotid pulse wo bruit Cardiovascular: Regular rate, Normal S1, Normal S2 Abdomen: Bowel sounds, Soft Neurological: Normal gait Assessment/Plan - Assessment Assessment: DIABETES INSULIN REQUIRING BETTER SUGAR CONTROL. HYPERTENSION. HYPOTHYRODISM. CKD3. DJD. DEBILITY PSYCH DISORDER. HYPERLIPEDEMIA. - Plan Plan: MONITOR GLUCOSE AND VITALS INSULIN THERAPY. ORAL HYPOGLYCEMIC AGENT. PSYCH MEDS. FOLLOW UP LAB. PSYCH FOLLOW UP. FALL PRECAUTIONS. GENERAL NURSING CARE MEDICATION MANAGEMENT. SYMPTOMS CONTROL CONTINUE CURRENT CARE DISCUSSED WITH STAFF. Nutritional Asmnt/Malnutr-PDOC - Dietary Evaluation Malnutrition Findings (Please click <Entered> for more info): Nutritional Asmnt/Malnutrition Start: 08/25/16 14: 17 Text: Status: Complete Freq: Document 08/25/16 14:17 GSUN (Rec: 08/25/16 14:30 [email or web address] [email or web address]) Nutritional Asmnt/Malnutrition Patient General Information Nutritional Screening High Risk Screening Diagnosis ER: paranoid schizophrenia, renal insufficiency Pertinent Medical Hx/Surgical Hx ER: HTN, chronic renal disease , hypothyroidism, hyperlipidemia, paranoid schizophrenia, anxiety, insomnia, major depression, DM2 Subjective Information 56 year old female from SNF. Upon entering pt's room, pt asked RD to leave, unable to interview. Mild fat wasting to legs noted. Spoke to MANAN Haile RN stated pt has very good appetite, eats whatever she wants, does not follow a DM diet, no difficulties chewing/ swallowing noted. RD discussed [id number] for pt with RN. Current Diet Order/ Nutrition Support [id number] Pertinent Medications Maalox, Colace, Novolog, Levemir, Theragran Pertinent Labs 08/24: sodium 131L, BUN 29H, creaitnine 1.7H, glucose 352H, A1c 7.3H, triglycerides 185H Nutritional Hx/Data Height 1.65 m Height (Calculated Centimeters) 165.1 Current Weight (lbs) 63.957 kg Weight (Calculated Kilograms) 64.0 Weight (Calculated Grams) 97976.5 [place] Body Weight 125 Weight Status Approriate GI Symptoms Skin Integrity/Comment: Paul 20. Skin intact. Estimated Nutritional Goals BEE in Kcals: Using Current wt Calories/Kcals/Kg CBW 64kg Kcals Calculated 1600-1920kcal (25-30kcal/kg) Protein: Using Current wt Protein g/kg: CBW Protein Calculated 38-1g (0.6-1g/kg, renal) Fluid: ml Per MD (hx. renal) Nutritional Problem 1. Problem Problem Altered nutrition related laboratory values related to Etiology DM aeb Signs/Symptoms: A1c 7.3, glucose 352 on adm Intervention/Recommendation Comments 1. Recommend [id number] to promote glycemic control. Discussed with MANAN Haile. 2. Monitor sodium level, recommend low sodium restriction to aid renal function if/once sodium level normalize. Expected Outcomes/Goals Expected Outcomes/Goals 1. PO intake to meet at least 75% of estimated nutritional needs.
[2016-09-19] MEDS: Magnesium Hydroxide (MOM) 30 mL UDC PO PRN (20:41)
--- NOTE | 2016-09-20 02:21 | Progress Notes ---
DATE: 09/19/[address] Guardado. Case was discussed with staff of the patient. The patient is currently awaiting placement. She continues to be intrusive. She is unpredictable and impulsive. In general, she is much better. She is responding better to redirection. She does not need any medication for an emergency basis. No side effects with the medication, no sedation, no nausea and no extrapyramidal symptoms. We will continue to work with the patient in group therapy, milieu therapy, and adjust the medication as needed. JOB# [id number]
[2016-09-20] MEDS: INSULIN ASPART SLIDING SCALE 100 UNITS/ML UNIT SUBQ SCH ×2 (06:49→17:09)
[2016-09-20] MEDS: Benztropine 1 MG TAB PO SCH (08:34)
[2016-09-20] MEDS: Multivitamin Tab PO SCH (08:34)
[2016-09-20] MEDS: Insulin Detemir 100 units/mL 10mL Vial SUBQ SCH ×2 (08:35→17:08)
[2016-09-20] MEDS: Magnesium Hydroxide (MOM) 30 mL UDC PO PRN (21:03)
--- NOTE | 2016-09-20 23:50 | Progress Notes ---
DATE: 09/20/2016 SUBJECTIVE: Chart reviewed and the patient interviewed. Also discussed the patient's condition with the staff and reviewed records and labs. The patient still has periods of agitation and irritability. The patient also still has episodes of anger and irritability. She also still asking about her discharge and senior case manager is still working on her discharge. No place accepted the patient yet. The patient has been compliant with taking her medications with no side effects of medications, ASSESSMENT: The patient still need placement, but seems to be calmer and easier to redirect her. TREATMENT PLAN: We will continue monitoring her behavior and her condition and work on her impulse control. Also, we will get Depakote blood level tomorrow. Also, continue Seroquel same dose as well as Zoloft and Depakote and we will continue to follow up. JOB# [id number]
[2016-09-21] MEDS: INSULIN ASPART SLIDING SCALE 100 UNITS/ML UNIT SUBQ SCH ×2 (06:30→17:25)
[2016-09-21] MEDS: Multivitamin Tab PO SCH (08:41)
[2016-09-21] MEDS: Benztropine 1 MG TAB PO SCH (08:41)
[2016-09-21] MEDS: Insulin Detemir 100 units/mL 10mL Vial SUBQ SCH ×2 (08:42→17:33)
--- NOTE | 2016-09-22 03:06 | Progress Notes ---
DATE: 09/21/2016 SUBJECTIVE: Chart reviewed and the patient interviewed. Also, discussed the patient's condition with the staff and reviewed records and labs. The patient seems to be calmer than before, but she is still having mood swings and anxiety. The patient also is still interacting minimally with others. The patient denies any intention to harm herself or others. She still needs redirections. Otherwise, the patient is compliant with taking her medications. ASSESSMENT: The patient is . TREATMENT PLAN: Continue monitoring her behavior and her condition closely. Also discussed with case aideunclaimed property manager issue and continue to work on placement. JOB# [id number]
--- NOTE | 2016-09-22 05:56 | Discharge Summary ---
DATE OF DISCHARGE: 09/22/2016 FINAL DIAGNOSES/PRIMARY DIAGNOSES: Bipolar disorder, manic episodes, with psychosis. REASON FOR HOSPITALIZATION: The patient was admitted to the hospital because of acute manic episode and the patient was agitated and irritable and aggressive. HOSPITAL COURSE: The patient continued to be manicky and hyperverbal and demanding. The patient also was easily agitated and aggressive with the staff. The patient also was not able to sleep at night. She also was restless and she was aggressive with the staff. The patient was started on Depakote and Seroquel. Gradually, the patient's affect was brighter and the patient was calmer. She was less agitated and less aggressive and it was easier to follow directions. The patient also was sleeping better at night. Placement was an issue and finally, the patient was accepted in [facility]. Physical exam of the patient showed no acute medical problems. The patient has no major medical problems while in the hospital and no abnormal labs. AFTER DISCHARGE PLANS: The patient was discharged from the hospital to [facility]. Plan to continue treatment and follow up there. EXPECTED OUTCOME AFTER DISCHARGE: Fair if the patient continues outpatient treatment and continued to take care ____ psychotropic medications. [facility]# [id number]
[2016-09-22] MEDS: INSULIN ASPART SLIDING SCALE 100 UNITS/ML UNIT SUBQ SCH ×2 (06:35→17:24)
[2016-09-22] MEDS: Insulin Detemir 100 units/mL 10mL Vial SUBQ SCH ×3 (08:39→17:18)
[2016-09-22] MEDS: Benztropine 1 MG TAB PO SCH (09:35)
[2016-09-22] MEDS: Multivitamin Tab PO SCH (09:36)
[2016-09-23] MEDS: INSULIN ASPART SLIDING SCALE 100 UNITS/ML UNIT SUBQ SCH ×2 (06:30→17:45)
[2016-09-23] MEDS: Benztropine 1 MG TAB PO SCH (08:24)
[2016-09-23] MEDS: Multivitamin Tab PO SCH (08:24)
[2016-09-23] MEDS: Insulin Detemir 100 units/mL 10mL Vial SUBQ SCH ×3 (08:26→17:48)
[2016-09-23] MEDS: Magnesium Hydroxide (MOM) 30 mL UDC PO PRN (20:31)
--- NOTE | 2016-09-24 02:41 | Progress Notes ---
DATE: 09/23/2016 SUBJECTIVE: The patient was seen, chart reviewed and discussed. The patient continues to be very confused, very forgetful, answering the same questions over and over again. The patient was to be discharged yesterday; however, placement was unable to be secured in ____ open room as a result. The patient has expressed confused over this ____ many times requiring staff to repeatedly explain this to her, often to no avail. Some reports say that the patient has been sundowning, often becomes very euphoric and talkative in the late afternoon time. PLAN: The patient continues to be very unpredictable and is currently awaiting placement It is felt that she will require inpatient care and placement until placement is secured. JOB# [id number]
[2016-09-24] MEDS: INSULIN ASPART SLIDING SCALE 100 UNITS/ML UNIT SUBQ SCH ×2 (06:30→17:11)
[2016-09-24] MEDS: Multivitamin Tab PO SCH (10:42)
[2016-09-24] MEDS: Benztropine 1 MG TAB PO SCH (10:43)
[2016-09-24] MEDS: Insulin Detemir 100 units/mL 10mL Vial SUBQ SCH ×2 (11:57→17:12)
--- NOTE | 2016-09-24 12:48 | Admit Criteria Form ---
Admit Criteria Forms - Admit Criteria Diagnosis: PSYCHIATRIC DISORDERS Clinical Indications for Inpatient Care (Place 'X' for any and all applicable criteria): Ongoing inpatient care may be needed for ANY ONE of the following(1)(2)(3)(4)(6) (7)(8): [ ]I. Danger to self or others not manageable at lower level of care. [ ]II. Grave disability (eg, inability to perform self care necessary at lower level of care) [X ]III. Agitation or inappropriate behavior interfering with care for primary condition (eg, attempting to discontinue lines or drains prematurely, unable to cooperate with respiratory care) [ ]IV. Severe disability or disorder indicated by ALL of the following: [ ]a) Severe behavioral health disorder-related symptoms or condition indicated by ANY ONE of the following: [ ]i) Severe problem with cognition, memory, judgment, or impulse control [ ]ii) Severe clinical manifestations (eg, hallucinations, delusions, other acute psychotic symptoms, sandra, extreme agitation or anxiety) [ ]b) Patient management at lower level of care is not feasible until acute intervention or modification is initiated. Extended stay beyond goal length of stay for the primary condition may be indicated when ANY ONE of the following is present: (1)(2)(3)(4): [ ]a) Patient is a danger to self or others and not manageable at lower level of care. [ ]b) Behavior crisis management, including physical or chemical restraints, is required and is not available at a lower level of care. [ ]c) Behavioral symptoms (e.g., agitation, somnolence, inappropriate behavior) are present, and are not manageable at a lower level of care. [ ]d) Patient cannot understand follow-up treatment and crisis plan. [ ]e) Provider and supports are not sufficiently available at lower level of care. [ ]f) Patient cannot participate (e.g., verify absence of plan for harm) and is in needed of monitoring. The original [facility] [employer] content created by [facility] [employer] has been revised. The portions of the content which have been revised are identified through the use of italic text or in bold, and [facility] [employer] has neither reviewed nor approved the modified material. All other unmodified content is copyright [facility] [employer]. Please see references footnoted in the original [facility] edition 2016 Admit Criteria Met?: Yes
--- NOTE | 2016-09-25 05:12 | Progress Notes ---
DATE: 09/24/2016 SUBJECTIVE: The patient was seen, chart reviewed, and discussed with staff. The patient continues to be quite confused, disoriented, requiring numerous redirections, and re-orientation; however, she is considerably less intrusive compared to yesterday, has been compliant with her medications. PLAN: The patient continues to be extremely confused and disorganized, felt that she will require treatment. We will monitor the patient on a daily basis for response to medications and titrate the meds as needed. JOB# [id number]
[2016-09-25] MEDS: INSULIN ASPART SLIDING SCALE 100 UNITS/ML UNIT SUBQ SCH ×2 (06:30→16:44)
[2016-09-25] MEDS: Benztropine 1 MG TAB PO SCH (08:32)
[2016-09-25] MEDS: Multivitamin Tab PO SCH (08:32)
[2016-09-25] MEDS: Insulin Detemir 100 units/mL 10mL Vial SUBQ SCH ×2 (08:33→16:44)
[2016-09-25] MEDS: Magnesium Hydroxide (MOM) 30 mL UDC PO PRN (20:45)
[2016-09-26] MEDS: INSULIN ASPART SLIDING SCALE 100 UNITS/ML UNIT SUBQ SCH ×2 (06:42→16:35)
[2016-09-26] MEDS: Benztropine 1 MG TAB PO SCH (08:11)
[2016-09-26] MEDS: Insulin Detemir 100 units/mL 10mL Vial SUBQ SCH ×2 (08:11→17:02)
[2016-09-26] MEDS: Multivitamin Tab PO SCH (08:11)
--- NOTE | 2016-09-26 21:49 | Progress Notes ---
DATE: 09/25/2016 SUBJECTIVE: Chart reviewed and the patient interviewed. Also discussed the patient's condition with the staff and reviewed records and labs. The patient was supposed to be discharged last Sunday, but the discharge plan was not successful and the case management manager called me and said that there is no trace of the patient to be discharged. The patient is still calm and cooperative and she is compliant with taking her medications. She denies any thoughts of suicide or homicide and easier to redirect her. TREATMENT PLAN: We will continue monitoring her behavior and her condition and continue to work on discharge plans. JOB# [id number]
[2016-09-27] MEDS: INSULIN ASPART SLIDING SCALE 100 UNITS/ML UNIT SUBQ SCH ×2 (06:38→17:14)
[2016-09-27] MEDS: Benztropine 1 MG TAB PO SCH (08:15)
[2016-09-27] MEDS: Insulin Detemir 100 units/mL 10mL Vial SUBQ SCH ×2 (08:15→18:25)
[2016-09-27] MEDS: Multivitamin Tab PO SCH (08:15)
[2016-09-27] MEDS: Magnesium Hydroxide (MOM) 30 mL UDC PO PRN (09:19)
--- NOTE | 2016-09-27 20:07 | Progress Notes ---
DATE: 09/26/2016 SUBJECTIVE: Chart reviewed and the patient interviewed. Also, discussed the patient's condition with the staff and reviewed records and labs. The patient continued to be asking about placement and about discharge plans, but the patient is calm and easy to redirect her. The patient also is cooperative with her treatment, and she is compliant with taking her medications. She denies any suicidal or homicidal ideations, but she also is sleeping better and she is having thought processes that are mainly goal directed. ASSESSMENT: The patient is less panicky. TREATMENT PLAN: We will continue monitoring her behavior and her condition closely. Also, continue to work on her discharge plans and placement issue. So far, piano case maker is unable to find a safe place for the patient for her discharge. We will continue monitoring behavior and current medications and we will continue to follow up. JOB# [id number]
--- NOTE | 2016-09-28 05:49 | Progress Notes ---
DATE: 09/27/2016 SUBJECTIVE: Chart reviewed and the patient interviewed. Also discussed the patient's condition with the staff and reviewed records and labs. The patient is anxious about placement, but she is cooperative with the treatment. Decreased manic behavior. The patient's thought processes are mainly goal directed and no behavioral problems. The patient also denies any thoughts of suicide or homicide, and she denies any side effects of medications. ASSESSMENT: The patient is less manic and more stable. TREATMENT PLAN: Discussed with case plannerpower manager issue and still difficulty to find a place for the patient. The patient still needs close monitoring of her behavior. We will continue monitoring her behavior and working on placement issue and continue to follow up. [facility]# [id number]
[2016-09-28] MEDS: INSULIN ASPART SLIDING SCALE 100 UNITS/ML UNIT SUBQ SCH ×2 (06:31→16:34)
[2016-09-28] MEDS: Multivitamin Tab PO SCH (08:55)
[2016-09-28] MEDS: Benztropine 1 MG TAB PO SCH (08:57)
[2016-09-28] MEDS: Insulin Detemir 100 units/mL 10mL Vial SUBQ SCH ×2 (08:58→16:35)
[2016-09-28] MEDS: Magnesium Hydroxide (MOM) 30 mL UDC PO PRN (11:12)
[2016-09-28] MEDS ORDERED: Fleet Enema 135 mL RC ONE (11:59)
--- NOTE | 2016-09-29 06:10 | Discharge Summary ---
DATE OF DISCHARGE: 09/28/2016 FINAL DIAGNOSIS/PRIMARY DIAGNOSIS: Bipolar disorder, manic episode, moderate to severe. REASON FOR HOSPITALIZATION: The patient was admitted to the hospital because of increased manic behavior. HOSPITAL COURSE: I dictated a discharge summary before, and the patient was supposed to be discharged, but no place accepted the patient. The patient was manicky and she was in irritable mood. The patient was asking to go to her home divorced her and her would not take her home. The patient was started on lithium. Gradually, the patient's affect was brighter, and the patient was calmer, but placement was an issue. Finally, [facility] accepted the patient and the patient was discharged there. The patient had no major medical problems while in the hospital. AFTER DISCHARGE PLANS: The patient [facility] with plan to follow up her there. JOB# [id number]
== END 2016-09-28 16:00 | DRG 885 ==
LOC: ER 10:21 → GERO 13:24
PROVIDERS: ADMIT Psychiatry & Neurology Psychiatry; ATTEND Psychiatry & Neurology Psychiatry
DX: F31.2 Bipolar disorder, current episode manic severe with psychotic features (principal); F03.90 Unspecified dementia, unspecified severity, without behavioral disturbance, psychotic disturbance, mood disturbance, and anxiety; E11.22 Type 2 diabetes mellitus with diabetic chronic kidney disease; N18.3 Chronic kidney disease, stage 3 (moderate); R53.81 Other malaise; M19.90 Unspecified osteoarthritis, unspecified site; E03.9 Hypothyroidism, unspecified; I12.9 Hypertensive chronic kidney disease with stage 1 through stage 4 chronic kidney disease, or unspecified chronic kidney disease; E78.5 Hyperlipidemia, unspecified; F29 Unspecified psychosis not due to a substance or known physiological condition; Z83.3 Family history of diabetes mellitus; Z82.49 Family history of ischemic heart disease and other diseases of the circulatory system; Z79.4 Long term (current) use of insulin; Z79.899 Other long term (current) drug therapy
CPT/HCPCS: 36415-UA; 80048-TC; 80053-TC; 80061-TC; 80074-90; 80164-TC; 82948-90; 83036-90; 84443-TC; 85025-TC; 86592-TC; 90899; 93005; A4216; G0410; J1200; J1630; J1815; J2060; Z7610